=== PATIENT | male | born 1955 | race Caucasian/White ===

== ENCOUNTER → 2019-08-22 08:43 | Outpatient (BNVA) | payer MEDICARE, SELFPAY | PROVIDERS: Family Provider Nurse Practitioner Family; PCP Nurse Practitioner Family; Visit Provider Anesthesiology | DX: G89.29 Other chronic pain (principal); M54.5 Low back pain; M79.651 Pain in right thigh; M79.652 Pain in left thigh; L03.90 Cellulitis, unspecified; Z79.891 Long term (current) use of opiate analgesic | CPT/HCPCS: 99214 ==

== ENCOUNTER 2019-08-28 13:30 | Outpatient (RCR) | payer MEDICARE, SELFPAY | END 2019-09-01 23:59 | disposition home or self-care (01) | LOC: RAD 13:30 | PROVIDERS: Family Provider Nurse Practitioner Family; PCP Nurse Practitioner Family; Visit Provider Surgery | DX: I87.2 Venous insufficiency (chronic) (peripheral) (principal); L97.823 Non-pressure chronic ulcer of other part of left lower leg with necrosis of muscle; M79.604 Pain in right leg; M79.605 Pain in left leg | CPT/HCPCS: 11042; 11045; 99203; 99212; G0463 ==

== ENCOUNTER 2019-08-28 14:11 | Emergency (ER) | payer MEDICARE, SELFPAY ==
[2019-08-28 14:56] LABS: Basophils # 0.2 10^3/uL (0.0-0.1); Basophils % 1.3 %; Eosinophils # 0.4 10^3/uL (0.0-0.8); Eosinophils % 3.7 %; Hematocrit 31.9 % (42.0-52.0); Hemoglobin 9.1 g/dL (11.7-16.6); Lymphocytes # 0.9 10^3/uL (0.8-4.8); Lymphocytes % 8.4 %; Mean Corpuscular HGB Conc 28.5 g/dL (30.0-36.0); Mean Corpuscular Volume 84.2 fL (80-94); Monocytes # 0.9 10^3/uL (0.2-0.9); Neutrophils # 8.7 10^3/uL (1.8-7.7); Neutrophils % 77.8 %; Nucleated Red Blood Cells % 0 %; Platelet Count 302 10^3/cmm (130-400); Red Blood Count 3.79 10^6/uL (4.1-5.3); Red Cell Distribution Width 17.7 % (12.1-15.1); White Blood Count 11.1 10^3/uL (4.0-10.0)
[2019-08-28 15:03] VITALS: BP 170/89; PULSE 63; RESP 16; TEMP 36.4; O2SAT 100; BMI 57.2
[2019-08-28 15:15] LABS: Alanine Aminotransferase 11 U/L (0-41); Albumin Level 3.6 g/dL (3.5-5.2); Alkaline Phosphatase 125 IU/L (40-130); Anion Gap 17.9 (5-19); Aspartate Amino Transferase 14 U/L (0-40); Blood Urea Nitrogen 29 mg/dL (8-23); Calcium 9.3 mg/dL (8.5-10.5); Carbon Dioxide 24 mmol/L (22-29); Chloride 100 mmol/L (98-107); Globulin 3.8 g/dL (1.3-4.6); Glomerular Filtration Rate 61.1 mL/min (90-130); Glucose 256 mg/dL (74-106); Potassium 4.9 mmol/L (3.5-5.1); Sodium 137 mmol/L (136-145); Total Bilirubin 0.3 mg/dL (0.15-1.2); Total Protein 7.4 g/dL (6.6-8.7)
== END 2019-08-28 15:39 | disposition left against medical advice (07) ==
LOC: ER 15:39
PROVIDERS: Emergency Medicine; Emergency Provider Family Medicine; Family Provider Nurse Practitioner Family; PCP Nurse Practitioner Family
DX: Z53.21 Procedure and treatment not carried out due to patient leaving prior to being seen by health care provider (principal)
CPT/HCPCS: 36415; 80053; 85025; 99281

== ENCOUNTER 2019-09-05 13:27 | Emergency (ER) | payer MEDICARE, SELFPAY ==
[2019-09-05 14:52] VITALS: BP 122/74; PULSE 70; RESP 18; TEMP 36.6; O2SAT 94; BMI 61.6
--- NOTE | 2019-09-05 15:00 | XR_ITS ---
WS: [id number] CHEST XRAY TECHNIQUE: Portable chest. CLINICAL INFORMATION: SOB COMPARISON: June 01, 2019 FINDINGS: Heart: Cardiomegaly. Lungs: Mild chronic emphysematous changes. No acute pulmonary infiltrates. Calcified granulomatous di sease. Bones: Normal visualized bony structures. XR/XR chest 1V portable [id number] IMPRESSION: Marked cardiomegaly unchanged. Lungs are well aerated.
[2019-09-05 15:34] LABS: Basophils # 0.2 10^3/uL (0.0-0.1); Basophils % 1.6 %; Eosinophils # 0.6 10^3/uL (0.0-0.8); Eosinophils % 5.6 %; Hematocrit 29.6 % (42.0-52.0); Hemoglobin 8.5 g/dL (11.7-16.6); Lymphocytes # 0.8 10^3/uL (0.8-4.8); Lymphocytes % 8.1 %; Mean Corpuscular HGB Conc 28.7 g/dL (30.0-36.0); Mean Corpuscular Hemoglobin 23.5 pg (28.0-34.0); Mean Platelet Volume 10.2 fL (7.4-10.4); Monocytes # 0.8 10^3/uL (0.2-0.9); Monocytes % 8.1 %; Neutrophils # 7.5 10^3/uL (1.8-7.7); Neutrophils % 75.7 %; Nucleated Red Blood Cells % 0 %; Platelet Count 399 10^3/cmm (130-400); Red Blood Count 3.61 10^6/uL (4.1-5.3); Red Cell Distribution Width 17.6 % (12.1-15.1)
[2019-09-05 15:51] LABS: Alanine Aminotransferase 12 U/L (0-41); Albumin Level 3.6 g/dL (3.5-5.2); Alkaline Phosphatase 133 IU/L (40-130); Anion Gap 14.4 (5-19); Aspartate Amino Transferase 21 U/L (0-40); Blood Urea Nitrogen 29 mg/dL (8-23); Calcium 9.2 mg/dL (8.5-10.5); Carbon Dioxide 25 mmol/L (22-29); Chloride 101 mmol/L (98-107); Globulin 3.9 g/dL (1.3-4.6); Glomerular Filtration Rate 51.2 mL/min (90-130); NT Pro B Type Natriuretic Pept 1048 pg/mL (0-125); Potassium 5.4 mmol/L (3.5-5.1); Sodium 135 mmol/L (136-145); Total Bilirubin 0.2 mg/dL (0.15-1.2); Total Protein 7.5 g/dL (6.6-8.7)
[2019-09-05 16:10] LABS: INR 2.53 (0.8-1.2); Partial Thromboplastin Time 49.1 SECONDS (23.9-36.7)
--- NOTE | 2019-09-05 17:09 | PC.NURSE ---
pt has multiple weeping wounds. Pt has weeping wound to his panis and bilateral lower leg venous staining.
--- NOTE | 2019-09-05 17:42 | ED_ITS ---
Entered by Yamileth Portillo, acting as scribe for Rose Sorenson MD Sep 05, 2019 13:27 HPI - General Adult General: Chief complaint: General Medical Stated complaint: leaking fluid/sent by [facility] Time Seen by Provider: 09/05/19 17:47 Source: patient and family Mode of arrival: wheelchair Limitations: no limitations History of Present Illness: HPI narrative: 64 yo male presents with edema to bilateral legs. pt states this started several days ago but worsened today. pt states he was told he needed to come to the ED by PCP for fluid to be drained off his abdomen. pt has redness to lower extremities and bilateral legs. pt is on lasik. pt denies any pain at this time. complaint: fluid needs drained from abdomen Onset (ago): day(s) (yesterday) Location: abdomen and lower extremity (bilateral leg swelling) Radiation: non-radiation Severity: moderate Pain Consistency: other (no pain,just drainage ) Relieving factors: none Exacerbating factors: movement Associated symptoms: Reports no associated symptoms; Deny chest pain, headache(s) or rash Treatments prior to arrival: other (sent from [facility] for fluid drainage ) Review of Systems Const: Denies: fever, chills, body aches or change in appetite Eyes: Denies: blurry vision or eye discomfort ENMT: Denies: throat pain or dental pain Card: Denies: chest pain : Denies: painful urination Musc: Denies: neck pain or back pain Skin/Breast: Denies: rash Neuro: Denies: headache Psych: Denies: depression Glen/Lymph: Denies: easy bruising All/Imm: Denies: hives PFSH ED PFSH: Statuses (acute, chronic, etc) shown below reflect problem list status as previously entered and may not be historically accurate Social History (System 09/05/19 @ 13:56 by Angelia Pak) Smoking and tobacco status: never smoked Alcohol intake: never Marital status: Physical Exam Const: COMMON NORMALS: no apparent distress, oriented x3 and healthy appearing HENMT: COMMON NORMALS: normocephalic and head/scalp atraumatic HEAD & SCALP: normocephalic and atraumatic Eye: COMMON NORMALS: PERRL and EOMs intact bilaterally PUPIL: Yes PERRL Neck/C-Spine: COMMON NORMALS: full ROM and supple Chest: COMMONS NORMALS: inspection of chest normal and palpation of chest normal Cardio: COMMON NORMALS: regular rate, regular rhythm and no murmurs RATE: regular rate RHYTHM: regular rhythm Extremity: COMMON NORMALS: normal to inspection and full ROM GENERAL: Yes edema (bilateral legs and abdomen) Neuro: COMMON NORMALS: oriented x3 Psych: COMMON NORMALS: mental status grossly normal, thought process normal and cooperative THOUGHT PROCESS: normal thought process Skin: COMMON NORMALS: no rashes or lesions noted and no wounds NARRATIVE SKIN EXAM: 2+ edema to lower extremities GENERAL SKIN EXAM: no rashes or lesions noted Course Vital Signs: Vital signs: Vital Signs Temperature 97.9 F 09/05/19 14:52 Pulse Rate 90 09/05/19 19:29 Respiratory Rate 20 H 09/05/19 19:29 Blood Pressure 128/87 09/05/19 19:29 Pulse Oximetry 93 09/05/19 19:29 MDM - General Adult MDM Narrative: Medical decision making narrative: Patient presents here with edema likely from his CHF along with his obesity. He has no signs of congestive heart failure and his BNP and x-ray here are not worse than previous. 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 Flores and will increase his Lasix from 40 twice a day to 80 twice a day. He is to follow-up with Dr. Flores in 3 to 5 days and return to ER if worsening. Lab Data: Labs: Lab Results 09/05/19 09/05/19 09/05/19 Range/Units 15:12 15:12 15:12 WBC 10.0 (4.0-10.0) 10^3/ uL RBC 3.61 L (4.1-5.3) 10^6/u L Hgb 8.5 L (11.7-16.6) g/dL Hct 29.6 L (42.0-52.0) % MCV 82.0 (80-94) fL MCH 23.5 L (28.0-34.0) pg MCHC 28.7 L (30.0-36.0) g/dL RDW 17.6 H (12.1-15.1) % Plt Count 399 (130-400) 10^3/c mm MPV 10.2 (7.4-10.4) fL Neut % (Auto) 75.7 % Lymph % (Auto) 8.1 % Mellette % (Auto) 8.1 % Eos % (Auto) 5.6 % Baso % (Auto) 1.6 % Neut # (Auto) 7.5 (1.8-7.7) 10^3/u L Lymph # (Auto) 0.8 (0.8-4.8) 10^3/u L Mellette # (Auto) 0.8 (0.2-0.9) 10^3/u L Eos # (Auto) 0.6 (0.0-0.8) 10^3/u L Baso # (Auto) 0.2 H (0.0-0.1) 10^3/u L Nucleated RBC % (a uto) 0 % Nucleated RBCs # 0.0 /100WBC PT 28.20 H (10.5-13.3) SECO NDS INR 2.53 H (0.8-1.2) APTT 49.1 H (23.9-36.7) SECO NDS Sodium 135 L (136-145) mmol/L Potassium 5.4 H (3.5-5.1) mmol/L Chloride 101 (98-107) mmol/L Carbon Dioxide 25 (22-29) mmol/L Anion Gap 14.4 (5-19) BUN 29 H (8-23) mg/dL Creatinine 1.4 H (0.7-1.2) mg/dL GFR Calculation 51.2 L (90-130) mL/min Glucose 151 H (65-115) mg/dL Calcium 9.2 (8.5-10.5) mg/dL Total Bilirubin 0.2 (0.15-1.2) mg/dL AST 21 (0-40) U/L ALT 12 (0-41) U/L Alkaline Phosphata se 133 H (40-130) IU/L NT-Pro-B Natriuret Pep 1048 H (0-125) pg/mL Total Protein 7.5 (6.6-8.7) g/dL Albumin 3.6 (3.5-5.2) g/dL Globulin 3.9 (1.3-4.6) g/dL Imaging Data^: CXR: Attestation: I personally reviewed and interpreted this imaging study as follows: My impression: no acute abnormality Discharge Plan Discharge Patient Disposition: Home, Self-Care Clinical Impression: Leg edema Condition: Stable Prescriptions: New Lasix 80 mg tablet 80 mg PO BID Qty: 60 RF: 0 No Action cephalexin [Keflex] 500 mg capsule 500 mg PO BID 10 Days Qty: 20 RF: 0 buspirone 15 mg tablet 15 mg PO BID 30 Days Qty: 60 RF: 1 duloxetine [Cymbalta] 20 mg capsule,delayed release(DR/EC) 20 mg PO BID 30 Days Qty: 60 RF: 1 tramadol 50 mg tablet 50 mg PO .FIVE TIMES DAILY 30 Days Qty: 150 RF: 1 hydrocodone-acetaminophen 10-325 mg tablet 1 tab PO .FIVE TIMES DAILY PRN (Reason: pain) 30 Days Qty: 150 RF: 0 pregabalin [Lyrica] 150 mg capsule 150 mg PO TID 30 Days Qty: 90 RF: 1 hydrocodone-acetaminophen 10-325 mg tablet 1 tab PO .5 times a day PRN (Reason: pain) 30 Days Qty: 150 RF: 0 furosemide [Lasix] 40 mg tablet 40 mg PO BID RF: 0 Januvia 50 mg tablet 50 mg PO QDAY RF: 0 lisinopril 5 mg tablet 5 mg PO QDAY RF: 0 buspirone 15 mg tablet 15 mg PO BID RF: 0 metoprolol succinate 100 mg tablet extended release 24 hr 100 mg PO BID RF: 0 warfarin 2.5 mg tablet 2.5 mg PO QDAY RF: 0 aspirin [Adult Aspirin Regimen] 81 mg tablet,delayed release (DR/EC) 81 mg PO QDAY RF: 0 atorvastatin 10 mg tablet 10 mg PO QDAY RF: 0 Januvia 50 mg tablet 50 mg PO QDAY Qty: 90 RF: 1 Discharge Orders: Discharge Order (Routine); Ordered 09/05/19 Ordered By: Rose Sorenson Referrals: Davide Castanon, COOKER SYRUP [Primary Care Provider] - 4-7 days Discharge Diet: Advance as tolerated Discharge Activity: Resume usual activity Patient Instructions: Leg Edema (ED) Discharge Date/Time: 09/05/19 19:43 Coding Level of Care Code ED Journalism Professor for g Fwd Exam Problem Focused The documentation recorded by the Bandar pak Bridget Annette, accurately reflects the service I personally performed and the decisions made by me, Rose Sorenson MD Sep 05, 2019 13:27
[2019-09-05] MEDS: FUROsemide 10 mg/mL SDV 10mL 80 MG IVP (18:45)
--- NOTE | 2019-09-05 19:18 | PC.NURSE ---
Introduced self to patient and initiated vital signs. Pt is A&O x 4 and agreeable. Pt was advised by home health nurse and PCP to come to ER due to leakage issue. Pt states that the reason for the ER visit today is due to fluid leakage from base of panus. Area is reddish and warm. Reassured patient of needs and will continue to monitor.
[2019-09-05 19:29] VITALS: BP 128/87; PULSE 90; RESP 20; O2SAT 93
[2019-09-06 08:58] LABS: Glucose 151 mg/dL (65-115)
== END 2019-09-05 19:43 | disposition home or self-care (01) ==
PROVIDERS: Emergency Medicine; Emergency Provider Emergency Medicine; Family Provider Nurse Practitioner Family; PCP Nurse Practitioner Family
DX: R60.0 Localized edema (principal); I50.9 Heart failure, unspecified; E66.9 Obesity, unspecified
CPT/HCPCS: 71045; 80053; 83880; 85025; 85610; 85730; 96374; 96375; 99281; 99283; J1940

== ENCOUNTER → 2019-09-06 08:46 | Outpatient (BNVA) | payer MEDICARE, SELFPAY | PROVIDERS: Family Provider Nurse Practitioner Family; PCP Nurse Practitioner Family; Visit Provider Nurse Practitioner Family | DX: R60.0 Localized edema (principal) | CPT/HCPCS: 83540 ==

== ENCOUNTER → 2019-10-17 08:54 | Outpatient (BNVA) | payer MEDICARE, SELFPAY | PROVIDERS: Family Provider Nurse Practitioner Family; PCP Nurse Practitioner Family; Visit Provider Anesthesiology | DX: G89.29 Other chronic pain (principal); M54.5 Low back pain; Z79.891 Long term (current) use of opiate analgesic | CPT/HCPCS: 99213; 99214 ==

== ENCOUNTER 2020-02-01 19:38 | Inpatient (IN) | payer MEDICARE, SELFPAY ==
[2020-02-01] VITALS (7 sets, daily range): BP systolic 97–114; BP diastolic 57–63; PULSE 73–98; RESP 18–26; TEMP 36.6; O2SAT 93–100
--- NOTE | 2020-02-01 20:01 | W.ED.GENADLT ---
HPI - General Adult General: Chief complaint: General Medical Stated complaint: AMS Time Seen by Provider: 02/01/20 19:52 Source: patient and family Limitations: altered mental status History of Present Illness: HPI narrative: Jacob is a 64-year-old male brought in by his with report of increased confusion, low blood pressure and decreased urinary output for the past 2 days. His states he has not been wanting to eat or drink. She also relates that he has been having hallucinations at times. Patient states that he feels horrible all over but cannot be more specific. Patient admits to actively hallucinating seeing things on the wall that he states do not make sense. is unaware of any fever. He does not complain specifically of chest pain, shortness of breath just that he hurts all over . Review of Systems General: Reports: Other (ROS unobtainable as patient is uncooperative other than as noted from him and in HPI.) PFSH ED PFSH: Medical History Anasarca Anxiety Atrial fibrillation Cardiomyopathy Chronic bilateral low back pain Chronic idiopathic pain syndrome Chronic kidney disease (CKD) Congestive heart failure 20-25% EF pulmonary hypertension Diabetes mellitus Encounter for long-term opiate analgesic use History of cardioversion Failed electrical cardioversion in 2011 for A. fib Morbid obesity Venous stasis Warfarin anticoagulation Surgical History S/P ankle fusion LEFT S/P cholecystectomy Family History Father Diabetes Social History Smoking and tobacco status: never smoked Second hand smoke exposure: No Alcohol intake: never Marital status: History of recent travel: No Physical Exam Const: COMMON NORMALS: healthy appearing GENERAL APPEARANCE: cooperative, disheveled and lethargic NUTRITIONAL APPEARANCE: obese ORIENTATION/CONSCIOUSNESS: Yes awake, Yes oriented to person and Yes lethargic HENMT: COMMON NORMALS: normocephalic, atraumatic, external ears normal, EAC's normal and Normal external nose present HEAD & SCALP: normal to inspection, normocephalic and atraumatic FACE & SINUS: normal facial exam and face symmetric NOSE: Normal external nose present and Normal nares present EXTERNAL EAR: Yes external ears normal EXTERNAL AUDITORY CANAL: EAC's normal MOUTH: Normal oral and palatal mucosa present, lip normal and tongue normal Eye: COMMON NORMALS: Equal, round and reactive pupils present and conjunctivae normal GENERAL EYE: appearance normal, both eyes and all related structures ALIGNMENT: Yes alignment normal PERIORBITAL: periorbital findings normal EYELID: eyelids normal CONJUNCTIVA: Yes conjunctivae normal SCLERA: sclerae normal PUPIL: Yes Equal, round and reactive pupils present Neck/C-Spine: COMMON NORMALS: full ROM, no lymphadenopathy, supple, no meningeal signs and no JVD GENERAL: Yes normal visual inspection and Yes trachea midline Chest: COMMONS NORMALS: normal inspection of the chest and normal palpation of entire chest wall Resp: COMMON NORMALS: normal respiratory effort, No retractions and No use of accessory muscles EFFORT & INSPECTION: Yes able to speak in complete sentences and Yes symmetric chest movement AUSCULTATION: no crackles, no rales, no rhonchi and no wheezes Cardio: COMMON NORMALS: no JVD, regular rate, regular rhythm, S1 normal heart sound present and S2 normal heart sound present RATE: regular rate RHYTHM: regular rhythm HEART SOUNDS: S1 normal heart sound present, S2 normal heart sound present, no click, no gallops, no murmurs, no rubs and abnormal split S2 GI: COMMON NORMALS: Soft to palpation and No hepatosplenomegaly present PALPATION: Yes Soft to palpation, No Tenderness to palpation present (GI), No Guarding due to palpation present (GI), No Rigid due to palpation, Yes No hepatosplenomegaly present, No Hernia present, No Palpable mass present, No Pulsatile mass present and Yes Other GI palpation findings present (Large abdominal pannus with underlying candidal rash) : COMMON NORMALS: Yes no CVA tenderness BLADDER/KIDNEY EXAM: Yes no CVA tenderness Back/Pelvis: COMMON NORMALS: no CVA tenderness, thoracic and lumbar spine normal to inspection, no thoracic nor lumbar tenderness and thoraco-lumbar ROM normal Extremity: COMMON NORMALS: normal to inspection, full ROM, capillary refill normal, no joint enlargement, no clubbing, cyanosis or edema and no calf tenderness Neuro: COMMON NORMALS: CN's II-XII intact bilaterally, moves all extremities, no focal motor deficits and no sensory deficits noted SENSORIUM/ORIENTATION: Yes oriented to person and Yes lethargic MENINGEAL SIGNS: Yes no meningeal signs SPEECH: speech normal Skin: COMMON NORMALS: no rashes or lesions noted, turgor normal, no jaundice, no petechiae and no mottling GENERAL SKIN EXAM: no rashes or lesions noted and turgor normal Course ED course: 2199 -Case reviewed with Dr. Betancourt, on-call for tele-nephrology. He agrees to do a tele-nephrology consult in the ER. He agrees with the hyperkalemic cocktail and a Min catheter along with IV fluids. Vital Signs: Vital signs: Vital Signs Temperature 99.9 F H 02/02/20 12:00 Pulse Rate 98 02/02/20 12:00 Respiratory Rate 20 H 02/02/20 12:00 Blood Pressure 100/43 02/02/20 12:00 Pulse Oximetry 100 02/02/20 12:00 MDM - General Adult MDM Narrative: Medical decision making narrative: Jacob is a 64-year-old male who comes in with confusion, low blood pressure, decreased appetite, confusion and hallucinations. CT head is normal. His EKG does not reveal signs of hyperkalemia. I did review the case with Drs. Millan and Serafin, they will admit and consult respectively. Dr. Wilkinson is aware for possible consult if needed for dialysis. Min catheter is been placed with 350 cc of urine obtained. Patient is getting gentle hydration and Dr. Greene will monitor clinically. Repeat BMP is pending at this time. Patient is still encephalopathic likely due to uremia but his vital signs are stable with a good blood pressure. As the patient's INR is elevated we are reversing this in case he needs a dialysis catheter. Lab Data: Attestation: I reviewed the patient's lab results. Labs: Lab Results 02/01/20 02/01/20 02/01/20 Range/Units 20:34 20:34 20:34 WBC 17.1 H (4.0-10.0) 10^3/ uL RBC 3.96 L (4.1-5.3) 10^6/u L Hgb 8.3 L (11.7-16.6) g/dL Hct 29.8 L (42.0-52.0) % MCV 75.3 L (80-94) fL MCH 21.0 L (28.0-34.0) pg MCHC 27.9 L (30.0-36.0) g/dL RDW 22.0 H (12.1-15.1) % Plt Count 524 H (130-400) 10^3/c mm MPV 9.8 (7.4-10.4) fL Neut % (Auto) 86.5 % Lymph % (Auto) 3.6 % Woodson % (Auto) 7.9 % Eos % (Auto) 0.6 % Baso % (Auto) 0.6 % Neut # (Auto) 14.8 H (1.8-7.7) 10^3/u L Lymph # (Auto) 0.6 L (0.8-4.8) 10^3/u L Woodson # (Auto) 1.4 H (0.2-0.9) 10^3/u L Eos # (Auto) 0.1 (0.0-0.8) 10^3/u L Baso # (Auto) 0.1 (0.0-0.1) 10^3/u L Nucleated RBC % (a uto) 0.2 % Nucleated RBCs # 0.0 /100WBC PT 35.50 H (10.5-13.3) SECO NDS INR 3.39 H (0.8-1.2) Specimen Type Sample Site ABG pH (7.35-7.45) ABG pCO2 (35-45) mmHg ABG pO2 (80.0-100.0) mmH g ABG HCO3 (22-26) mmol/L ABG O2 Saturation ABG Base Excess (-2.0-2.0) mmol/ L Gautam Test A-a O2 Gradient (5-10) mmHg Hematocrit (42-52) % Hgb O2 Saturation (95-100) % Carboxyhemoglobin (0.4-20.1) %THgb Methemoglobin (0.4-1.5) % Total Hemoglobin (14-18) g/dL Ionized Calcium (1.1-1.4) mmol/L O2 Delivery Device FiO2 % Clinical Professor ID Sodium 130 L (136-145) mmol/L Potassium 7.7 H* (3.5-5.1) mmol/L Chloride 102 (98-107) mmol/L Carbon Dioxide 15 L (22-29) mmol/L Anion Gap 20.7 H (5-19) BUN 104 H* D (8-23) mg/dL Creatinine 4.7 H (0.7-1.2) mg/dL GFR Calculation 12.7 L (90-130) mL/min Glucose 87 (65-115) mg/dL Calculated Osmolal ity 271 L (285-295) mOsm/k g Lactic Acid (0.5-2.2) mmol/L Uric Acid (3.4-7.0) mg/dL Calcium 9.4 (8.5-10.5) mg/dL Magnesium 2.4 H (1.7-2.3) mg/dL Total Bilirubin 0.4 (0.15-1.2) mg/dL AST 26 (0-40) U/L ALT 16 (0-41) U/L Alkaline Phosphata se 130 (40-130) IU/L Ammonia (16-60) umol/L Creatine Kinase (39-308) U/L Troponin T Baselin e (0-15) ng/L Troponin T 120 Min tunica-biloxi (0-15) ng/L Delta Troponin T (0-10) ABS# NT-Pro-B Natriuret Pep 2884 H (0-125) pg/mL Total Protein 7.4 (6.6-8.7) g/dL Albumin 3.4 L (3.5-5.2) g/dL Globulin 4.0 (1.3-4.6) g/dL Lipase 92 H (13-60) U/L TSH (0.27-4.20) uIU/ mL Urine Color (Yellow) Urine Appearance (CLEAR) Urine pH (5-7) Ur Specific Gravit y (1.005-1.030) Urine Protein (Negative) Urine Glucose (UA) (Normal) Urine Ketones (Negative) Urine Blood (Negative) Urine Nitrate (Negative) Urine Bilirubin (NEGATIVE) Prot Sulfosalicyli c Acd Urine Urobilinogen (Negative) mg/dL Ur Leukocyte Christa ase (Negative) Ur Microscopic Ind ic Urine RBC (0-2) /hpf Urine WBC (0-5) /hpf Ur Squamous Epith Cells (0-5) Amorphous Sediment Urine Bacteria (NONE) Ur Random Sodium mmol/L Ur Random Urea Nit rogn mg/dL Urine Creatinine (39-259) mg/dL Urine Opiates Scre en (Negative) ng/mL Ur Barbiturates Sc reen (Negative) ng/mL Ur Phencyclidine S crn (Negative) ng/mL Ur Amphetamines Sc reen (Negative) ng/mL U Benzodiazepines Scrn (Negative) ng/mL Urine Cocaine Scre en (Negative) ng/mL U Marijuana (THC) Screen (Negative) ng/mL Ethyl Alcohol < 10 (0-10) mg/dL Serum Ketones (Negative) 02/01/20 02/01/20 02/01/20 Range/Units 20:34 20:34 20:34 WBC (4.0-10.0) 10^3/ uL RBC (4.1-5.3) 10^6/u L Hgb (11.7-16.6) g/dL Hct (42.0-52.0) % MCV (80-94) fL MCH (28.0-34.0) pg MCHC (30.0-36.0) g/dL RDW (12.1-15.1) % Plt Count (130-400) 10^3/c mm MPV (7.4-10.4) fL Neut % (Auto) % Lymph % (Auto) % Woodson % (Auto) % Eos % (Auto) % Baso % (Auto) % Neut # (Auto) (1.8-7.7) 10^3/u L Lymph # (Auto) (0.8-4.8) 10^3/u L Woodson # (Auto) (0.2-0.9) 10^3/u L Eos # (Auto) (0.0-0.8) 10^3/u L Baso # (Auto) (0.0-0.1) 10^3/u L Nucleated RBC % (a uto) % Nucleated RBCs # /100WBC PT (10.5-13.3) SECO NDS INR (0.8-1.2) Specimen Type Sample Site ABG pH (7.35-7.45) ABG pCO2 (35-45) mmHg ABG pO2 (80.0-100.0) mmH g ABG HCO3 (22-26) mmol/L ABG O2 Saturation ABG Base Excess (-2.0-2.0) mmol/ L Gautam Test A-a O2 Gradient (5-10) mmHg Hematocrit (42-52) % Hgb O2 Saturation (95-100) % Carboxyhemoglobin (0.4-20.1) %THgb Methemoglobin (0.4-1.5) % Total Hemoglobin (14-18) g/dL Ionized Calcium (1.1-1.4) mmol/L O2 Delivery Device FiO2 % Clinical Professor ID Sodium (136-145) mmol/L Potassium (3.5-5.1) mmol/L Chloride (98-107) mmol/L Carbon Dioxide (22-29) mmol/L Anion Gap (5-19) BUN (8-23) mg/dL Creatinine (0.7-1.2) mg/dL GFR Calculation (90-130) mL/min Glucose (65-115) mg/dL Calculated Osmolal ity (285-295) mOsm/k g Lactic Acid 1.4 (0.5-2.2) mmol/L Uric Acid (3.4-7.0) mg/dL Calcium (8.5-10.5) mg/dL Magnesium (1.7-2.3) mg/dL Total Bilirubin (0.15-1.2) mg/dL AST (0-40) U/L ALT (0-41) U/L Alkaline Phosphata se (40-130) IU/L Ammonia 26 (16-60) umol/L Creatine Kinase (39-308) U/L Troponin T Baselin e (0-15) ng/L Troponin T 120 Min tunica-biloxi (0-15) ng/L Delta Troponin T (0-10) ABS# NT-Pro-B Natriuret Pep (0-125) pg/mL Total Protein (6.6-8.7) g/dL Albumin (3.5-5.2) g/dL Globulin (1.3-4.6) g/dL Lipase (13-60) U/L TSH (0.27-4.20) uIU/ mL Urine Color (Yellow) Urine Appearance (CLEAR) Urine pH (5-7) Ur Specific Gravit y (1.005-1.030) Urine Protein (Negative) Urine Glucose (UA) (Normal) Urine Ketones (Negative) Urine Blood (Negative) Urine Nitrate (Negative) Urine Bilirubin (NEGATIVE) Prot Sulfosalicyli c Acd Urine Urobilinogen (Negative) mg/dL Ur Leukocyte Christa ase (Negative) Ur Microscopic Ind ic Urine RBC (0-2) /hpf Urine WBC (0-5) /hpf Ur Squamous Epith Cells (0-5) Amorphous Sediment Urine Bacteria (NONE) Ur Random Sodium mmol/L Ur Random Urea Nit rogn mg/dL Urine Creatinine (39-259) mg/dL Urine Opiates Scre en (Negative) ng/mL Ur Barbiturates Sc reen (Negative) ng/mL Ur Phencyclidine S crn (Negative) ng/mL Ur Amphetamines Sc reen (Negative) ng/mL U Benzodiazepines Scrn (Negative) ng/mL Urine Cocaine Scre en (Negative) ng/mL U Marijuana (THC) Screen (Negative) ng/mL Ethyl Alcohol (0-10) mg/dL Serum Ketones Negative (Negative) 02/01/20 02/01/20 02/01/20 Range/Units 20:34 20:35 22:28 WBC (4.0-10.0) 10^3/ uL RBC (4.1-5.3) 10^6/u L Hgb (11.7-16.6) g/dL Hct (42.0-52.0) % MCV (80-94) fL MCH (28.0-34.0) pg MCHC (30.0-36.0) g/dL RDW (12.1-15.1) % Plt Count (130-400) 10^3/c mm MPV (7.4-10.4) fL Neut % (Auto) % Lymph % (Auto) % Woodson % (Auto) % Eos % (Auto) % Baso % (Auto) % Neut # (Auto) (1.8-7.7) 10^3/u L Lymph # (Auto) (0.8-4.8) 10^3/u L Woodson # (Auto) (0.2-0.9) 10^3/u L Eos # (Auto) (0.0-0.8) 10^3/u L Baso # (Auto) (0.0-0.1) 10^3/u L Nucleated RBC % (a uto) % Nucleated RBCs # /100WBC PT (10.5-13.3) SECO NDS INR (0.8-1.2) Specimen Type Arterial Sample Site Brachial, right ABG pH 7.22 L (7.35-7.45) ABG pCO2 32.0 L (35-45) mmHg ABG pO2 86.6 (80.0-100.0) mmH g ABG HCO3 12.9 L (22-26) mmol/L ABG O2 Saturation 94.1 ABG Base Excess -13.7 L (-2.0-2.0) mmol/ L Gautam Test Pos A-a O2 Gradient 21.4 H (5-10) mmHg Hematocrit 26.1 L (42-52) % Hgb O2 Saturation 92.3 L (95-100) % Carboxyhemoglobin 0.6 (0.4-20.1) %THgb Methemoglobin 1.3 (0.4-1.5) % Total Hemoglobin 8.5 L (14-18) g/dL Ionized Calcium 1.3 (1.1-1.4) mmol/L O2 Delivery Device None FiO2 21.0 % Clinical Professor ID [email or web address] Sodium 133.0 (136-145) mmol/L Potassium 7.4 H (3.5-5.1) mmol/L Chloride (98-107) mmol/L Carbon Dioxide (22-29) mmol/L Anion Gap (5-19) BUN (8-23) mg/dL Creatinine (0.7-1.2) mg/dL GFR Calculation (90-130) mL/min Glucose 92.0 (65-115) mg/dL Calculated Osmolal ity (285-295) mOsm/k g Lactic Acid (0.5-2.2) mmol/L Uric Acid (3.4-7.0) mg/dL Calcium (8.5-10.5) mg/dL Magnesium (1.7-2.3) mg/dL Total Bilirubin (0.15-1.2) mg/dL AST (0-40) U/L ALT (0-41) U/L Alkaline Phosphata se (40-130) IU/L Ammonia (16-60) umol/L Creatine Kinase (39-308) U/L Troponin T Baselin e 64 H (0-15) ng/L Troponin T 120 Min tunica-biloxi (0-15) ng/L Delta Troponin T (0-10) ABS# NT-Pro-B Natriuret Pep (0-125) pg/mL Total Protein (6.6-8.7) g/dL Albumin (3.5-5.2) g/dL Globulin (1.3-4.6) g/dL Lipase (13-60) U/L TSH (0.27-4.20) uIU/ mL Urine Color Dark yellow (Yellow) Urine Appearance Cloudy (CLEAR) Urine pH 5 (5-7) Ur Specific Gravit y 1.025 (1.005-1.030) Urine Protein Neg (Negative) Urine Glucose (UA) Norm (Normal) Urine Ketones Negative (Negative) Urine Blood Neg (Negative) Urine Nitrate Negative (Negative) Urine Bilirubin 1+ H (NEGATIVE) Prot Sulfosalicyli c Acd Urine Urobilinogen Norm (Negative) mg/dL Ur Leukocyte Christa ase 2+ H (Negative) Ur Microscopic Ind ic Urine RBC 0-4 H (0-2) /hpf Urine WBC 15-25 H (0-5) /hpf Ur Squamous Epith Cells 0-4 H (0-5) Amorphous Sediment 3+ Urine Bacteria 2+ H (NONE) Ur Random Sodium mmol/L Ur Random Urea Nit rogn mg/dL Urine Creatinine (39-259) mg/dL Urine Opiates Scre en (Negative) ng/mL Ur Barbiturates Sc reen (Negative) ng/mL Ur Phencyclidine S crn (Negative) ng/mL Ur Amphetamines Sc reen (Negative) ng/mL U Benzodiazepines Scrn (Negative) ng/mL Urine Cocaine Scre en (Negative) ng/mL U Marijuana (THC) Screen (Negative) ng/mL Ethyl Alcohol (0-10) mg/dL Serum Ketones (Negative) 02/01/20 02/01/20 02/01/20 Range/Units 22:28 22:28 23:16 WBC (4.0-10.0) 10^3/ uL RBC (4.1-5.3) 10^6/u L Hgb (11.7-16.6) g/dL Hct (42.0-52.0) % MCV (80-94) fL MCH (28.0-34.0) pg MCHC (30.0-36.0) g/dL RDW (12.1-15.1) % Plt Count (130-400) 10^3/c mm MPV (7.4-10.4) fL Neut % (Auto) % Lymph % (Auto) % Woodson % (Auto) % Eos % (Auto) % Baso % (Auto) % Neut # (Auto) (1.8-7.7) 10^3/u L Lymph # (Auto) (0.8-4.8) 10^3/u L Woodson # (Auto) (0.2-0.9) 10^3/u L Eos # (Auto) (0.0-0.8) 10^3/u L Baso # (Auto) (0.0-0.1) 10^3/u L Nucleated RBC % (a uto) % Nucleated RBCs # /100WBC PT (10.5-13.3) SECO NDS INR (0.8-1.2) Specimen Type Sample Site ABG pH (7.35-7.45) ABG pCO2 (35-45) mmHg ABG pO2 (80.0-100.0) mmH g ABG HCO3 (22-26) mmol/L ABG O2 Saturation ABG Base Excess (-2.0-2.0) mmol/ L Gautam Test A-a O2 Gradient (5-10) mmHg Hematocrit (42-52) % Hgb O2 Saturation (95-100) % Carboxyhemoglobin (0.4-20.1) %THgb Methemoglobin (0.4-1.5) % Total Hemoglobin (14-18) g/dL Ionized Calcium (1.1-1.4) mmol/L O2 Delivery Device FiO2 % Clinical Professor ID Sodium (136-145) mmol/L Potassium (3.5-5.1) mmol/L Chloride (98-107) mmol/L Carbon Dioxide (22-29) mmol/L Anion Gap (5-19) BUN (8-23) mg/dL Creatinine (0.7-1.2) mg/dL GFR Calculation (90-130) mL/min Glucose (65-115) mg/dL Calculated Osmolal ity (285-295) mOsm/k g Lactic Acid (0.5-2.2) mmol/L Uric Acid (3.4-7.0) mg/dL Calcium (8.5-10.5) mg/dL Magnesium (1.7-2.3) mg/dL Total Bilirubin (0.15-1.2) mg/dL AST (0-40) U/L ALT (0-41) U/L Alkaline Phosphata se (40-130) IU/L Ammonia (16-60) umol/L Creatine Kinase (39-308) U/L Troponin T Baselin e (0-15) ng/L Troponin T 120 Min tunica-biloxi 56.59 H (0-15) ng/L Delta Troponin T -7.41 L (0-10) ABS# NT-Pro-B Natriuret Pep (0-125) pg/mL Total Protein (6.6-8.7) g/dL Albumin (3.5-5.2) g/dL Globulin (1.3-4.6) g/dL Lipase (13-60) U/L TSH (0.27-4.20) uIU/ mL Urine Color Cancelled (Yellow) Urine Appearance Cancelled (CLEAR) Urine pH Cancelled (5-7) Ur Specific Gravit y Cancelled (1.005-1.030) Urine Protein Cancelled (Negative) Urine Glucose (UA) Cancelled (Normal) Urine Ketones Cancelled (Negative) Urine Blood Cancelled (Negative) Urine Nitrate Cancelled (Negative) Urine Bilirubin Cancelled (NEGATIVE) Prot Sulfosalicyli c Acd Cancelled Urine Urobilinogen Cancelled (Negative) mg/dL Ur Leukocyte Christa ase Cancelled (Negative) Ur Microscopic Ind ic Cancelled Urine RBC (0-2) /hpf Urine WBC (0-5) /hpf Ur Squamous Epith Cells (0-5) Amorphous Sediment Urine Bacteria (NONE) Ur Random Sodium 18 mmol/L Ur Random Urea Nit rogn 503 mg/dL Urine Creatinine 177 (39-259) mg/dL Urine Opiates Scre en Positive H (Negative) ng/mL Ur Barbiturates Sc reen Negative (Negative) ng/mL Ur Phencyclidine S crn Negative (Negative) ng/mL Ur Amphetamines Sc reen Negative (Negative) ng/mL U Benzodiazepines Scrn Negative (Negative) ng/mL Urine Cocaine Scre en Negative (Negative) ng/mL U Marijuana (THC) Screen Negative (Negative) ng/mL Ethyl Alcohol (0-10) mg/dL Serum Ketones (Negative) 02/01/20 Range/Units 23:16 WBC (4.0-10.0) 10^3/ uL RBC (4.1-5.3) 10^6/u L Hgb (11.7-16.6) g/dL Hct (42.0-52.0) % MCV (80-94) fL MCH (28.0-34.0) pg MCHC (30.0-36.0) g/dL RDW (12.1-15.1) % Plt Count (130-400) 10^3/c mm MPV (7.4-10.4) fL Neut % (Auto) % Lymph % (Auto) % Woodson % (Auto) % Eos % (Auto) % Baso % (Auto) % Neut # (Auto) (1.8-7.7) 10^3/u L Lymph # (Auto) (0.8-4.8) 10^3/u L Woodson # (Auto) (0.2-0.9) 10^3/u L Eos # (Auto) (0.0-0.8) 10^3/u L Baso # (Auto) (0.0-0.1) 10^3/u L Nucleated RBC % (a uto) % Nucleated RBCs # /100WBC PT (10.5-13.3) SECO NDS INR (0.8-1.2) Specimen Type Sample Site ABG pH (7.35-7.45) ABG pCO2 (35-45) mmHg ABG pO2 (80.0-100.0) mmH g ABG HCO3 (22-26) mmol/L ABG O2 Saturation ABG Base Excess (-2.0-2.0) mmol/ L Gautam Test A-a O2 Gradient (5-10) mmHg Hematocrit (42-52) % Hgb O2 Saturation (95-100) % Carboxyhemoglobin (0.4-20.1) %THgb Methemoglobin (0.4-1.5) % Total Hemoglobin (14-18) g/dL Ionized Calcium (1.1-1.4) mmol/L O2 Delivery Device FiO2 % Clinical Professor ID Sodium 135 L (136-145) mmol/L Potassium 6.4 H (3.5-5.1) mmol/L Chloride 105 (98-107) mmol/L Carbon Dioxide 14 L (22-29) mmol/L Anion Gap 22.4 H (5-19) BUN 103 H* (8-23) mg/dL Creatinine 4.6 H (0.7-1.2) mg/dL GFR Calculation 13.0 L (90-130) mL/min Glucose 67 (65-115) mg/dL Calculated Osmolal ity 279 L (285-295) mOsm/k g Lactic Acid (0.5-2.2) mmol/L Uric Acid 10.3 H (3.4-7.0) mg/dL Calcium 9.1 (8.5-10.5) mg/dL Magnesium (1.7-2.3) mg/dL Total Bilirubin (0.15-1.2) mg/dL AST (0-40) U/L ALT (0-41) U/L Alkaline Phosphata se (40-130) IU/L Ammonia (16-60) umol/L Creatine Kinase 375 H* (39-308) U/L Troponin T Baselin e (0-15) ng/L Troponin T 120 Min tunica-biloxi (0-15) ng/L Delta Troponin T (0-10) ABS# NT-Pro-B Natriuret Pep (0-125) pg/mL Total Protein (6.6-8.7) g/dL Albumin (3.5-5.2) g/dL Globulin (1.3-4.6) g/dL Lipase (13-60) U/L TSH 1.11 (0.27-4.20) uIU/ mL Urine Color (Yellow) Urine Appearance (CLEAR) Urine pH (5-7) Ur Specific Gravit y (1.005-1.030) Urine Protein (Negative) Urine Glucose (UA) (Normal) Urine Ketones (Negative) Urine Blood (Negative) Urine Nitrate (Negative) Urine Bilirubin (NEGATIVE) Prot Sulfosalicyli c Acd Urine Urobilinogen (Negative) mg/dL Ur Leukocyte Christa ase (Negative) Ur Microscopic Ind ic Urine RBC (0-2) /hpf Urine WBC (0-5) /hpf Ur Squamous Epith Cells (0-5) Amorphous Sediment Urine Bacteria (NONE) Ur Random Sodium mmol/L Ur Random Urea Nit rogn mg/dL Urine Creatinine (39-259) mg/dL Urine Opiates Scre en (Negative) ng/mL Ur Barbiturates Sc reen (Negative) ng/mL Ur Phencyclidine S crn (Negative) ng/mL Ur Amphetamines Sc reen (Negative) ng/mL U Benzodiazepines Scrn (Negative) ng/mL Urine Cocaine Scre en (Negative) ng/mL U Marijuana (THC) Screen (Negative) ng/mL Ethyl Alcohol (0-10) mg/dL Serum Ketones (Negative) EKG Data^: EKG 1: Attestation: I personally reviewed and interpreted this EKG as follows: EKG interpretation date: 02/01/20 EKG interpretation time: 21:27 Interpretation: Atrial fibrillation at 77 beats a minute, interventricular conduction delay, otherwise no acute ST-T wave findings that are new. Computer generated interpretation: Chest X-Ray 02/01/20 20:02 IMPRESSION: No changes since September 05, [address] 02/01/20 20:02 IMPRESSION: No acute intracranial abnormality. Radiation Dose CTDIVOL = (mGy): DLP = 1304.14 (mGy-cm) Renal Ultrasound 02/02/20 04:52 IMPRESSION: Technically difficult examination. Kidneys appear normal. Critical Care Time Critical Care Time: Critical Care Time: Yes Total Critical Care Time: 30 Attestation: Critical care time consisted of reviewing of labs, treating hyperkalemia, consultation with other services/physicians as well as working with family, reviewing charts, documenting and arranging for admission. Discharge Plan Discharge Patient Disposition: Admitted As Inpatient Admit Provider: Wes Millan Clinical Impression: Acute renal failure, Congestive heart failure, Warfarin anticoagulation Condition: Stable Discharge Date/Time: 02/02/20 01:16 Coding Level of Care Code ED Haz Tech for Teeg Lionel
--- NOTE | 2020-02-01 20:02 | ECG_ITS ---
[facility] Test Date: 2020-02-01 Pat Name: Jacob Ibarra Department: Room: Gender: Male V [employer] C[employer]: : 1955 Requested By: Teri Deras Order Number: [id number] Fuentes MD: Celina Bates M.D. Measurements Intervals Drifting Rate: 77 P: UT: -1 QRS: -61 QRSD: 118 T: 108 QT: 354 QTc: 401 Interpretive Statements ATRIAL FIBRILLATION LOW QRS VOLTAGE IN PRECORDIAL LEADS INFERIOR MYOCARDIAL INFARCTION , PROBABLY OLD ANTEROSEPTAL MYOCARDIAL INFARCTION , OF INDETERMINATE AGE Compared to ECG 06/01/2019 18:42:59 Ventricular premature complex(es) no longer present Aberrant conduction of supraventricular beat(s) no longer present Left-axis deviation no longer present T-wave abnormality no longer present Possible ischemia no longer present Myocardial infarct finding still present Electronically Signed On 02-01-2020 21:22:38 CDT by Celina Bates M.D. [id number]
--- NOTE | 2020-02-01 20:02 | CTR_ITS ---
PROCEDURE INFORMATION: Exam: CT Head Without Contrast Exam date and time: 02/01/2020 8:10 PM Age: 64 years old Clinical indication: Altered mental status/memory loss; Confusion or disorientation; Additional info: AMS TECHNIQUE: Imaging protocol: Computed tomography of the head without contrast. Radiation optimization: All CT scans at this facility use at least one of these dose optimization techniques: automated exposure control; mA and/or kV adjustment per patient size (includes targeted exams where dose is matched to clinical indication); or iterative reconstruction. COMPARISON: No relevant prior studies available. RADIATION DOSE METRICS: Total DLP (mGy-cm): 1304.14 FINDINGS: Brain: Normal. No hemorrhage. Unremarkable white matter. No mass effect. Ventricles: Normal. No ventriculomegaly. Bones/joints: Unremarkable. No acute fracture. Sinuses: Visualized sinuses are unremarkable. No fluid levels. Mastoid air cells: Visualized mastoid air cells are well aerated. Soft tissues: Unremarkable. CT/CT head wo con* [id number] IMPRESSION: No acute intracranial abnormality. Radiation Dose CTDIVOL = (mGy): DLP = 1304.14 (mGy-cm)
--- NOTE | 2020-02-01 20:02 | XR_ITS ---
WS: [id number] CHEST XRAY TECHNIQUE: Portable chest. CLINICAL INFORMATION: AMS COMPARISON: September 05, 2019 FINDINGS: Heart: Cardiomegaly. Lungs: Mild pulmonary vascular congestion. No acute pulmonary infiltrates. No changes since September 05, 2019 Bones: Normal visualized bony structures. XR/XR chest 1V portable [id number] IMPRESSION: No changes since September 05, 2019
[2020-02-01 20:41] LABS: ABG PH Result 7.22 (7.35-7.45); Alveolar-Arterial Oxygen Gradi 21.4 mmHg (5-10); Arterial Blood Gas Hematocrit 26.1 % (42-52); Base Excess ABG -13.7 mmol/L (-2.0-2.0); Blood Gas Allen Test Pos; Blood Gas Sample Site Brachial, right; Blood Gas Sample Type Arterial; Carboxyhemoglobin 0.6 %THgb (0.4-20.1); HCO3 ABG 12.9 mmol/L (22-26); HGB O2 Sat 92.3 % (95-100); Ionized Calcium Level - ABG 1.3 mmol/L (1.1-1.4); Methemoglobin 1.3 % (0.4-1.5); Oxygen Saturation ABG 94.1; PO2 ABG 86.6 mmHg (80.0-100.0); Potassium Level - ABG 7.4 mmol/L (3.5-5.0); Total Hemoglobin 8.5 g/dL (14-18)
[2020-02-01 20:48] LABS: Basophils # 0.1 10^3/uL (0.0-0.1); Basophils % 0.6 %; Eosinophils # 0.1 10^3/uL (0.0-0.8); Eosinophils % 0.6 %; Hematocrit 29.8 % (42.0-52.0); Hemoglobin 8.3 g/dL (11.7-16.6); Lymphocytes # 0.6 10^3/uL (0.8-4.8); Lymphocytes % 3.6 %; Mean Corpuscular HGB Conc 27.9 g/dL (30.0-36.0); Mean Corpuscular Volume 75.3 fL (80-94); Mean Platelet Volume 9.8 fL (7.4-10.4); Monocytes # 1.4 10^3/uL (0.2-0.9); Monocytes % 7.9 %; Neutrophils # 14.8 10^3/uL (1.8-7.7); Neutrophils % 86.5 %; Nucleated Red Blood Cells % 0.2 %; Platelet Count 524 10^3/cmm (130-400); Red Blood Count 3.96 10^6/uL (4.1-5.3); White Blood Count 17.1 10^3/uL (4.0-10.0)
[2020-02-01 21:00] LABS: INR 3.39 (0.8-1.2)
[2020-02-01 21:04] LABS: Lactic Sepsis W/Reflex 1.4 mmol/L (0.5-2.2)
[2020-02-01 21:05] LABS: Ammonia 26 umol/L (16-60)
[2020-02-01 21:12] LABS: Troponin(5th) Baseline 64 ng/L (0-15)
[2020-02-01 21:20] LABS: Alanine Aminotransferase 16 U/L (0-41); Albumin Level 3.4 g/dL (3.5-5.2); Alkaline Phosphatase 130 IU/L (40-130); Anion Gap 20.7 (5-19); Aspartate Amino Transferase 26 U/L (0-40); Calcium 9.4 mg/dL (8.5-10.5); Carbon Dioxide 15 mmol/L (22-29); Chloride 102 mmol/L (98-107); Glomerular Filtration Rate 12.7 mL/min (90-130); Glucose 87 mg/dL (65-115); Lipase 92 U/L (13-60); Magnesium 2.4 mg/dL (1.7-2.3); NT Pro B Type Natriuretic Pept 2884 pg/mL (0-125); Osmolality Calculated 271 mOsm/kg (285-295); Sodium 130 mmol/L (136-145); Total Bilirubin 0.4 mg/dL (0.15-1.2); Total Protein 7.4 g/dL (6.6-8.7)
[2020-02-01 21:22] LABS: Ketone (Acetest) Serum Negative (Negative)
[2020-02-01 21:41] LABS: Alcohol Level < 10 mg/dL (0-10); Blood Urea Nitrogen 104 mg/dL (8-23); Potassium 7.7 mmol/L (3.5-5.1)
[2020-02-01] MEDS: calcium gluconate 0.1 gm/mL 10% SDV 10mL 1 GM IVP (21:55)
[2020-02-01] MEDS: sodium chloride 0.9% 1,000 ML 999 ML IV (22:00)
[2020-02-01] MEDS: dextrose 50% syringe 50 mL IVP (22:00)
[2020-02-01] MEDS: insulin regular-human 100 units/1 mL 10 UNIT IVP (22:01)
[2020-02-01] MEDS: sodium bicarbonate 8.4% 1 mEq/mL 50mL Syr 100 MEQ IVP (22:02)
--- NOTE | 2020-02-01 22:02 | ECG_ITS ---
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 Measurements Intervals [place] Rate: 90 P: [place]: -1 QRS: -53 QRSD: 100 T: 98 QT: 337 QTc: 413 Interpretive Statements ATRIAL FIBRILLATION LOW QRS VOLTAGE IN PRECORDIAL LEADS [QRS DEFLECTION < 1.0 mV IN CHEST LEADS] INFERIOR MYOCARDIAL INFARCTION [40+ ms Q WAVE AND/OR ST/T ABNORMALITY IN II/aVF], PROBABLY OLD ANTEROSEPTAL MYOCARDIAL INFARCTION [40+ ms Q WAVE IN V1-V4], PROBABLY OLD Compared to ECG 02/01/2020 21:27:20 No significant changes Electronically Signed On 02-02-2020 7:27:10 CDT by Zacarias Flores M.D. [id number]
--- NOTE | 2020-02-01 22:39 | P.CONIM_ITS ---
Providers/Reason For Consult Consulting Physican/Specialty*: Santo Betancourt Reason for Consult*: ALEYDA Primary Care Provider: LISHA Torres History of Present Illness History of Present Illness Thanks for consult. Mr Jacob Ibarra presents with weakness. not eating or drinking for the past few days, not eating or drinking and increasing confusion with hallucination. He has not passed urine for the last few days per his also. He is dry on examination. Min placed with dark appearance ~ 325mL so far. Back in August his creatinine was 1.4, it is now 4.7mg/dL, with high BUN of 104. Additionally his potassium is 7.7. He has a AGMA and leukocytosis. No history of prostate disease no urological operations. No prior exposure to nephrology, 50% function seen 6 years ago, but not seen since, ALEYDA, dialysis etc. On 01/22 during a prior evaluation he is found to be on lisinopril, ketorolac, Bactrim, lasix remains on these meds. Known medical history of CHF, Atrial fibrillation, chronic edema, CKD, DM, high BMI Her has been taking high doses of hydrocodone. Bp 114/63 now and it was significantly lower earlier this evening, with a low read of 78/18? Allergies PCN No smoking or alcohol use. No fevers but does have chills. Meds/Allergies Home Medications and Allergies Home Medications Medication Instructions Recorded Confirmed Last Taken Type aspirin 81 mg tablet,delayed 81 mg PO QDAY 08/19/19 01/23/20 Unknown History release atorvastatin 10 mg tablet 10 mg PO QDAY 08/19/19 01/23/20 Unknown History lisinopril 5 mg tablet 5 mg PO QDAY 08/19/19 01/23/20 Unknown History sitagliptin 50 mg tablet 50 mg PO QDAY #90 tab 08/23/19 01/23/20 Unknown Rx duloxetine 20 mg capsule,delayed 20 mg PO BID 30 Days #60 cap 10/17/19 01/23/20 Unknown Rx release warfarin 2.5 mg tablet 2.5 mg PO QDAY 90 Days #90 tab 10/30/19 01/23/20 Unknown Rx nystatin 100,000 unit/gram topical 1 applic TOPICAL BID 30 Days #60 gm 11/17/19 12/05/19 Unknown Rx ointment walker #1 each 11/17/19 12/05/19 Unknown Rx sulfamethoxazole 800 1 tab PO BID 10 Days #20 tab 11/21/19 12/05/19 Unknown Rx mg-trimethoprim 160 mg tablet buspirone 15 mg tablet 15 mg PO BID PRN 30 Days #60 tab 12/05/19 01/23/20 Unknown Rx hydrocodone 10 mg-acetaminophen 1 tab PO .FIVE TIMES DAILY PRN 30 12/05/19 12/05/19 Unknown Rx 325 mg tablet Days #150 tab tramadol 50 mg tablet 50 mg PO .FIVE TIMES DAILY 30 Days 12/05/19 01/23/20 Unknown Rx #150 tab ketorolac 10 mg tablet 20 mg PO Q6H PRN 5 Days #8 tab 01/09/20 01/23/20 Unknown Rx metoprolol tartrate 100 mg tablet 150 mg PO BID 90 Days #270 tab 01/09/20 01/23/20 Unknown Rx glyburide 2.5 mg tablet 2.5 mg PO DAILY #30 tab 01/16/20 01/23/20 Unknown Rx hydrocodone 10 mg-acetaminophen 1 tab PO .5 times a day PRN 30 01/23/20 01/23/20 Unknown Rx 325 mg tablet Days #150 tab pregabalin 150 mg capsule 150 mg PO TID 30 Days #90 cap 01/30/20 Unknown Rx Allergies Allergy/AdvReac Type Severity Reaction Status Date / Time Penicillins Allergy Unknown Unknown Verified 01/23/20 12:52 PFSH Acute PFSH: Medical History Anasarca Anxiety Atrial fibrillation Cardiomyopathy Chronic bilateral low back pain Chronic idiopathic pain syndrome Chronic kidney disease (CKD) Congestive heart failure Diabetes mellitus Encounter for long-term opiate analgesic use Morbid obesity Venous stasis Warfarin anticoagulation Surgical History S/P ankle fusion LEFT Family History Father Diabetes Social History Smoking and tobacco status: never smoked Second hand smoke exposure: No Alcohol intake: never Marital status: History of recent travel: No Vitals/I&O/Wt Last Vital Signs Temp 97.9 F 02/01/20 19:39 Pulse 90 02/01/20 22:06 Resp 26 H 02/01/20 22:06 BP 114/63 02/01/20 22:06 Pulse Ox 99 02/01/20 22:06 Physical Exam Const: COMMON NORMALS: no acute distress GENERAL APPEARANCE: comfortable NUTRITIONAL APPEARANCE: obese Chest: COMMONS NORMALS: normal inspection of the chest and normal palpation of entire chest wall Resp: COMMON NORMALS: normal respiratory effort, No retractions, No use of accessory muscles and clear to auscultation bilaterally AUSCULTATION: clear to auscultation bilaterally Cardio: COMMON NORMALS: S1 normal heart sound present and S2 normal heart sound present RHYTHM: abnormal rhythm HEART SOUNDS: S1 normal heart sound present and S2 normal heart sound present Extremity: GENERAL: Yes normal exam except as noted (chronic global anasarca ) Data Micro: Micro: Microbiology 02/01/20 20:38 Blood Culture - Pr eliminary Blood SPECIMEN COLLE KATHY 02/01/20 20:34 Blood Culture - Pr eliminary Blood SPECIMEN [facility] KATHY A&P Additional A&P Information 1. ALEYDA - likely to be multifactorial, from a combination of hypotension, ACEi/NSAID interference with glmoerular hemodynamics, possible Bactrim effect - Min placed with 325mL, ie this is not obstruction - Receiving liberal ivf - Repeat BMP in 1 hr; d/w RNs to notify me of result - Renal sono, CPK, TSH, urine studies inc FE Na - May need dialysis this evening if K fails to improve - Avoid the usuals - dose meds for eGFR < 15 2. Lytes - HyperK cocktail given - Repeat levels in 30 mins - HyperK due to ACEe/NSAIDs in the setting of renal failure - AGMA likely to be due uremia, LA ok - other lytes non critical 3. Leukocytosis - sepsis vs reactive - sepsis screen sent; Abx per primary team 4. 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
--- NOTE | 2020-02-01 23:02 | PM.HP ---
Providers/Chief Complaint Primary Care Provider: LISHA Torres Chief Complaint: AMS History of Present Illness Jacob Ibarra is a 64 year old male who has history of anasarca, severely reduced ejection fraction 20-25%, denies previous history of cardiac catheterization, chronic atrial fibrillation, chronic anticoagulation with Coumadin because of his BMI, chronic kidney disease brought in by his for worsening confusion. is stating that he spends all his time in his couch, he is leading sedentary lifestyle, he eats regular diet, his sugar has been ranging between 100-1 30mg, he has not been complaining of any chest pain shortness of breath nausea or vomiting but lately for last 2 to 3 days his p.o. intake has been decreased, she has not used any adequate urine output, he seems more confused, she has also noticed twitching of his extremities as well. He has stopped taking Bactrim. He has been taking lisinopril, ketorolac, hydrocodone. His last A1c was 6.9 in 2018. Diagnosis in the ER revealed severe hyperkalemia, bizarre EKG, patient was awake alert positive asterixis, nephrology was consulted on stat basis, INR supratherapeutic, He has received hyperkalemic cocktail Systolic blood pressure ranging between 88-90mmhg after [address] Wilkinson has been notified as well We are repeating CMP to see improvement in potassium in 30-minute He will receive 2 units FFP and vitamin K He was given imipenem in the ER as well for his worsening abdominal pannus and nonpurulent cellulitis of lower extremity We only got 350 cc of urine via straight cath Review of Systems Const: Reports: chills, body aches and fatigue; Denies: fever(s) Eyes: Denies: change in vision ENMT: Denies: throat pain Card: Reports: irregular heart rhythm, edema, swelling of feet/ankles, lightheadedness, dyspnea on exertion, orthopnea and leg pain with exertion; Denies: chest pain or palpitations Resp: Reports: dyspnea GI: Denies: abdominal pain, nausea or vomiting : Denies: flank pain Musc: Reports: extremity pain and limited range of motion; Denies: neck pain Skin/Breast: Reports: skin tenderness, skin swelling, changing lesions and changes in skin color Neuro: Denies: headache(s) Psych: Denies: anxiety or depression Endo: Denies: polyuria Glen/Lymph: Denies: easy bruising All/Imm: Denies: urticaria Medications/Allergies Home Medications Medication Instructions Recorded Confirmed Last Taken Type aspirin 81 mg tablet,delayed 81 mg PO QDAY 08/19/19 01/23/20 Unknown History release atorvastatin 10 mg tablet 10 mg PO QDAY 08/19/19 01/23/20 Unknown History lisinopril 5 mg tablet 5 mg PO QDAY 08/19/19 01/23/20 Unknown History sitagliptin 50 mg tablet 50 mg PO QDAY #90 tab 08/23/19 01/23/20 Unknown Rx duloxetine 20 mg capsule,delayed 20 mg PO BID 30 Days #60 cap 10/17/19 01/23/20 Unknown Rx release warfarin 2.5 mg tablet 2.5 mg PO QDAY 90 Days #90 tab 10/30/19 01/23/20 Unknown Rx nystatin 100,000 unit/gram topical 1 applic TOPICAL BID 30 Days #60 gm 11/17/19 12/05/19 Unknown Rx ointment walker #1 each 11/17/19 12/05/19 Unknown Rx sulfamethoxazole 800 1 tab PO BID 10 Days #20 tab 11/21/19 12/05/19 Unknown Rx mg-trimethoprim 160 mg tablet buspirone 15 mg tablet 15 mg PO BID PRN 30 Days #60 tab 12/05/19 01/23/20 Unknown Rx hydrocodone 10 mg-acetaminophen 1 tab PO .FIVE TIMES DAILY PRN 30 12/05/19 12/05/19 Unknown Rx 325 mg tablet Days #150 tab tramadol 50 mg tablet 50 mg PO .FIVE TIMES DAILY 30 Days 12/05/19 01/23/20 Unknown Rx #150 tab ketorolac 10 mg tablet 20 mg PO Q6H PRN 5 Days #8 tab 01/09/20 01/23/20 Unknown Rx metoprolol tartrate 100 mg tablet 150 mg PO BID 90 Days #270 tab 01/09/20 01/23/20 Unknown Rx glyburide 2.5 mg tablet 2.5 mg PO DAILY #30 tab 01/16/20 01/23/20 Unknown Rx hydrocodone 10 mg-acetaminophen 1 tab PO .5 times a day PRN 30 01/23/20 01/23/20 Unknown Rx 325 mg tablet Days #150 tab pregabalin 150 mg capsule 150 mg PO TID 30 Days #90 cap 01/30/20 Unknown Rx Allergies Allergy/AdvReac Type Severity Reaction Status Date / Time Penicillins Allergy Unknown Unknown Verified 01/23/20 12:52 PFSH Acute PFSH: Medical History Anasarca Anxiety Atrial fibrillation Cardiomyopathy Chronic bilateral low back pain Chronic idiopathic pain syndrome Chronic kidney disease (CKD) Congestive heart failure 20-25% EF pulmonary hypertension Diabetes mellitus Encounter for long-term opiate analgesic use History of cardioversion Failed electrical cardioversion in 2011 for A. fib Morbid obesity Venous stasis Warfarin anticoagulation Surgical History S/P ankle fusion LEFT S/P cholecystectomy Family History Father Diabetes Social History Smoking and tobacco status: never smoked Second hand smoke exposure: No Alcohol intake: never Marital status: History of recent travel: No Vitals/I&O/Wt Last Vital Signs Temp 97.9 F 02/01/20 19:39 Pulse 86 02/01/20 22:51 Resp 21 H 02/01/20 22:51 BP 97/57 02/01/20 22:51 Pulse Ox 97 02/01/20 22:51 Physical Exam Narrative: EXAM NARRATIVE: Morbid obese male lying comfortably in his bed He is awake alert oriented x3 GCS 15 Positive asterixis Generalized anasarca Nonpurulent cellulitis of abdominal pannus and lower extremities Drain 350 cc of urine on Min catheterization Variable S1-S2 Abdominal pannus, nontender, nonpurulent cellulitis of abdominal pannus No active restaurant distress, decreased breath sounds bilaterally Awake alert oriented times3 Skin shows venous stasis dermatitis Chronic skin lesion EOMI, PERRLA Urinary Catheter Management^: Min: Cath Placed During This Visit: yes Urinary Catheter Date of Insertion: 02/01/20 Urinary Catheter Time of Insertion: 22:20 Data : 02/01/20 20:34 02/01/20 20:34 Micro: Microbiology 02/01/20 20:38 Blood Culture - Preliminary Blood SPECIMEN COLLECTED 02/01/20 20:34 Blood Culture - Preliminary Blood SPECIMEN COLLECTED A&P Assessment and plan (1) Acute hyperkalemia: Status: Acute (2) Acute kidney injury: Status: Acute (3) Warfarin anticoagulation: Status: Acute (4) Congestive heart failure: Status: Acute (5) Anasarca: Status: Acute (6) Venous stasis: Status: Acute (7) Diabetes mellitus: Status: Chronic (8) Morbid obesity: Status: Chronic Additional A&P Information Acute hyperkalemia with bizarre EKG changes Patient has received hyperkalemic cocktail in the ER We are waiting on repeat bmp after the treatment Systolic blood pressure ranging between 88-90mmhg Considering EF 20% and acute kidney injury with hyperkalemia, he will go to ICU Telemetry yard truck driver consulted on stat Decision has been made to reverse the INR with FFP and vitamin K Acute on chronic kidney injury This seems secondary to hypotension, chronic opioid use use of lisinopril and diabetes Urine output 350 cc via straight cath done in the ER High anion gap metabolic acidosis due to uremia If potassium does not respond to the treatment will ask Dr. Wilkinson for placement of dialysis catheter Telemetry yard truck driver will be notified with second BMP I would hold on antibiotics Bactrim was discontinued recently Monitor for signs of uremic encephalopathy, patient has positive asterixis but right now he is awake alert oriented x3, GCS Generalized anasarca secondary to severely reduced action fraction Patient is not able to recall whether he had any discussion regarding cardiac catheterization however Dr. Flores note in 2012 recommended angiogram Not a candidate for diuresis because of hypotension Nonpurulent cellulitis of lower extremities and abdominal pannus Would avoid antibiotics at this point no active sepsis He recently stopped Bactrim Full code N.p.o. DVT prophylaxis: Avoid anticoagulation because of supratherapeutic INR, likely will need dialysis catheter Goals of care discussed with the family, patient and his both have good insight to his comorbid conditions, he carries guarded prognosis because of multiple comorbid conditions and acute kidney injury with hyperkalemia Attestations Medical Necessity Statement*: Anticipating stay in the hospital cross more than 2 midnights currently has hypokalemia, ALEYDA and hypotension Time Spent in Patient Care: (>than 50% of time spent in counselling and/or direct pt care on unit). 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
[2020-02-01 23:39] LABS: Troponin 5 2HR 56.59 ng/L (0-15)
[2020-02-01 23:40] LABS: Amphetamines Screen Urine Negative (Negative); Barbiturates Screen Urine Negative (Negative); Benzodiazepines Screen Urine Negative (Negative); Cocaine Screen Urine Negative (Negative); Opiate Screen Urine Positive (Negative); PCP Screen Urine Negative (Negative); THC Screen Urine Negative (Negative)
[2020-02-01 23:47] LABS: Anion Gap 22.4 (5-19); Calcium 9.1 mg/dL (8.5-10.5); Carbon Dioxide 14 mmol/L (22-29); Chloride 105 mmol/L (98-107); Glucose 67 mg/dL (65-115); Osmolality Calculated 279 mOsm/kg (285-295); Potassium 6.4 mmol/L (3.5-5.1); Sodium 135 mmol/L (136-145); Thyroid Stimulating Hormone 1.11 uIU/mL (0.27-4.20); Uric Acid 10.3 mg/dL (3.4-7.0)
[2020-02-01] MEDS: phytonadione (ADULT) 10 mg/mL Ampule 1 mL IV (23:47)
[2020-02-01 23:56] LABS: Blood Urea Nitrogen 103 mg/dL (8-23); Creatine Phosphokinase 375 U/L (39-308)
[2020-02-02] VITALS (32 sets, daily range): BP systolic 82–125; BP diastolic 40–80; PULSE 78–119; RESP 16–27; TEMP 36.7–37.7; O2SAT 80–100
[2020-02-02 00:03] LABS: Bilirubin Urine 1+ (NEGATIVE); Blood Urine Neg (Negative); Glucose Urine UA Norm (Normal); Ketones Urine Negative (Negative); Leukocyte Esterase Urine 2+ (Negative); Nitrate Urine Negative (Negative); Protein Urine Neg (Negative); Specific Gravity, Urine 1.025 (1.005-1.030); Urine Appearance Cloudy (CLEAR); Urine Color Dark Yellow (Yellow); Urobilinogen Urine Norm (Negative); pH Urine 5 (5-7)
[2020-02-02 00:05] LABS: Add Urine Culture? Yes; Amorphous Sediment Urine 3+; Bacteria Urine 2+; RBC Urine 0-4 /hpf (0-2); Squamous Epithelial Cell Urine 0-4 (0-5); WBC Urine 15-25 /hpf (0-5)
[2020-02-02] MEDS: dextrose 50% syringe 50 mL 25 ML IVP (00:11)
[2020-02-02] MEDS: sodium chloride 0.9% 1,000 ML 100 ML IV ×3 (00:15→18:58)
[2020-02-02] MEDS: sodium polystyrene sulfonate 15 gm/60 mL Btl PO (01:39)
--- NOTE | 2020-02-02 02:02 | ECG_ITS ---
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 Measurements Intervals [place] Rate: 88 P: [place]: -1 QRS: -49 QRSD: 96 T: 73 QT: 340 QTc: 413 Interpretive Statements ATRIAL FIBRILLATION LOW QRS VOLTAGE IN PRECORDIAL LEADS [QRS DEFLECTION < 1.0 mV IN CHEST LEADS] POSSIBLE ANTERIOR MYOCARDIAL INFARCTION [30 ms Q WAVE IN V3/V4, OR R < 0.2 mV IN V4], PROBABLY OLD INFERIOR MYOCARDIAL INFARCTION [40+ ms Q WAVE AND/OR ST/T ABNORMALITY IN II/aVF], PROBABLY OLD WARNING: DATA QUALITY MAY AFFECT INTERPRETATION INTERPRETATION BASED ON A DEFAULT AGE OF 40 YEARS Compared to ECG 02/01/2020 22:43:01 No significant changes Electronically Signed On 02-02-2020 7:27:31 CDT by Zacarias Flores M.D. [id number] lindquist
[2020-02-02 02:32] LABS: Troponin 5 6HR 60.67 ng/L (0-15)
[2020-02-02 02:37] LABS: Troponin 5 6HR Delta -3.33 ng/L (0-12)
[2020-02-02] MEDS: sodium bicarbonate 150 MEQ in dextrose 5% 1,000 ML IV (02:46)
--- NOTE | 2020-02-02 02:58 | PC.NURSE ---
Admit Note Arrived to unit at 0115 and is alert and pleasantly confused. Some moments of clarity knows month and birthday. Pt having tremors of arms and legs . Pt is restless and hallucinating, reports seeing chickens in his room. Order for 2 units FFP from ER is delayed due to No type and cross ordered. Type and screen has now been drawn. Pt has multiple skin issues. Pannus is large, firm edematous skin with erythema. Area is moist with copious serous drainage and foul odor. Pannus folds are moist, excoriated, with yeast smell and yellow drainage. Area was cleansed, dried. Nystatin applied. Patient has dark purple discoloration to buttocks which blanches and a 6cm L X 3 cm width stage 2 open area to medial sacrum close to anus. BLE have tight non-pitting edema with erythema. Skin is thick,rough, and cracking. Pt has history of venous stasis ulcers. Pt poorly tolerates cleansing and skin inspection, crying out and asking for pain medications. Admission assessment completed with Jaki sanabria over the phone, unable to obtain med list from and will obtain from [facility] in [facility].
[2020-02-02 03:15] LABS: Urine Creatinine 177 mg/dL (39-259)
--- NOTE | 2020-02-02 03:15 | PC.NURSE ---
Physician notified Unable to preform CT abd/pelvis due to patient weight of 425.
[2020-02-02 03:22] LABS: Urine Random Sodium 18 mmol/L
[2020-02-02 04:08] LABS: Urea Nitrogen,Urine Random 503 mg/dL
[2020-02-02 04:29] LABS: Basophils # 0.1 10^3/uL (0.0-0.1); Basophils % 0.5 %; Eosinophils # 0.1 10^3/uL (0.0-0.8); Eosinophils % 0.7 %; Hematocrit 27.3 % (42.0-52.0); Hemoglobin 7.5 g/dL (11.7-16.6); Lymphocytes # 0.6 10^3/uL (0.8-4.8); Lymphocytes % 4.6 %; Mean Corpuscular HGB Conc 27.5 g/dL (30.0-36.0); Mean Corpuscular Hemoglobin 20.8 pg (28.0-34.0); Mean Corpuscular Volume 75.8 fL (80-94); Mean Platelet Volume 10.7 fL (7.4-10.4); Monocytes # 1.2 10^3/uL (0.2-0.9); Monocytes % 9.1 %; Neutrophils # 10.9 10^3/uL (1.8-7.7); Neutrophils % 84.6 %; Nucleated Red Blood Cells % 0 %; Platelet Count 432 10^3/cmm (130-400); Red Cell Distribution Width 21.6 % (12.1-15.1); White Blood Count 12.9 10^3/uL (4.0-10.0)
--- NOTE | 2020-02-02 04:52 | US_ITS ---
WS: [id number] ULTRASOUND RENAL TECHNIQUE: Ultrasound examination of both kidneys. CLINICAL INFORMATION: melina COMPARISON: None. FINDINGS: Technically difficult examination. RIGHT: Right kidney is normal in size and appearance. Echogenicity: Normal. Cortical thickness: 1.9 cm; Normal. Hydronephrosis: None. Perinephric fluid: None. Right kidney measures: 12.1 cm x 7.4 cm x 7.5 cm. LEFT: Left kidney is normal in size and appearance. Echogenicity: Normal. Cortical thickness: 1.8 cm; Normal. Hydronephrosis: None. Perinephric fluid: None. Left kidney measures: 14.6 cm x 6.2 cm x 8.4 cm. Normal visualized aorta. US/US renal BI* [id number] IMPRESSION: Technically difficult examination. Kidneys appear normal.
[2020-02-02 04:55] LABS: INR 2.23 (0.8-1.2)
[2020-02-02 05:02] LABS: Anion Gap 22.2 (5-19); Carbon Dioxide 15 mmol/L (22-29); Chloride 106 mmol/L (98-107); Glomerular Filtration Rate 13.7 mL/min (90-130); Glucose 74 mg/dL (65-115); Osmolality Calculated 283 mOsm/kg (285-295); Potassium 6.2 mmol/L (3.5-5.1); Sodium 137 mmol/L (136-145)
--- NOTE | 2020-02-02 05:05 | PC.NURSE ---
mental status pt increasingly confused and restless, hallucinations and tremors have increased as well. Dr. Millan notified via phone and received no new orders.
[2020-02-02 05:37] LABS: Blood Urea Nitrogen 93 mg/dL (8-23)
[2020-02-02 07:04] LABS: INR 1.85 (0.8-1.2)
[2020-02-02 07:38] LABS: Glucose Point of Care 80 mg/dL (70-110)
[2020-02-02] MEDS: sodium chloride 0.9% 500 ML 999 ML IV (09:30)
--- NOTE | 2020-02-02 10:00 | PC.NURSE ---
1000-- STARLING CHEETAH PERFORMED ON PT D/T HYPOTENSION. FLUID CHALLENAGE DONE SVI DELTA 25% DR NEVAREZ NOTIFIED & X2 500ML BOLUS GIVEN. LEVOPHED EVENTUALLY STARTED D/T CONTINUED LOW BP
--- NOTE | 2020-02-02 10:04 | P.PN_ITS ---
Subjective Subjective: Interval history: Confused this morning, intermittently answering questions. No pain. Passing urine 350ml overnight and ~100ml so far today. On aggressive ivf therapy. Global anasarca looks unchanged from yesterday and he is maintaining his airway and he is without respiratory distress. Hemodynamics remain very labile this morning Vitals/I&O/Wt Last Vital Signs Temp 99.4 F 02/02/20 08:00 Pulse 98 02/02/20 08:00 Resp 18 02/02/20 08:00 BP 82/40 02/02/20 08:00 Pulse Ox 91 02/02/20 08:00 02/01/20 02/02/20 02/02/20 22:59 06:59 14:59 Intake Total 1623 / 1623 800 / 800 Output Total 250 / 250 Balance 1373 / 1373 800 / 800 Weight last 48 hrs Weight 192.867 kg Physical Exam Const: GENERAL APPEARANCE: comfortable NUTRITIONAL APPEARANCE: obese Chest: COMMONS NORMALS: normal inspection of the chest and normal palpation of entire chest wall Resp: COMMON NORMALS: normal respiratory effort, No retractions, No use of accessory muscles and clear to auscultation bilaterally AUSCULTATION: clear to auscultation bilaterally Cardio: COMMON NORMALS: S1 normal heart sound present and S2 normal heart sound present RHYTHM: abnormal rhythm HEART SOUNDS: S1 normal heart sound present and S2 normal heart sound present Extremity: GENERAL: Yes normal exam except as noted (chronic global anasarca ) Urinary Catheter Management^: Min: Cath Placed During This Visit: yes Reason for Continuing Indwelling Catheter: Assist healing open wound Urinary Catheter Date of Insertion: 02/01/20 Urinary Catheter Time of Insertion: 22:20 Data : 02/02/20 03:26 02/02/20 03:26 Micro: Microbiology 02/01/20 20:38 Blood Culture - Preliminary Blood SPECIMEN COLLECTED 02/01/20 20:34 Blood Culture - Preliminary Blood SPECIMEN COLLECTED A&P Additional A&P Information 1. ALEYDA - likely to be multifactorial, from a combination of hypotension, ACEi/NSAID interference with glmoerular hemodynamics, possible Bactrim effect (? stopped); FE Na 0.3% i.e predominantly pre-renal low flow state - Min placed with 325mL, ie this is not obstruction - Receiving liberal ivf - Renal sono looks good - Very high risk of needing dialysis but no critical indication at this time - Avoid the usuals - dose meds for eGFR < 15 2. Lytes - HyperK cocktail given last night; on bicarb GTT, this will help to bring down his K also - Repeat levels in 30 mins - HyperK due to ACEe/NSAIDs in the setting of renal failure - AGMA likely to be due uremia, LA ok - other lytes non critical - Repeat BMP this aftenoon 3. Leukocytosis - sepsis vs reactive - sepsis screen sent; Abx per primary team 4. AMS/delerium likely uremia; will improve with improvement in the renal func tion vs dialysis 5. 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
--- NOTE | 2020-02-02 10:05 | USCV_ITS ---
Jacob Ibarra Age: 64 Gender: M : 1955 Exam Date: 02/02/2020 12:35 Ordering Phys: James Lopes MD Technologist: Acosta Peck Exam Location: [facility] [place] Indication: BP: 100 / 43 HR: 89 Rhythm: Sinus Technical Quality: Technically difficult study MEASUREMENTS (Male / Female) Normal Values 2D ECHO LV Diastolic Diameter PLAX 5.9 cm 4.2 - 5.9 / 3.9 - 5.3 cm LV Systolic Diameter PLAX 3.6 cm IVS Diastolic Thickness 0.8 cm 0.6 - 1.0 / 0.6 - 0.9 cm IVS Systolic Thickness 1.7 cm LVPW Diastolic Thickness 1.4 cm 0.6 - 1.0 / 0.6 - 0.9 cm LVPW Systolic Thickness 1.5 cm LVOT Diameter 2.1 cm LV Ejection Fraction 2D Teich 68.0 % LV Ejection Fraction MOD 2C 67.3 % LV Ejection Fraction 2C AL 67.5 % LA Diameter 5.5 cm LA Width 3.7 cm LA Height 6.8 cm RA Width 3.7 cm RA Height 5.8 cm Aorta at Sinotubular Diameter 2.8 cm M-MODE LV Diastolic Diameter MM 8.3 cm 4.2 - 5.9 / 3.9 - 5.3 cm LV Systolic Diameter MM 6.5 cm LV Ejection Fraction MM Teich 44.0 % IVS Diastolic Thickness MM 1.2 cm 0.6 - 1.0 / 0.6 - 0.9 cm IVS Systolic Thickness MM 1.6 cm LVPW Diastolic Thickness MM 1.6 cm 0.6 - 1.0 / 0.6 - 0.9 cm LVPW Systolic Thickness MM 2.2 cm RV Diastolic Diameter MM 2.0 cm Aortic Annulus Diameter 4.9 cm LA Ao Ratio MM 1.1 MV E Point Septal Separation 2.0 cm DOPPLER AV Peak Velocity 172.0 cm/s LVOT Peak Velocity 100.0 cm/s AV Area Cont Eq vti 2.5 cm squared AV Area Cont Eq pk 2.0 cm squared MV Area PHT 5.0 cm squared Mitral E to A Ratio 1.4 MV E' Velocity 16.0 cm/s Mitral E to MV E' Ratio 8.4 Mitral E to LV E' Lateral Ratio 6.7 Mitral E to LV E' Septal Ratio 11.2 TR Peak Velocity 309.0 cm/s TR Peak Gradient 38.1 mmHg TV Peak E Velocity 174.0 cm/s Right Atrial Pressure 3.0 mmHg Pulmonary Artery Systolic Pressu 41.2 mmHg PV Peak Velocity 177.0 cm/s FINDINGS Left Ventricle Possibly normal LV size ejection fraction-55%. Segmental wall motion analysis is difficult. Right Ventricle Appears to be normal size and ejection fraction Right Atrium Not visualized well Left Atrium The left atrium is normal in size. Mitral Valve Thickened mitral valve. Mild mitral annular calcification. Trace mitral valve regurgitation. Aortic Valve No gross abnormalities noted Tricuspid Valve Trace to mild tricuspid valve regurgitation. Pulmonic Valve Mild pulmonary valve regurgitation. Pericardium Normal pericardium without effusion. Aorta Normal ascending aorta dimension. CONCLUSIONS Possibly normal LV size ejection fraction-55%. Segmental wall motion analysis is difficult because of the poor ultrasonic window. Mild pulmonary valve regurgitation. Trace to mild tricuspid valve regurgitation. Trace mitral valve regurgitation. There is no pericardial effusion. Technically difficult study . Dr Doug Dacosta MD FACC (Electronically Signed) Final Date: 02 February 2020 16:59 S
--- NOTE | 2020-02-02 10:40 | P.PN_ITS ---
Subjective Subjective: Interval history: Somewhat confused. Reported hallucinating earlier. Loud stream of consciousness conversation. Knows he is in [place]. Thinks the year is 2001. Vitals/I&O/Wt Last Vital Signs Temp 99.4 F 02/02/20 08:00 Pulse 98 02/02/20 08:00 Resp 18 02/02/20 08:00 BP 82/40 02/02/20 08:00 Pulse Ox 91 02/02/20 08:00 02/01/20 02/02/20 02/02/20 22:59 06:59 14:59 Intake Total 1623 / 1623 800 / 800 Output Total 250 / 250 Balance 1373 / 1373 800 / 800 Weight last 48 hrs Weight 192.867 kg Physical Exam Const: COMMON NORMALS: no acute distress; negative for patient oriented x3 NUTRITIONAL APPEARANCE: obese morbidly obese ORIENTATION/CONSCIOUSNESS: Yes confused HENMT: COMMON NORMALS: oropharynx normal Resp: COMMON NORMALS: normal respiratory effort and clear to auscultation bilaterally AUSCULTATION: clear to auscultation bilaterally Cardio: COMMON NORMALS: regular rhythm, S1 normal heart sound present, S2 normal heart sound present and No murmurs present (Cardio) RHYTHM: regular rhythm HEART SOUNDS: S1 normal heart sound present and S2 normal heart sound present OTHER: Difficult to assess JVD due to body habitus GI: COMMON NORMALS: Normal to inspection, nondistended, normoactive bowel sounds present, Soft to palpation and non-tender PALPATION: Yes Soft to palpation OTHER: Extremely large pannus, with stasis, with also erythema, spots of shallow ulceration, with weeping Extremity: COMMON NORMALS: no joint enlargement GENERAL: Yes edema (Bilateral edema of lower extremities, but also severe edema of very large pannus) Neuro: COMMON NORMALS: moves all extremities; negative for patient oriented x3 Psych: APPEARANCE: Yes unkempt THOUGHT PROCESS: confused INSIGHT: questionable JUDGEMENT: questionable Skin: RASHES: rashes noted (Erythema of very large pannus and in skin folds underneath, with shallow ulcerations which are draining clear fluid. Chronic stasis dermatitis of bilateral lower extremities. Erythema, shallow ulceration of bilateral upper thighs. Possible stage I pressure ulcer on sacrum.) Urinary Catheter Management^: Min: Cath Placed During This Visit: yes Reason for Continuing Indwelling Catheter: Assist healing open wound Urinary Catheter Date of Insertion: 02/01/20 Urinary Catheter Time of Insertion: 22:20 Data : 02/02/20 03:26 02/02/20 03:26 Micro: Microbiology 02/01/20 20:38 Blood Culture - Preliminary Blood SPECIMEN COLLECTED 02/01/20 20:34 Blood Culture - Preliminary Blood SPECIMEN COLLECTED A&P Assessment and plan (1) Hypotension: With acute kidney injury, with antihypertensive medication intake at home. His reports also very high intake of opioids, including hydrocodone 10 mg tablets at least 5 times a day, as well as tramadol 5 times a day. Cannot also exclude that this is not septic shock given possible superimposed cellulitis on top of stasis dermatitis, with leukocytosis, tachycardia. Also history of severe cardiomyopathy, EF 20-25%, although this was back in 2011. Will reassess with echocardiogram if possible, although due to body habitus this may be severely limited. Would be interested to know ejection fraction, any valvular issues. This may be contributing to hypotension. In addition with hypotension, acute kidney injury, encephalopathy, low output heart failure may need to be considered as well. At this time blood cultures have been collected, lactic acid has been normal. Will start on antibiotic for possible sepsis due to cellulitis, for now with vancomycin as well as cefepime due to possible UTI. Allergy to penicillins listed, however, I see that he has had Keflex as an outpatient. Received fluid boluses, however, concern is for underlying CHF, and will initiate norepinephrine at this time. Status: Acute (2) Acute hyperkalemia: Mild improvement. No hemodialysis for now. Appreciate nephrology recommendations. Hold lisinopril. For now is n.p.o. Status: Acute (3) Acute kidney injury: Likely multifactorial, prerenal, with also possible cardiorenal, and fracture from Bactrim and lisinopril. Received fluid challenge. Monitor CROW, renal function. INR down to 1.85. Hold off on further reversal for now, recheck later tonight. Status: Acute (4) Warfarin anticoagulation: Hold Status: Acute (5) Congestive heart failure: TTE. Discussed with his make up operator. Unfortunately he has not been adherent with repeat recommendations for weight loss, lifestyle changes and diet. He is chronically fluid overloaded, and overall would benefit from diuresis once this can be safely accomplished. Blood pressure support if needed recommended with norepinephrine or Eldon-Synephrine. Dobutamine may be considered preferably only at lower infusion rates. For now no signs of acute ischemia. Discussed extensively with his spouse with regards to his condition, as well as overall high risk of mortality given very severe underlying comorbidities. She understands this, and would like to be notified in case things change for much worse and condition becomes terminal so she and family can come and visit him in the hospital. She states the had told her that he had anticipated thing s were really bad when he was being taken to the hospital, considering that he probably may not return home. Status: Acute (6) Anasarca: Once blood pressure, renal function stabilized would benefit from diuresis. At this time monitor renal function, I&O. For now holding off on hemodialysis. Appreciate nephrology recommendations. Status: Acute (7) Venous stasis: Chronic venous stasis dermatitis in both lower extremities, but also in the pannus which is extremely large. Concern for superimposed cellulitis of the pannus with multiple areas of ulceration, with drainage, erythema and swelling. Compression therapy of lower extremities can be continued on chronic basis. Elevate pannus. Treatment of cellulitis as above. Unfortunately has not been adherent with weight loss and lifestyle recommendations. Status: Acute (8) Diabetes mellitus: Monitor BG. NPO for now. Add SSI. So far BGs not elevated. No ketones in urine. Status: Chronic (9) Morbid obesity: Status: Chronic Additional A&P Information Acute encephalopathy: Combination secondary treatment of abnormalities, possible infection, and low output failure may need to be considered. Supportive care at this time. Treatment of underlying etiologies. Attestations Medical Necessity Statement*: Continue admission for assessment of management of shock, suspected septic shock, with underlying suspected severe cardiomyopathy, although difficult to assess due to extreme obesity, acute kidney injury, electrolyte abnormalities, metabolic acidosis, Critical Care Time: 70 minutes critical care time spent on assessment of management of immediately life-threatening issues with hypotension, shock, suspected septic shock, possibly cardiogenic, with acute kidney injury, severe electrolyte normality, coagulopathy, with underlying extreme obesity, chronic congestive heart failure, and other medical issues. Condition and plan discussed with his , as well as his make up operator. Coding Level of Care Code Acute Refrigerator Glazier for Elvira Flowers Diagnoses Hypotension I95.9 Acute hyperkalemia E87.5 Acute kidney injury N17.9 Warfarin anticoagulation Z79.01 Congestive heart failure I50.9 Anasarca R60.1 Venous stasis I87.8 Diabetes mellitus E11.9 Morbid obesity E66.01
--- NOTE | 2020-02-02 12:37 | PC.NURSE ---
AO to name and being in [place], o2 dropped to 88 on RA placed on 2L NC sating 100% at this time, follows commands to raise and lower extremities, pulls at cardiac leads and fidigits occasionally , supine 45 degrees, call light within reach
[2020-02-02 12:54] LABS: Glucose Point of Care 77 mg/dL (70-110)
[2020-02-02 12:54] LABS: Glucose Point of Care 82 mg/dL (70-110)
[2020-02-02 12:54] LABS: Glucose Point of Care 83 mg/dL (70-110)
[2020-02-02 13:58] LABS: Anion Gap 19.9 (5-19); Calcium 8.4 mg/dL (8.5-10.5); Carbon Dioxide 16 mmol/L (22-29); Chloride 107 mmol/L (98-107); Glomerular Filtration Rate 16.7 mL/min (90-130); Glucose 94 mg/dL (65-115); Osmolality Calculated 284 mOsm/kg (285-295); Potassium 5.9 mmol/L (3.5-5.1); Sodium 137 mmol/L (136-145)
[2020-02-02 14:18] LABS: Blood Urea Nitrogen 94 mg/dL (8-23)
--- NOTE | 2020-02-02 15:00 | PC.NURSE ---
BEHAVIOR PT YELLING LOUDLY, DEMANDING TO LEAVE, SWATTING AT STAFF & THREATENING TO POP YOU IN THE LIP. PULLED OFF TELE PATCHES & ATTEMPTS TO HIT STAFF. UNABLE TO REPOSITION EFFECTIVELY D/T BODY HABITUS. BLE WEEPING, ALOE VESTA APPLIED & ABSORBENT PADS PLACED UNDER ABDOMINAL APRON. DR NEVAREZ ON UNIT & GAVE ORDERS ORDERED. SITTER AT BEDSIDE.
--- NOTE | 2020-02-02 15:34 | PC.NURSE ---
pt frequently pulls of VS leads, fidigiting, reported seeing snake in room, talking to self, swatting at staff and argumentive, constanlty moans and groans
[2020-02-02] MEDS: haloperidol inj 5 mg/mL INJ 1 mL 1 MG IM (17:06)
[2020-02-02 17:18] LABS: INR 1.89 (0.8-1.2)
[2020-02-02] MEDS: morphine 4 mg/mL SDV 1 mL IVP ×2 (17:35→22:01)
[2020-02-02] MEDS: LORazepam 2 mg/mL INJ 1 mL IVP (17:37)
[2020-02-02] MEDS: nystatin powder 15 gm Btl 1 APPLIC TOPICAL (18:10)
[2020-02-02 18:22] LABS: Glucose Point of Care 94 mg/dL (70-110)
[2020-02-02] MEDS: OLANZapine 10 mg VIAL IM (19:33)
--- NOTE | 2020-02-02 19:44 | PC.NURSE ---
1899 Received report from DELMY Spring. Patient is currently very anxious and pulling at lines. Sitter at bedside. Bed in lowest position, call light in place. Will continue to monitor. 1914 Patient pulled out IV. Catheter intact. Bandage applied. Patient is increasingly anxious. Dr. Millan notified. Ordered 10 mg Zyprexa IM x 1. Will continue to monitor.
[2020-02-02] MEDS: haloperidol inj 5 mg/mL INJ 1 mL 2 MG IM (21:36)
--- NOTE | 2020-02-02 22:11 | PC.NURSE ---
2114 Patient increasingly more agitated. Reaching for things that aren't there. Pulling at lines. Swatting at the air. Mumbling words that are incomprehensible. Dr. Millan notified and he ordered a one time dose of Haldol 2 mg IM to be given now.
--- NOTE | 2020-02-02 22:42 | ECG_ITS ---
[facility] Test Date: 2020-02-02 Pat Name: Jacob Ibarra Department: Room: ICU07 Gender: Male Laboratory Specialist: : [id number] Requested By: Wes Millan Order Number: [id number] Alfredo MD: Doug Dacosta M.D. Measurements Intervals [place] Rate: 101 P: WI: -1 QRS: -40 QRSD: 92 T: 118 QT: 336 QTc: 435 Interpretive Statements ATRIAL FIBRILLATION WITH RAPID VENTRICULAR RESPONSE WITH ABERRANT CONDUCTION OR VENTRICULAR PREMATURE COMPLEXES LOW QRS VOLTAGE IN PRECORDIAL LEADS [QRS DEFLECTION < 1.0 mV IN CHEST LEADS] INFERIOR MYOCARDIAL INFARCTION [40+ ms Q WAVE AND/OR ST/T ABNORMALITY IN II/aVF], PROBABLY OLD ANTEROSEPTAL MYOCARDIAL INFARCTION [40+ ms Q WAVE IN V1-V4], PROBABLY OLD Compared to ECG 02/02/2020 02:30:11 Aberrant conduction of supraventricular beat(s) now present Ventricular premature complex(es) now present Myocardial infarct finding still present Electronically Signed On 02-03-2020 14:02:15 CDT by Doug Dacosta M.D. [id number]
--- NOTE | 2020-02-02 22:42 | PC.NURSE ---
Patient is having some tachycardia. Heart rate is getting up to 130-140 for a short time and then going back to 80-100. Dr. Millan notified. Ordered EKG and repeat vital signs.
[2020-02-02 23:09] LABS: Glucose Point of Care 99 mg/dL (70-110)
[2020-02-03] VITALS (42 sets, daily range): BP systolic 71–148; BP diastolic 44–123; PULSE 80–147; RESP 14–29; TEMP 36.8–37.7; O2SAT 71–100
[2020-02-03] MEDS: morphine 4 mg/mL SDV 1 mL IVP ×2 (01:41→05:57)
--- NOTE | 2020-02-03 02:14 | PC.NURSE ---
0210 Patient is increasingly agitated. Continuing to have tachycardia. HR sustaining 110-140. Dr. Millan notified. Ordered 1 mg of Ativan times one. Will continue to monitor.
[2020-02-03] MEDS: LORazepam 2 mg/mL INJ 1 mL 1 MG IVP ×2 (02:25→18:11)
[2020-02-03 04:09] LABS: Basophils # 0.1 10^3/uL (0.0-0.1); Basophils % 0.8 %; Eosinophils # 0.5 10^3/uL (0.0-0.8); Hematocrit 23.5 % (42.0-52.0); Hemoglobin 6.7 g/dL (11.7-16.6); Lymphocytes # 0.6 10^3/uL (0.8-4.8); Lymphocytes % 5.2 %; Mean Corpuscular HGB Conc 28.5 g/dL (30.0-36.0); Mean Corpuscular Hemoglobin 21.6 pg (28.0-34.0); Mean Corpuscular Volume 75.8 fL (80-94); Mean Platelet Volume 10.4 fL (7.4-10.4); Monocytes # 1.5 10^3/uL (0.2-0.9); Monocytes % 12.4 %; Neutrophils # 9.4 10^3/uL (1.8-7.7); Nucleated Red Blood Cells % 0 %; Platelet Count 396 10^3/cmm (130-400); Red Cell Distribution Width 22.1 % (12.1-15.1); White Blood Count 12.2 10^3/uL (4.0-10.0)
[2020-02-03 04:19] LABS: Alanine Aminotransferase 14 U/L (0-41); Albumin Level 2.7 g/dL (3.5-5.2); Alkaline Phosphatase 110 IU/L (40-130); Anion Gap 18.3 (5-19); Aspartate Amino Transferase 30 U/L (0-40); Blood Urea Nitrogen 79 mg/dL (8-23); Calcium 8.7 mg/dL (8.5-10.5); Carbon Dioxide 17 mmol/L (22-29); Chloride 111 mmol/L (98-107); Globulin 3.6 g/dL (1.3-4.6); Glucose 78 mg/dL (65-115); Osmolality Calculated 291 mOsm/kg (285-295); Potassium 5.3 mmol/L (3.5-5.1); Sodium 141 mmol/L (136-145); Total Bilirubin 0.6 mg/dL (0.15-1.2); Total Protein 6.3 g/dL (6.6-8.7)
[2020-02-03] MEDS: haloperidol inj 5 mg/mL INJ 1 mL 2 MG IM ×2 (04:56→22:55)
--- NOTE | 2020-02-03 05:05 | PC.NURSE ---
Patient is getting increasingly. Reaching for things that aren't there. Swinging fists at nursing staff. Attempted to bite DELMY Dolan. Patient is not able to orient to person, place, or time. Dr. Millan notified. Ordered 5 mg Zyprexa IM to be given once now and repeat Hemoglobin and hematocrit.
--- NOTE | 2020-02-03 05:10 | PC.NURSE ---
Patient's hemoglobin is 6.7. Dr. Millan notified and ordered repeat of hemoglobin and hematocrit lab draw.
[2020-02-03] MEDS: OLANZapine 10 mg VIAL 5 MG IM (05:23)
[2020-02-03 05:52] LABS: Glucose Point of Care 80 mg/dL (70-110)
[2020-02-03 06:01] LABS: Hematocrit 23.8 % (42.0-52.0); Hemoglobin 6.8 g/dL (11.7-16.6)
--- NOTE | 2020-02-03 06:43 | PC.NURSE ---
Repeat H/H was 6.[address] Millan notified and he ordered 1 unit of RBC to be transfused now.
[2020-02-03] MEDS: sodium chloride 0.9% 1,000 ML 100 ML IV ×2 (07:32→16:47)
--- NOTE | 2020-02-03 08:00 | PC.NURSE ---
PT HALLUCINATING, ARGUMENTATIVE, THREATENS TO BITE/HIT STAFF. HR AFIB W/ RVR 130'S, NEW ORDERS RECEIVED, DR NEVAREZ NOTIFIED PT UPDATED, SITTER AT BEDSIDE
--- NOTE | 2020-02-03 08:43 | PC.NURSE ---
dr. benson in will increase m.s. for withdrawal
[2020-02-03] MEDS: heparin 5,000 unit/mL INJ 1 mL 5000 UNIT SUBCUT ×2 (08:51→15:40)
--- NOTE | 2020-02-03 08:54 | PM.PN ---
Subjective Subjective: Interval history: He had a restless night. Confused currently, but communicates pain in his legs. Wants to keep them covered. His states he has been progressively confused over 2 weeks, sometimes talking in his sleep, sometimes with some tremor or jerky movement. Vitals/I&O/Wt Last Vital Signs Temp 99.5 F 02/03/20 05:00 Pulse 135 H 02/03/20 06:00 Resp 19 H 02/03/20 06:00 BP 136/61 02/03/20 06:00 Pulse Ox 96 02/03/20 05:57 02/02/20 02/03/20 02/03/20 22:59 06:59 14:59 Intake Total 1103.317 / 3553.317 1052.133 / 4605.450 Output Total 2200 / 2200 1400 / 3600 Balance -1096.683 / 1353.317 -347.867 / 1005.450 Weight last 48 hrs Weight 192.867 kg Physical Exam Const: COMMON NORMALS: no acute distress; negative for patient oriented x3 NUTRITIONAL APPEARANCE: obese morbidly obese ORIENTATION/CONSCIOUSNESS: Yes confused HENMT: COMMON NORMALS: oropharynx normal Resp: COMMON NORMALS: normal respiratory effort and clear to auscultation bilaterally AUSCULTATION: clear to auscultation bilaterally Cardio: COMMON NORMALS: regular rhythm, S1 normal heart sound present, S2 normal heart sound present and No murmurs present (Cardio) RHYTHM: regular rhythm HEART SOUNDS: S1 normal heart sound present and S2 normal heart sound present OTHER: Difficult to assess JVD due to body habitus GI: COMMON NORMALS: Normal to inspection, nondistended, normoactive bowel sounds present, Soft to palpation and non-tender PALPATION: Yes Soft to palpation OTHER: Extremely large pannus, with stasis, with also erythema, spots of shallow ulceration, with less weeping today Extremity: COMMON NORMALS: no joint enlargement GENERAL: Yes edema (Bilateral edema of lower extremities, but also severe edema of very large pannus) Neuro: COMMON NORMALS: moves all extremities; negative for patient oriented x3 Psych: APPEARANCE: Yes unkempt THOUGHT PROCESS: confused INSIGHT: questionable JUDGEMENT: questionable Skin: RASHES: rashes noted (Erythema of very large pannus and in skin folds underneath, with shallow ulcerations which are draining clear fluid. Chronic stasis dermatitis of bilateral lower extremities. Erythema, shallow ulceration of bilateral upper thighs. Possible stage I pressure ulcer on sacrum.) Urinary Catheter Management^: Min: Cath Placed During This Visit: yes Reason for Continuing Indwelling Catheter: Accurate Measurement of Urinary Output in Critically Ill Patients Urinary Catheter Date of Insertion: 02/01/20 Urinary Catheter Time of Insertion: 22:20 Data : 02/03/20 05:45 02/03/20 03:16 Micro: Microbiology 02/01/20 20:38 Blood Culture - Preliminary Blood NEGATIVE TO DATE 02/01/20 20:34 Blood Culture - Preliminary Blood NEGATIVE TO DATE A&P Assessment and plan (1) Hypotension: Was imoroving yesterday and was weaned down from 8mcg levophed. This morning tachycardia - AFib w RVR in 130s-140s. BP soft. Started on Amio and BP decreased w bolus. Give 500mL bolus as his urine output has picked up. Restart levophed if needed. Cannot also exclude that this is not septic shock, alhtough currently this is less likely. Technically limited TTE, but EF appears better at perhaps 55%. History of severe cardiomyopathy, EF 20-25%, although this was back in 2011. Status: Acute (2) UTI (urinary tract infection): GNR. Possible sepsis w leukocytosis, tachycardia. Cont cefepime. Status: Acute (3) Encephalopathy acute: Combination secondary treatment of abnormalities, possible infection, and low output failure may need to be considered. Supportive care at this time. Treatment of underlying etiologies. Withdrawal from opioids - per discussion sometimes takes even more than 50mg of hydrocodone in a day. Increase morphine to 6mg Q3h. 1:1. Antipsychotic for hallucinations, agitation. Ativan as needed for anxiety. Unfortunately we've been unable to restart his psychiatric medications. NPO for now. Status: Acute (4) Cellulitis: Pannus. Cont Vancomycn. Chronic chepe stasis dermatitis legs. Status: Acute (5) Acute hyperkalemia: Improving. No hemodialysis. Appreciate nephrology recommendations. Hold lisinopril. For now is n.p.o. Status: Acute (6) Acute kidney injury: Improving. Likely multifactorial, prerenal, with also possible cardiorenal, and fracture from Bactrim and lisinopril. Received fluid challenge. Monitor CROW, renal function. INR down to 1.5. Hold off on further reversal. Status: Acute (7) Warfarin anticoagulation: Hold Status: Acute (8) Congestive heart failure: TTE of poor quality, but appears EF is better than previously, currently close to normal. Discussed with his . No signs of acute ischemia so far. With significant fluid overall, once blood pressure and renal function allow would benefit from diuresis. Status: Acute Qualifiers: Heart failure chronicity: acute on chronic Heart failure type: unspecified Qualified Code(s): I50.9 - Heart failure, unspecified (9) Anasarca: Once blood pressure, renal function stabilized would benefit from diuresis. At this time monitor renal function, I&O. For now holding off on hemodialysis. Appreciate nephrology recommendations. Status: Acute (10) Venous stasis: Chronic venous stasis dermatitis in both lower extremities, but also in the pannus which is extremely large. Concern for superimposed cellulitis of the pannus with multiple areas of ulceration, with drainage, erythema and swelling. Compression therapy of lower extremities can be continued on chronic basis. Elevate pannus. Treatment of cellulitis as above. Unfortunately has not been adherent with weight loss and lifestyle recommendations. Status: Acute (11) Diabetes mellitus: Monitor BG. NPO for now. Add SSI. So far BGs not elevated. No ketones in urine. Status: Chronic (12) Morbid obesity: Status: Chronic Additional A&P Information Microcytic anemia: 1 unit of PBC transfusion is ordered, although had to be held before starting as his temperature is borderline at 99.5. Will observe for now, transfuse if he is not spiking a fever. Per discussion with his she states that he has history of iron deficiency anemia which was suspected secondary to slow GI bleed, and Hemoccult was previously ordered on outpatient basis but he had declined to perform it. Never had a colonoscopy. Attestations Medical Necessity Statement*: Continue admission versus management of hypotension, A. fib with RVR, UTI, cellulitis, possible sepsis, septic shock, acute kidney injury, hyperkalemia, acute encephalopathy with suspected opiate withdrawal, with underlying morbid obesity. Critical Care Time: 45 minutes critical care time spent on immediately life-threatening issues with assessment and management of hypotension, tachyarrhythmia, antibiotics for suspected sepsis, acute encephalopathy and suspected drug withdrawal. Discussed his condition, plan of treatment and prognosis with his . Coding Level of Care Code Acute Buffer Operator for Teeg Fwd Exam Comprehensive Diagnoses Hypotension I95.9 UTI (urinary tract infection) N39.0 Encephalopathy acute G93.40 Cellulitis L03.90 Acute hyperkalemia E87.5 Acute kidney injury N17.9 Warfarin anticoagulation Z79.01 Congestive heart failure I50.9 Heart failure chronicity: acute on chronic Heart failure type: unspecified Anasarca R60.1 Venous stasis I87.8 Diabetes mellitus E11.9 Morbid obesity E66.01
[2020-02-03] MEDS: pantoprazole 40 mg SDV IVP (09:02)
[2020-02-03] MEDS: sodium chloride 0.9% (100 ml) 100 ML 50 ML (09:42)
--- NOTE | 2020-02-03 10:52 | P.PN_ITS ---
Subjective Subjective: Interval history: Restless, confused, delirious. No overt edema and no SOB, no other Sx of hyperVol. Good urine output. Hemodynamic soft and intermittently on pressors Vitals/I&O/Wt Last Vital Signs Temp 99.3 F 02/03/20 10:39 Pulse 100 02/03/20 10:39 Resp 20 H 02/03/20 10:39 BP 71/50 02/03/20 09:00 Pulse Ox 100 02/03/20 10:39 02/02/20 02/03/20 02/03/20 22:59 06:59 14:59 Intake Total 1103.317 / 3553.317 1052.133 / 4605.450 Output Total 2200 / 2200 1400 / 3600 600 / 600 Balance -1096.683 / 1353.317 -347.867 / 1005.450 -600 / -600 Weight last 48 hrs Weight 192.867 kg Physical Exam Const: COMMON NORMALS: no acute distress GENERAL APPEARANCE: comfortable NUTRITIONAL APPEARANCE: obese Chest: COMMONS NORMALS: normal inspection of the chest and normal palpation of entire chest wall Resp: COMMON NORMALS: normal respiratory effort, No retractions, No use of accessory muscles and clear to auscultation bilaterally AUSCULTATION: clear to auscultation bilaterally Cardio: COMMON NORMALS: S1 normal heart sound present and S2 normal heart sound present RHYTHM: abnormal rhythm HEART SOUNDS: S1 normal heart sound present and S2 normal heart sound present Extremity: GENERAL: Yes normal exam except as noted (chronic global anasarca ) Urinary Catheter Management^: Min: Cath Placed During This Visit: yes Reason for Continuing Indwelling Catheter: Accurate Measurement of Urinary Output in Critically Ill Patients Urinary Catheter Date of Insertion: 02/01/20 Urinary Catheter Time of Insertion: 22:20 Data : 02/03/20 05:45 02/03/20 03:16 Micro: Microbiology 02/01/20 22:28 Urine Culture - Preliminary Urine,Clean Catch Gram Negative Rods 02/01/20 20:38 Blood Culture - Preliminary Blood NEGATIVE TO DATE 02/01/20 20:34 Blood Culture - Preliminary Blood NEGATIVE TO DATE A&P Additional A&P Information 1. ALEYDA - Creatinine coming down nicely now and excellent urine output - likely to be multifactorial, from a combination of hypotension, ACEi/NSAID interference with glmoerular hemodynamics, possible Bactrim effect (? stopped); FE Na 0.3% i.e predominantly pre-renal low flow state - Min placed with 325mL, ie this is not obstruction - Receiving liberal ivf - Renal sono looks good - Very high risk of needing dialysis but no critical indication at this time - Avoid the usuals - dose meds for eGFR < 15 2. Lytes - HyperK improving to non critical levels with conservative therapy - AGMA likely to be due uremia, LA ok - other lytes non critical - Repeat BMP this aftenoon 3. Leukocytosis - sepsis vs reactive - sepsis screen sent; Abx per primary team 4. AMS/delerium likely uremia and possible narcotic withdrawal 5. Hypotension - Septic, hypovolemic and possible cardiogenic contribution - on ivf at 100ml/hr and prn pressors - echo noted with EF 55% 6. 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
[2020-02-03] MEDS: morphine 4 mg/mL SDV 1 mL 6 MG IVP ×4 (11:10→21:51)
[2020-02-03 11:51] LABS: Glucose Point of Care 105 mg/dL (70-110)
--- NOTE | 2020-02-03 12:06 | PC.NURSE ---
RESTING QUIETER AT TIMES, AFTER THE MORPHINE
[2020-02-03] MEDS: nystatin powder 15 gm Btl 1 APPLIC TOPICAL ×2 (12:08→16:48)
--- NOTE | 2020-02-03 14:55 | PC.NURSE ---
skin care to upper thigs wher there were open areas. optifoan applied
[2020-02-03 16:52] LABS: Hematocrit 26.4 % (42.0-52.0); Hemoglobin 7.3 g/dL (11.7-16.6)
[2020-02-03 16:56] LABS: Glucose Point of Care 127 mg/dL (70-110)
--- NOTE | 2020-02-03 18:39 | PC.NURSE ---
WOKE UP IN VIOLENT STATE, SWINGING AT SITTER. TEARING LINES OUT. ATIVAN GIVEN AFTER ATTEMPTS TO CALM PT.
--- NOTE | 2020-02-03 19:35 | PC.NURSE ---
1899 Received report from DELMY Godoy. Patient is currently very restless and pulling at telemetry wires and IV lines. Attempt to redirect and reorient. Per report patient has been restless off and on during the day. Hemoglobin was redrawn this afternoon and was 7.3. Dr. Brennan notified and ordered 1 unit of RBC to be transfused now. Sitter at bedside. Bed in lowest position. Call light in reach. Will continue to monitor.
[2020-02-03 19:50] LABS: Glucose Point of Care 88 mg/dL (70-110)
[2020-02-03] MEDS: sodium chloride 0.9% (100 ml) 100 ML 25 ML (20:56)
--- NOTE | 2020-02-03 21:03 | PC.NURSE ---
Adjusted amiodarone infusion on SEP to represent titration to 0.5mg/min at 1440 on 02/03/20 per report given by DELMY Godoy. Patient will complete 18 hour infusion of Amiodarone at 0840 on 02/04/20.
[2020-02-03 23:27] LABS: Glucose Point of Care 111 mg/dL (70-110)
[2020-02-04] VITALS (23 sets, daily range): BP systolic 90–141; BP diastolic 52–93; PULSE 83–144; RESP 16–36; TEMP 37.6; O2SAT 81–100
[2020-02-04] MEDS: heparin 5,000 unit/mL INJ 1 mL 5000 UNIT SUBCUT ×3 (00:05→15:44)
[2020-02-04] MEDS: LORazepam 2 mg/mL INJ 1 mL 1 MG IVP ×3 (00:05→20:11)
[2020-02-04] MEDS: morphine 4 mg/mL SDV 1 mL 6 MG IVP ×3 (01:04→07:56)
--- NOTE | 2020-02-04 01:43 | PC.NURSE ---
0000 Patient had midnight Hemoglobin and hematocrit ordered to be collected after blood transfusion. Patient's blood did not finish until 2330. Dr. Millan ordered lab to be drawn with morning labs.
[2020-02-04] MEDS: metoprolol tartrate 1 mg/1 mL SDV 5 mL 5 MG IV ×2 (01:59→08:12)
--- NOTE | 2020-02-04 02:08 | PC.NURSE ---
0130 Patient is very agitated and having sustained tachycardia. Attempted to redirect. Called Dr. Millan and he ordered 5 mg IVP Metoprolol.
[2020-02-04 03:57] LABS: Basophils # 0.2 10^3/uL (0.0-0.1); Eosinophils # 0.8 10^3/uL (0.0-0.8); Eosinophils % 5.4 %; Hematocrit 29.1 % (42.0-52.0); Hemoglobin 8.3 g/dL (11.7-16.6); Lymphocytes # 0.7 10^3/uL (0.8-4.8); Lymphocytes % 4.8 %; Mean Corpuscular HGB Conc 28.5 g/dL (30.0-36.0); Mean Corpuscular Hemoglobin 22.1 pg (28.0-34.0); Mean Corpuscular Volume 77.6 fL (80-94); Mean Platelet Volume 10.5 fL (7.4-10.4); Monocytes # 1.9 10^3/uL (0.2-0.9); Monocytes % 12.5 %; Neutrophils # 11.4 10^3/uL (1.8-7.7); Neutrophils % 75.5 %; Nucleated Red Blood Cells % 0 %; Platelet Count 421 10^3/cmm (130-400); Red Blood Count 3.75 10^6/uL (4.1-5.3); Red Cell Distribution Width 22.5 % (12.1-15.1); White Blood Count 15.1 10^3/uL (4.0-10.0)
[2020-02-04 04:07] LABS: INR 1.38 (0.8-1.2)
[2020-02-04 04:22] LABS: Alanine Aminotransferase 14 U/L (0-41); Albumin Level 2.9 g/dL (3.5-5.2); Alkaline Phosphatase 118 IU/L (40-130); Anion Gap 22.7 (5-19); Aspartate Amino Transferase 26 U/L (0-40); Blood Urea Nitrogen 55 mg/dL (8-23); Carbon Dioxide 15 mmol/L (22-29); Chloride 113 mmol/L (98-107); Glomerular Filtration Rate 40.9 mL/min (90-130); Glucose 136 mg/dL (65-115); Osmolality Calculated 301 mOsm/kg (285-295); Potassium 5.7 mmol/L (3.5-5.1); Sodium 145 mmol/L (136-145); Total Bilirubin 0.8 mg/dL (0.15-1.2); Total Protein 6.9 g/dL (6.6-8.7)
[2020-02-04 06:40] LABS: Glucose Point of Care 155 mg/dL (70-110)
--- NOTE | 2020-02-04 07:32 | XRR_ITS ---
PROCEDURE INFORMATION: Exam: XR Chest, 1 View Exam date and time: 02/04/2020 7:33 AM Age: 64 years old Clinical indication: Other: Hypoxia TECHNIQUE: Imaging protocol: XR of the chest Views: Frontal portable upright view of the chest. COMPARISON: CR XR chest 1V portable [id number] 02/01/2020 8:23 PM FINDINGS: Tubes, catheters and devices: EKG leads are present overlying the chest. Lungs: Stable left basilar pulmonary subsegmental atelectasis. The lungs are otherwise peripherally clear bilaterally. The pulmonary vasculature is normal. Pleural space: No definite pleural effusion. No pneumothorax. Heart/Mediastinum: Stable mild cardiomegaly. Mediastinum: Stable. Vasculature: Mild aortic arch atherosclerotic calcification without ectasia. Bones/joints: Stable. XR/XR chest 1V portable [id number] IMPRESSION: Stable left basilar pulmonary subsegmental atelectasis.
[2020-02-04 08:04] LABS: Glucose Point of Care 154 mg/dL (70-110)
[2020-02-04] MEDS: pantoprazole 40 mg SDV IVP (08:12)
--- NOTE | 2020-02-04 08:47 | P.PN_ITS ---
Vitals/I&O/Wt Last Vital Signs Temp 99.9 F H 02/03/20 23:38 Pulse 130 H 02/04/20 06:00 Resp 24 H 02/04/20 07:56 BP 121/64 02/04/20 06:00 Pulse Ox 100 02/04/20 07:56 02/03/20 02/04/20 02/04/20 22:59 06:59 14:59 Intake Total 1475 / 1932 350 / 2282 Output Total 500 / 2500 2500 / 5000 Balance 975 / -568 -2150 / -2718 Physical Exam Const: COMMON NORMALS: no acute distress and alert (Today is much more appropriate. With better insight into his condition. Answering questions. Is able to relate answers to prior discussions.) GENERAL APPEARANCE: cooperative and comfortable NUTRITIONAL APPEARANCE: obese morbidly obese ORIENTATION/CONSCIOUSNESS: not confused HENMT: COMMON NORMALS: oropharynx normal Resp: COMMON NORMALS: normal respiratory effort and clear to auscultation bilaterally AUSCULTATION: clear to auscultation bilaterally Cardio: COMMON NORMALS: regular rhythm, S1 normal heart sound present, S2 normal heart sound present and No murmurs present (Cardio) RHYTHM: regular rhythm HEART SOUNDS: S1 normal heart sound present and S2 normal heart sound present OTHER: Difficult to assess JVD due to body habitus GI: COMMON NORMALS: Normal to inspection, nondistended, normoactive bowel sounds present, Soft to palpation and non-tender PALPATION: Yes Soft to palpation OTHER: Extremely large pannus. Extremity: COMMON NORMALS: no joint enlargement GENERAL: Yes edema (Bilateral edema of lower extremities, but also severe edema of very large pannus) Neuro: COMMON NORMALS: moves all extremities SENSORIUM/ORIENTATION: Yes alert (Today is much more appropriate. With better insight into his condition. Answering questions. Is able to relate answers to prior discussions.) Psych: APPEARANCE: Yes unkempt THOUGHT PROCESS: confused INSIGHT: questionable JUDGEMENT: questionable Skin: RASHES: rashes noted With urine output there is significant improvement in weeping of the skin of the pannus, with drying of the anterior distal surface of the pannus. Erythema is improving significantly. Shallow ulcerations at the distal end and underside. Urinary Catheter Management^: Min: Cath Placed During This Visit: yes Reason for Continuing Indwelling Catheter: Accurate Measurement of Urinary Output in Critically Ill Patients Urinary Catheter Date of Insertion: 02/01/20 Urinary Catheter Time of Insertion: 22:20 Data : 02/04/20 03:25 02/04/20 03:25 Micro: Microbiology 02/01/20 22:28 Urine Culture - Final Urine,Clean Catch Pseudomonas aeruginosa 02/04/20 03:45 Occult Blood (FIT) - Final Stool - Stool Aspirate A&P Assessment and plan (1) UTI (urinary tract infection): GNR. Possible sepsis w leukocytosis, tachycardia. Cont cefepime. Status: Acute (2) Cellulitis: Pannus. Cont Vancomycn. Chronic chepe stasis dermatitis legs. Will request arterial dopplers. If perfusion is adequate, consider compression dressings. Follow up with PCP regarding weight loss options. Status: Acute (3) Acute hyperkalemia: Stabilized. Low potassium diet. No hemodialysis so far. Appreciate nephrology recommendations. Hold lisinopril. For now is n.p.o. Status: Acute (4) Acute kidney injury: Improving. Likely multifactorial, prerenal, with also possible cardiorenal, and from Bactrim and lisinopril. Received fluid challenge. Monitor CROW, renal function. INR decreasing. If potassium improves, and no further plans for any procedures, consider restarting warfarin. Status: Acute (5) Encephalopathy acute: This is resolving well currently. He is much more appropriate, lucid and cooperative today. Resume oral diet. Clear liquids to start, if does well will advance. Resume home pain meds. Psych meds and other home meds need to be reconciled and resumed. Continue treatment of infection. 1:1. If continues to improve may DC. Antipsychotic for hallucinations, agitation. Ativan as needed for anxiety. Status: Acute (6) Hypotension: Resolved. Weaned down from levophed. This morning tachycardia - AFib w RVR in 120s-130s. Restart levophed if needed. Treat sepsis. Technically limited TTE, but EF appears better at perhaps 55%. History of severe cardiomyopathy, EF 20-25%, although this was back in 2011. Status: Acute (7) Warfarin anticoagulation: Hold. May be able to resume soon. Status: Acute (8) Congestive heart failure: TTE of poor quality, but appears EF is better than previously, currently close to normal. Discussed with his . No signs of acute ischemia so far. With significant fluid overall, once blood pressure and renal function allow would benefit from diuresis. Status: Acute Qualifiers: Heart failure chronicity: acute on chronic Heart failure type: unspecified Qualified Code(s): I50.9 - Heart failure, unspecified (9) Anasarca: Once blood pressure, renal function stabilized would benefit from diuresis. At this time monitor renal function, I&O. For now holding off on hemodialysis. Appreciate nephrology recommendations. Status: Acute (10) Venous stasis: Chronic venous stasis dermatitis in both lower extremities, but also in the pannus which is extremely large. Concern for superimposed cellulitis of the pannus with multiple areas of ulceration, with drainage, erythema and swelling. Compression therapy of lower extremities can be continued on chronic basis. Elevate pannus. Treatment of cellulitis as above. Unfortunately has not been adherent with weight loss and lifestyle recommendations. Status: Acute (11) Diabetes mellitus: Monitor BG. NPO for now. Add SSI. So far BGs not elevated. No ketones in urine. Status: Chronic (12) Morbid obesity: Status: Chronic (13) Atrial fibrillation: A. fib with RVR. Heart rates still in the 120s-130s. Continues on amiodarone drip. Initially started on IV metoprolol, but resuming diet currently, so we will resume oral metoprolol, for now 75 mg twice daily. Adjust as necessary. At home appears to be taking 100. Continue treatment of underlying conditions. Status: Acute Additional A&P Information Microcytic anemia: Additional 1 unit PBC transfusion on 02/02 due to hemoglobin 7.3. Responded well. Per discussion with his she states that he has history of iron deficiency anemia which was suspected secondary to slow GI bleed, and Hemoccult was previously ordered on outpatient basis but he had declined to perform it. Never had a colonoscopy. Low-grade fever: Continues running low-grade temp 99.5. Perhaps related to urinary tract infection or cellulitis. No sign of obstruction on renal ultrasound. Denies any shortness of breath, has had no cough. No headache. Will assess chest x-ray. Attestations Medical Necessity Statement*: Continue admission for assessment of management of sepsis, UTI, cellulitis, improving kidney injury, with hyperkalemia, metabolic and withdrawal encephalopathy, A. fib with RVR, anasarca in the setting of morbid obesity. Critical Care Time: 40 minutes critical care time spent on assessment management of immediately life-threatening conditions including severe sepsis, antibiotic management, persistent atrial fibrillation with RVR, acute encephalopathy with drug withdrawal, together with acute kidney injury, hyperkalemia, in the setting of morbid obesity. Discussed his condition and treatment plan with his . Coding Level of Care Code Acute Library Serials Assistant for [facility] Fwd Exam Comprehensive Diagnoses UTI (urinary tract infection) N39.0 Cellulitis L03.90 Acute hyperkalemia E87.5 Acute kidney injury N17.9 Encephalopathy acute G93.40 Hypotension I95.9 Warfarin anticoagulation Z79.01 Congestive heart failure I50.9 Heart failure chronicity: acute on chronic Heart failure type: unspecified Anasarca R60.1 Venous stasis I87.8 Diabetes mellitus E11.9 Morbid obesity E66.01 Atrial fibrillation I48.91
[2020-02-04] MEDS: metoprolol tartrate 50 mg Tablet 75 MG PO ×2 (10:01→17:17)
--- NOTE | 2020-02-04 10:43 | PM.PN ---
Subjective Subjective: Interval history: Much more awake, jovial, joking, comfortable. No overt edema and no SOB, no other Sx of hyperVol. Good urine output. Hemodynamic soft and intermittently on pressors Vitals/I&O/Wt Last Vital Signs Temp 99.9 F H 02/03/20 23:38 Pulse 115 H 02/04/20 09:00 Resp 23 H 02/04/20 09:00 BP 100/78 02/04/20 09:00 Pulse Ox 96 02/04/20 09:00 02/03/20 02/04/20 02/04/20 22:59 06:59 14:59 Intake Total 1475 / 1932 350 / 2282 300 / 300 Output Total 500 / 2500 2500 / 5000 Balance 975 / -568 -2150 / -2718 300 / 300 Physical Exam Const: COMMON NORMALS: no acute distress GENERAL APPEARANCE: comfortable NUTRITIONAL APPEARANCE: obese Chest: COMMONS NORMALS: normal inspection of the chest and normal palpation of entire chest wall Resp: COMMON NORMALS: normal respiratory effort, No retractions, No use of accessory muscles and clear to auscultation bilaterally AUSCULTATION: clear to auscultation bilaterally Cardio: COMMON NORMALS: S1 normal heart sound present and S2 normal heart sound present RHYTHM: abnormal rhythm HEART SOUNDS: S1 normal heart sound present and S2 normal heart sound present Extremity: GENERAL: Yes normal exam except as noted (chronic global anasarca ) Urinary Catheter Management^: Min: Cath Placed During This Visit: yes Reason for Continuing Indwelling Catheter: Accurate Measurement of Urinary Output in Critically Ill Patients Urinary Catheter Date of Insertion: 02/01/20 Urinary Catheter Time of Insertion: 22:20 Data : 02/04/20 03:25 02/04/20 03:25 Micro: Microbiology 02/01/20 22:28 Urine Culture - Final Urine,Clean Catch Pseudomonas aeruginosa 02/04/20 03:45 Occult Blood (FIT) - Final Stool - Stool Aspirate A&P Additional A&P Information 1. ALEYDA - Creatinine coming down nicely now and excellent urine output - likely to be multifactorial, from a combination of hypotension, ACEi/NSAID interference with glmoerular hemodynamics, possible Bactrim effect (? stopped); FE Na 0.3% i.e predominantly pre-renal low flow state - Min placed with 325mL, ie this is not obstruction; leave Min for now - ivf stopped - Renal sono looks good - Avoid the usuals - dose meds for eGFR < 15 2. Lytes - HyperK; K drifting up a little; will give oral bicarb and await renal recovery; defer Kayexalate; given body habitus I'd like to avoid diarrhea as much as possible - AGMA getting worse. Will resend LA, ketones - other lytes non critical - Repeat BMP this aftenoon 3. Leukocytosis - sepsis vs reactive - sepsis screen sent; Abx per primary team; on Cefepime and Vanco - Pseudomonas in urine, ? colonization 4. AMS/delerium likely uremia and possible narcotic withdrawal 5. Hypotension - Septic, hypovolemic - Recovering, off pressrs - echo noted with EF 55% 6. Anemia s/p PRBCs 7. Delirium recovered; likely opiate withdrawal - Case dw/ Bedside RNs in ER and ICU - Interview and Exam performed via telemed Jacob Betancourt MD [facility] [phone] Attestations Medical Necessity Statement*: eval for ALEYDA Coding Level of Care Code Acute Bottom Presser for Teeg Lionel
--- NOTE | 2020-02-04 10:45 | PC.SOCIAL ---
IMM Page 2 of [facility] explained to patient's spouse Jaki over the phone as patient is confused and requiring 1:1 sitter. Initialed, dated, and timed and placed in chart. Copy provided to patient's room.
[2020-02-04 11:28] LABS: Glucose Point of Care 252 mg/dL (70-110)
[2020-02-04 11:33] LABS: Vancomycin Trough 16.2 ug/mL (10-15)
[2020-02-04 11:49] LABS: Ketone (Acetest) Serum Positive (Negative)
[2020-02-04] MEDS: HYDROcodone-acetaminophen 10-325 mg Tablet 1 TAB PO ×2 (12:18→20:09)
[2020-02-04] MEDS: nystatin cream 30 gm 1 APPLIC TOPICAL (12:21)
[2020-02-04 12:26] LABS: Lactate (Lactic Acid level) 1.8 mmol/L (0.5-2.2)
--- NOTE | 2020-02-04 13:52 | PC.NURSE ---
pulled iv out by accident resited into right arm at this time......
[2020-02-04] MEDS: morphine 4 mg/mL SDV 1 mL IVP ×2 (14:28→22:00)
[2020-02-04] MEDS: sodium bicarbonate 650 mg Tablet PO ×2 (14:28→22:00)
--- NOTE | 2020-02-04 16:30 | PC.PT ---
PT note; attempted PT evaluation this afternoon, patient lethargic, and unable to stay on task for physical therapy evaluation, frequently falling asleep; will reattempt tomorrow
[2020-02-04 17:15] LABS: Glucose Point of Care 182 mg/dL (70-110)
[2020-02-04] MEDS: nystatin powder 15 gm Btl 1 APPLIC TOPICAL (17:17)
[2020-02-04] MEDS: TRAMadol 50 mg Tablet PO (21:09)
[2020-02-04] MEDS: haloperidol inj 5 mg/mL INJ 1 mL 2 MG IM (22:19)
[2020-02-04] MEDS: OLANZapine 10 mg VIAL IM (22:48)
[2020-02-04] MEDS: HYDROmorphone 1 mg/mL INJ 1 mL 2 MG IVP (22:57)
[2020-02-05] VITALS (31 sets, daily range): BP systolic 80–156; BP diastolic 42–95; PULSE 39–144; RESP 16–31; TEMP 36.5–37.2; O2SAT 85–100
[2020-02-05] MEDS: heparin 5,000 unit/mL INJ 1 mL 5000 UNIT SUBCUT ×3 (00:01→17:11)
[2020-02-05 00:07] LABS: Glucose Point of Care 152 mg/dL (70-110)
[2020-02-05] MEDS: haloperidol inj 5 mg/mL INJ 1 mL IVP (00:36)
[2020-02-05] MEDS: LORazepam 2 mg/mL INJ 1 mL IVP (00:44)
[2020-02-05] MEDS: morphine 4 mg/mL SDV 1 mL 2 MG IVP (01:11)
[2020-02-05] MEDS: ziprasidone 20 mg/mL SDV IM (01:24)
[2020-02-05] MEDS: dexmedetomidine 400 MCG in sodium chloride 0.9% (100 ml) 100 ML IV (01:47)
[2020-02-05] MEDS: fentaNYL 50 mcg/mL INJ 2mL 25 MCG IVP (01:58)
--- NOTE | 2020-02-05 02:18 | PC.NURSE ---
Pt has become increasingly agitated as the shift continues. Dr. Millan contacted multiple times. Dr. Millan came and visualized pt and his agitation. Pt was pulling off cardiac leads, pulse ox, and O2. Pt was yelling, cussing, and hitting at/grabbing/biting at staff. Pt was given multiple sedatives per Dr. Millan. Precidex drip was started and pt seems to have calmed down a bit now. Pt HR has decreased from 130's to 84 bpm. Will continue to monitor vitals and keep Dr. Millan updated.
[2020-02-05] MEDS: dexmedetomidine 400 MCG in sodium chloride 0.9% (100 ml) 100 ML 50.1 MCG IV (03:02)
[2020-02-05 04:07] LABS: Basophils # 0.1 10^3/uL (0.0-0.1); Basophils % 1.3 %; Eosinophils # 1.2 10^3/uL (0.0-0.8); Eosinophils % 10.8 %; Hematocrit 26.5 % (42.0-52.0); Hemoglobin 7.5 g/dL (11.7-16.6); Lymphocytes # 0.6 10^3/uL (0.8-4.8); Lymphocytes % 5.8 %; Mean Corpuscular HGB Conc 28.3 g/dL (30.0-36.0); Mean Corpuscular Hemoglobin 22.3 pg (28.0-34.0); Mean Corpuscular Volume 78.6 fL (80-94); Mean Platelet Volume 10.1 fL (7.4-10.4); Monocytes # 1.4 10^3/uL (0.2-0.9); Monocytes % 13.3 %; Neutrophils # 7.3 10^3/uL (1.8-7.7); Nucleated Red Blood Cells % 0 %; Platelet Count 334 10^3/cmm (130-400); Red Blood Count 3.37 10^6/uL (4.1-5.3); White Blood Count 10.7 10^3/uL (4.0-10.0)
[2020-02-05 04:13] LABS: INR 1.43 (0.8-1.2)
[2020-02-05 04:20] LABS: Alanine Aminotransferase 12 U/L (0-41); Albumin Level 2.8 g/dL (3.5-5.2); Alkaline Phosphatase 97 IU/L (40-130); Anion Gap 15.3 (5-19); Aspartate Amino Transferase 20 U/L (0-40); Blood Urea Nitrogen 36 mg/dL (8-23); Calcium 8.7 mg/dL (8.5-10.5); Carbon Dioxide 20 mmol/L (22-29); Chloride 112 mmol/L (98-107); Globulin 3.5 g/dL (1.3-4.6); Glomerular Filtration Rate 55.8 mL/min (90-130); Glucose 167 mg/dL (65-115); Osmolality Calculated 295 mOsm/kg (285-295); Potassium 5.3 mmol/L (3.5-5.1); Sodium 142 mmol/L (136-145); Total Bilirubin 0.5 mg/dL (0.15-1.2); Total Protein 6.3 g/dL (6.6-8.7)
[2020-02-05] MEDS: dexmedetomidine 400 MCG in sodium chloride 0.9% (100 ml) 100 ML 30.1 MCG IV (05:24)
[2020-02-05 06:02] LABS: Glucose Point of Care 222 mg/dL (70-110)
--- NOTE | 2020-02-05 06:45 | PM.PN ---
Subjective Subjective: Interval history: sedated from meds. minimally responsive top pain. Medications: Reviewed: Yes Medication Review Details: Current Medications Hydrocodone Bitart/Acetaminophen (Manti 10-325 Mg) 1 tab PO 5XD PRN PRN Reason: pain Last Admin: 02/04/20 20:09 Dose: 1 tab Documented by: Dextrose (D50w) 25 ml IVP ONCE PRN; Protocol PRN Reason: hypoglycemia protocol Dextrose (D50w) 50 ml IVP PRN PRN; Protocol PRN Reason: hypoglycemia protocol Glucagon (Glucagen) 1 mg IM ONCE PRN; Protocol PRN Reason: Adult Acute Hypoglycemia Prot. Haloperidol Lactate (Haldol Inj) 2 mg IM Q6H PRN PRN Reason: AGITATION Last Admin: 02/04/20 22:19 Dose: 2 mg Documented by: Heparin Sodium (Beef Lung) (Heparin) 5,000 unit SUBCUT Q8H MASOUD Last Admin: 02/05/20 00:01 Dose: 5,000 unit Documented by: Norepinephrine Bitartrate 4 mg (/ Dextrose) 254 mls @ 0 mls/hr IV .Q0M MASOUD; Protocol Last Titration: 02/03/20 02:45 Dose: 0 mcg/min, 0 mls/hr Documented by: Dextrose (D5w) 500 mls @ 100 mls/hr IV ONCE PRN; Protocol PRN Reason: Adult Acute Hypoglycemia Prot Amiodarone HCl 900 mg/Dextrose/ IV Miscellaneous Supplies 518 mls @ 0 mls/hr IV .Q0M MASOUD; Protocol Last Titration: 02/03/20 14:40 Dose: 0.5 mg/min, 17.3 mls/hr Documented by: Vancomycin HCl 2,000 mg/ (Sodium Chloride) 500 mls @ 250 mls/hr IV Q24H MASOUD Last Infusion: 02/05/20 00:33 Dose: Infused Documented by: Cefepime HCl 1,000 mg/ Sodium (Chloride) 50 mls @ 100 mls/hr IV Q12H MASOUD; Protocol Last Infusion: 02/05/20 05:54 Dose: Infused Documented by: Dexmedetomidine HCl 400 mcg/ (Sodium Chloride) 104 mls @ 0 mls/hr IV .Q0M MASOUD; Protocol Last Titration: 02/05/20 06:25 Dose: 0.1 mcg/kg/hr, 5 mls/hr Documented by: Insulin Aspart (Novolog) 0 unit SUBCUT TIDWM [facility]; Protocol Last Admin: 02/04/20 17:17 Dose: 2 unit Documented by: Lorazepam (Ativan) 1 mg IVP Q6H PRN PRN Reason: ANXIETY Last Admin: 02/04/20 20:11 Dose: 1 mg Documented by: Metoprolol Tartrate (Lopressor) 75 mg PO BID [facility] Last Admin: 02/04/20 17:17 Dose: 75 mg Documented by: Morphine Sulfate (Morphine) 4 mg IVP Q8H PRN PRN Reason: SEVERE PAIN Last Admin: 02/04/20 22:00 Dose: 4 mg Documented by: Nystatin (Nystatin Powder) 1 applic TOPICAL BID [facility] Last Admin: 02/04/20 17:17 Dose: 1 applic Documented by: Nystatin (Nystatin Cream) 1 applic TOPICAL BID [facility] Last Admin: 02/04/20 12:21 Dose: 1 appful Documented by: Pantoprazole Sodium (Protonix) 40 mg IVP DAILY [facility] Last Admin: 02/04/20 08:12 Dose: 40 mg Documented by: Sodium Bicarbonate (Sodium Bicarbonate) 650 mg PO TID [facility] Last Admin: 02/04/20 22:00 Dose: 650 mg Documented by: Tramadol HCl (Ultram) 50 mg PO QID PRN PRN Reason: PAIN Last Admin: 02/04/20 21:09 Dose: 50 mg Documented by: Vitals/I&O/Wt Last Vital Signs Temp 99.7 F H 02/04/20 20:37 Pulse 53 L 02/05/20 06:00 Resp 23 H 02/05/20 06:00 BP 106/65 02/05/20 06:00 Pulse Ox 99 02/05/20 06:00 02/04/20 02/04/20 02/05/20 14:59 22:59 06:59 Intake Total 850 / 850 50 / 900 1683.302 / 2583.302 Output Total 550 / 550 800 / 1350 Balance 850 / 850 -500 / 350 883.302 / 1233.302 Physical Exam Narrative: EXAM NARRATIVE: morbidly obese, sedated, comfortable in bed, NARD VS noted. good uop heent- nc/at, eomi, anicteric neck obese, suppl lungs cta b/l heart reg no rub abd soft, nt, ND, +BS, pannus w/ ce;;u;itis +mcgowan ext w/ edema and skin lesions neuro- sedated Urinary Catheter Management^: Mcgowan: Cath Placed During This Visit: yes Reason for Continuing Indwelling Catheter: Accurate Measurement of Urinary Output in Critically Ill Patients Urinary Catheter Date of Insertion: 02/01/20 Urinary Catheter Time of Insertion: 22:20 Data : 02/05/20 03:22 02/05/20 03:22 Micro: Microbiology 02/01/20 22:28 Urine Culture - Final Urine,Clean Catch Pseudomonas aeruginosa 02/04/20 03:45 Occult Blood (FIT) - Final Stool - Stool Aspirate A&P Additional A&P Information 1. ALEYDA - Creatinine is improving and excellent urine output - likely to be multifactorial, from a combination of hypotension, ACEi/NSAID interference with glmoerular hemodynamics, possible Bactrim effect (? stopped); FE Na 0.3% i.e predominantly pre-renal low flow state - remove Mcgowan when he is more awake- or consider changing to a condom catheter - ivf stopped - Renal sono w/o hydronephrosis - Avoid nephrotoxic agents 2. Lytes - HyperKalemia- improving - AGMA improving- dec na bicarb po and wean off -monitor glucose as per medicine - Repeat BMP this aftenoon 3.Q UTI- pseudomaonas in urine- abx per hospitalist 4. cellulitis- monitor vanco level- aim for trough of 15-19 5. Anemia s/p PRBCs - w/u per hospitalist 6. as kidney fxn improving, will see PRN. please call w/ questions - Case discussed w/ Bedside RN in ICU - Interview and Exam performed via telemed Attestations Medical Necessity Statement*: AMS, sepsis, cellulitis, improving ALEYDA Time Spent in Patient Care: 16 - 35 minutes Coding Level of Care Code Acute Rehabilitation Therapy Aide for Elvira Flowers
--- NOTE | 2020-02-05 07:50 | PC.NURSE ---
Dr Yeh on floor, let him know the heart rate of 30-40
--- NOTE | 2020-02-05 08:13 | USCV_ITS ---
Jacob Ibarra Age: 64 Gender: M : 1955 Exam Date: 02/05/2020 08:06 Ordering Phys: Abdelrahman Yhe MD Technologist: Exam Location: [facility] [place]_ Indication: POOR PULSES RIGHT LEFT Brachial 106.00 mmHg Brachial 106.00 mmHg Pressure (mmHg) Waveform Pressure (mmHg) Waveform 171.00 TECHNICAL SPECIALIST 178.00 170.00 DPA 168.00 1.50 Ankle/Brachial Index 1.50 58.00 Pre-Exercise Toe Pressure 101.00 0.55 Post-Exercise Toe Pressure 0.95 FINDINGS Supernormal resting ABIs bilaterally Diminished resting TBI on the right side Normal resting TBI on the left side CONCLUSIONS 1. Features of mild peripheral artery disease involving the distal vessels on the right side. 2. No significant arterial obstruction on the left side Dr Doug Dacosta MD FACC (Electronically Signed) Final Date: 05 February 2020 20:34 S
--- NOTE | 2020-02-05 08:21 | XR_ITS ---
WS: [id number] Bilateral hips. HISTORY: Fall and hip pain. Quality of examination is limited by body habitus. No fractures are identified. Mild bilateral degene rative changes at the hip joints. XR/XR hip BI 2V wo/w pel [id number] IMPRESSION: No fracture identified. Quality of examination is limited by body habitus.
[2020-02-05] MEDS: pantoprazole 40 mg SDV IVP (09:45)
[2020-02-05] MEDS: sodium bicarbonate 650 mg Tablet PO ×2 (09:46→17:11)
--- NOTE | 2020-02-05 09:51 | PC.OT ---
OT Note: OT evaluation attempted, RN requested hold at this date.
[2020-02-05] MEDS: HYDROcodone-acetaminophen 10-325 mg Tablet 1 TAB PO ×2 (12:05→21:55)
[2020-02-05] MEDS: nystatin powder 15 gm Btl 1 APPLIC TOPICAL (12:06)
[2020-02-05] MEDS: nystatin cream 30 gm 1 APPLIC TOPICAL (12:06)
[2020-02-05 12:17] LABS: Glucose Point of Care 182 mg/dL (70-110)
--- NOTE | 2020-02-05 12:39 | PC.NURSE ---
CT cancelled because of pt wgt. Dr. Yeh notified. Also refusing to eat. Wakes up and answering questions appropriatly at this time.
--- NOTE | 2020-02-05 13:15 | PC.NURSE ---
Spoke with Dr. Yeh regarding pt heart rate dropping down into the 30's. States to continue to monitor. When he is awake his HR remains in the 70-80's
--- NOTE | 2020-02-05 13:35 | PC.NURSE ---
Pt having some pauses on monitor. Dr. Yeh on floor and made aware.
[2020-02-05 16:47] LABS: Glucose Point of Care 145 mg/dL (70-110)
[2020-02-05] MEDS: metoprolol tartrate 50 mg Tablet 75 MG PO (17:11)
--- NOTE | 2020-02-05 17:25 | P.PN_ITS ---
Subjective Subjective: Interval history: This morning patient becomes quite agitated during manipulation, looking at his pannus or looking at his back, asking why he is here, what we are doing to him, he is able to answer some questions here and there, but overall is still confused, had episodes of agitation overnight requiring Precedex, Haldol, afebrile, Vitals/I&O/Wt Last Vital Signs Temp 98.9 F 02/05/20 14:00 Pulse 90 02/05/20 17:00 Resp 20 H 02/05/20 17:00 BP 115/55 02/05/20 17:00 Pulse Ox 98 02/05/20 17:00 02/05/20 02/05/20 02/05/20 06:59 14:59 22:59 Intake Total 1683.302 / 2583.302 120 / 120 320 / 440 Output Total 800 / 1350 800 / 800 Balance 883.302 / 1233.302 120 / 120 -480 / -360 Weight last 48 hrs Weight 198.844 kg Physical Exam Const: COMMON NORMALS: no acute distress EXAM LIMITATIONS: altered mental status NUTRITIONAL APPEARANCE: obese HENMT: COMMON NORMALS: normocephalic HEAD & SCALP: normocephalic Neck/C-Spine: COMMON NORMALS: no JVD Resp: COMMON NORMALS: normal respiratory effort, No retractions, No use of accessory muscles and clear to auscultation bilaterally AUSCULTATION: clear to auscultation bilaterally Cardio: COMMON NORMALS: no JVD, regular rhythm, S1 normal heart sound present and S2 normal heart sound present RATE: bradycardic RHYTHM: regular rhythm HEART SOUNDS: S1 normal heart sound present and S2 normal heart sound present GI: COMMON NORMALS: Normal to inspection, nondistended, normoactive bowel sounds present, Soft to palpation, non-tender, No hepatosplenomegaly present, no masses and no bruits PALPATION: Yes Soft to palpation and Yes No hepatosplenomegaly present Back/Pelvis: OTHER: Grade 1 decubitus ulcer Extremity: COMMON NORMALS: no calf tenderness and no pedal edema OTHER: Bilateral venous stasis ulcers Psych: ATTITUDE: Yes agitated Skin: OTHER: Stage I decubitus ulcer on the back, chronic venous stasis ulcers bilateral extremities Pannus, area of cellulitis has improved, cobblestoning of the skin Urinary Catheter Management^: Min: Cath Placed During This Visit: yes Reason for Continuing Indwelling Catheter: Accurate Measurement of Urinary Output in Critically Ill Patients Urinary Catheter Date of Insertion: 02/01/20 Urinary Catheter Time of Insertion: 22:20 Data : 02/05/20 03:22 02/05/20 03:22 A&P Assessment and plan (1) UTI (urinary tract infection): Pseudomonas. Possible sepsis w leukocytosis, tachycardia. Cont cefepime for now, likely de-escalate in the next 24 hours Status: Acute (2) Cellulitis: Panniculitis Cont Vancomycn. Chronic chepe stasis dermatitis legs. Will request arterial dopplers. If perfusion is adequate, consider compression dressings. Status: Acute (3) Acute hyperkalemia: Potassium 5.3 today, stabilized. Low potassium diet. No hemodialysis so far. Appreciate nephrology recommendations. Hold lisinopril. Currently on a clear liquid diet Status: Acute (4) Acute kidney injury: Improving. Likely multifactorial, prerenal, with also possible cardiorenal, and from Bactrim and lisinopril. Received fluid challenge. Monitor CROW, renal function. INR decreasing. Status: Acute (5) Encephalopathy acute: Hyperactive delirium, likely secondary to cellulitis, UTI, sepsis, dementia, ICU related delirium, opiate withdrawal Requires Precedex and Haldol often during the night Continue clear liquid diet Slowly de-escalate pain medications, de-escalate [place] 05/04/2025 every 6 hours as needed 1:1. If continues to improve may DC. Antipsychotic for hallucinations, agitation. Ativan as needed for anxiety. Status: Acute (6) Hypotension: Resolved. Weaned down from levophed. This morning bradycardia Hold Levophed Treat sepsis. Technically limited TTE, but EF appears better at perhaps 55%. History of severe cardiomyopathy, EF 20-25%, although this was back in 2011. Status: Acute (7) Warfarin anticoagulation: Hold. Hemoglobin down to 7.5 may be able to resume soon. Status: Acute (8) Congestive heart failure: TTE of poor quality, but appears EF is better than previously, currently close to normal. Discussed with his . No signs of acute ischemia so far. With significant fluid overall, once blood pressure and renal function allow would benefit from diuresis. Status: Acute Qualifiers: Heart failure chronicity: acute on chronic Heart failure type: unspecified Qualified Code(s): I50.9 - Heart failure, unspecified (9) Anasarca: Once blood pressure, renal function stabilized would benefit from diuresis. At this time monitor renal function, I&O. For now holding off on hemodialysis. Appreciate nephrology recommendations. Status: Acute (10) Venous stasis: Chronic venous stasis dermatitis in both lower extremities, but also in the pannus which is extremely large. Concern for superimposed cellulitis of the pannus with multiple areas of ulceration, with drainage, erythema and swelling. Compression therapy of lower extremities can be continued on chronic basis. Elevate pannus. Treatment of cellulitis as above. Unfortunately has not been adherent with weight loss and lifestyle tutu mmendations. Status: Acute (11) Diabetes mellitus: Monitor BG. NPO for now. Add SSI. So far BGs not elevated. No ketones in urine. Status: Chronic (12) Morbid obesity: Status: Chronic (13) Atrial fibrillation: A. fib with RVR. Currently resolved, bradycardic, heart rate 40s when falling asleep, but when awakened, comes up to the 90s Continue to monitor heart rate Status: Acute (14) Bradycardia: -Today patient shows bradycardia, heart rates in the low 40s when falling asleep, when he is aroused heart rate comes up to the high 90s -Some component related to Precedex and opiate medications -We will continue to monitor Status: Acute (15) Anemia: -Status post 1 unit PRBC during this admission -Coumadin held -Hemoglobin down to 7.5, likely slow GI bleed -Monitor hemoglobin, transfuse as needed -Continue Protonix 40 daily -Stop heparin for DVT prophylaxis SCDs Status: Acute Additional A&P Information Microcytic anemia: Additional 1 unit PBC transfusion on 02/02 due to hemoglobin 7.3. Responded well. Per discussion with his she states that he has history of iron deficiency anemia which was suspected secondary to slow GI bleed, and Hemoccult was previously ordered on outpatient basis but he had declined to perform it. Never had a colonoscopy. Low-grade fever: Continues running low-grade temp 99.5. Perhaps related to urinary tract infection or cellulitis. No sign of obstruction on renal ultrasound. Denies any shortness of breath, has had no cough. No headache. 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
--- NOTE | 2020-02-05 18:17 | PC.PT ---
PT note; nursing recommends hold PT today due to patient has received medicines for agitation and they feel he needs to rest; will reattempt tomorrow
[2020-02-05 20:18] LABS: Glucose Point of Care 155 mg/dL (70-110)
[2020-02-05] MEDS: dexmedetomidine 400 MCG in sodium chloride 0.9% (100 ml) 100 ML 15 MCG IV (21:36)
[2020-02-06] VITALS (31 sets, daily range): BP systolic 81–148; BP diastolic 46–104; PULSE 50–92; RESP 13–28; TEMP 36.3–37.1; O2SAT 92–100
[2020-02-06 00:12] LABS: Glucose Point of Care 176 mg/dL (70-110)
[2020-02-06 01:42] LABS: Ferritin 114 ng/mL (30-400); Iron 14 ug/dL (59-158); Percent Saturation 8.6 % (20-50); Total Iron Binding Capacity 161 mcg/dl; Unsaturated Iron Binding 147 ug/dL (112-347)
[2020-02-06] MEDS: LORazepam 2 mg/mL INJ 1 mL 1 MG IVP (01:57)
--- NOTE | 2020-02-06 02:00 | PC.NURSE ---
Patient restless, precedex titrated per protocol, prn ativan given.
[2020-02-06] MEDS: dexmedetomidine 400 MCG in sodium chloride 0.9% (100 ml) 100 ML 25.1 MCG IV (02:42)
[2020-02-06] MEDS: haloperidol inj 5 mg/mL INJ 1 mL 2 MG IM (04:25)
[2020-02-06] MEDS: dexmedetomidine 400 MCG in sodium chloride 0.9% (100 ml) 100 ML 35.1 MCG IV (05:45)
[2020-02-06 05:53] LABS: Basophils # 0.1 10^3/uL (0.0-0.1); Basophils % 1.3 %; Eosinophils # 1.5 10^3/uL (0.0-0.8); Eosinophils % 14.8 %; Hemoglobin 8.2 g/dL (11.7-16.6); Lymphocytes # 0.5 10^3/uL (0.8-4.8); Lymphocytes % 5.4 %; Mean Corpuscular HGB Conc 28.3 g/dL (30.0-36.0); Mean Corpuscular Hemoglobin 22.8 pg (28.0-34.0); Mean Corpuscular Volume 80.6 fL (80-94); Mean Platelet Volume 10.4 fL (7.4-10.4); Monocytes # 1.1 10^3/uL (0.2-0.9); Neutrophils # 6.7 10^3/uL (1.8-7.7); Neutrophils % 66.6 %; Nucleated Red Blood Cells % 0 %; Platelet Count 319 10^3/cmm (130-400); Red Cell Distribution Width 23.8 % (12.1-15.1); White Blood Count 10.1 10^3/uL (4.0-10.0)
[2020-02-06 05:54] LABS: Glucose Point of Care 191 mg/dL (70-110)
[2020-02-06 06:44] LABS: C Reactive Protein 66.1 mg/L (0.0-4.9)
[2020-02-06 06:55] LABS: Procalcitonin 0.11 ng/mL (0-0.5)
[2020-02-06 07:06] LABS: Alanine Aminotransferase 12 U/L (0-41); Albumin Level 2.5 g/dL (3.5-5.2); Alkaline Phosphatase 96 IU/L (40-130); Anion Gap 13.5 (5-19); Aspartate Amino Transferase 15 U/L (0-40); Blood Urea Nitrogen 33 mg/dL (8-23); Calcium 8.6 mg/dL (8.5-10.5); Carbon Dioxide 19 mmol/L (22-29); Chloride 113 mmol/L (98-107); Globulin 3.7 g/dL (1.3-4.6); Glomerular Filtration Rate 67.6 mL/min (90-130); Glucose 199 mg/dL (65-115); Magnesium 1.7 mg/dL (1.7-2.3); Osmolality Calculated 293 mOsm/kg (285-295); Phosphorus 2.2 mg/dL (2.5-4.5); Potassium 5.5 mmol/L (3.5-5.1); Sodium 140 mmol/L (136-145); Total Bilirubin 0.3 mg/dL (0.15-1.2); Total Protein 6.2 g/dL (6.6-8.7)
[2020-02-06 07:42] LABS: Glucose Point of Care 214 mg/dL (70-110)
[2020-02-06] MEDS: sodium bicarbonate 650 mg Tablet PO ×2 (08:19→17:12)
[2020-02-06] MEDS: nystatin powder 15 gm Btl 1 APPLIC TOPICAL ×2 (08:20→17:16)
[2020-02-06] MEDS: pantoprazole 40 mg SDV IVP (08:20)
[2020-02-06] MEDS: nystatin cream 30 gm 1 APPLIC TOPICAL ×2 (08:21→17:49)
--- NOTE | 2020-02-06 08:38 | PC.NURSE ---
PRECEDEX GTT Patient HR was bradycardic in the 30's. Precedex drip turned off and will continue to monitor patient closely.
[2020-02-06 09:02] LABS: INR 1.17 (0.8-1.2)
--- NOTE | 2020-02-06 09:48 | P.CONIM_ITS ---
Providers/Reason For Consult Consulting Physican/Specialty*: Cardiology Reason for Consult*: Bradycardia with intermittent pauses and slow ventricular response Attending Physician: Abdelrahman Yeh MD Primary Care Provider: LISHA Torres History of Present Illness History of Present Illness Jacob Ibarra is a 64 year old male past medical history significant for morbid obesity, severe cardiomyopathy with left ventricular ejection fraction of 20% refused angiogram in the past so it remains unspecified, acute on chronic CKD, hypertension, diabetes mellitus, systolic heart failure, chronic atrial fibrillation was admitted with sepsis, cellulitis, hyperkalemia and acute on chronic renal failure. Patient was hydrated started on antibiotics and improved steadily however for the last couple of days he has been having off-and-on delirium for which he was sedated at some point he was also noted to have frequent less than 3-second pauses however with controlled rate of A. fib. It is the reason we have been asked to see the patient. When I saw the patient he was alert awake and oriented for that time. His sedation has been stopped. He denies any prior history of heart blocks, his noé gurpreet has been withheld. Review of Systems General: Reports: Other (ROS unobtainable as patient is uncooperative other than as noted from him and in HPI.) Const: Reports: chills, body aches and fatigue; Denies: fever(s) Eyes: Denies: change in vision ENMT: Denies: throat pain Card: Reports: irregular heart rhythm, edema, swelling of feet/ankles, lightheadedness, dyspnea on exertion, orthopnea and leg pain with exertion; Denies: chest pain or palpitations Resp: Reports: dyspnea GI: Denies: abdominal pain, nausea or vomiting : Denies: flank pain Musc: Reports: extremity pain and limited range of motion; Denies: neck pain Skin/Breast: Reports: skin tenderness, skin swelling, changing lesions and changes in skin color Neuro: Denies: headache(s) Psych: Denies: anxiety or depression Endo: Denies: polyuria [place]/Lymph: Denies: easy bruising All/Imm: Denies: urticaria Meds/Allergies Home Medications and Allergies Home Medications Medication Instructions Recorded Confirmed Last Taken Type nystatin 100,000 unit/gram topical 1 applic TOPICAL BID 30 Days #60 gm 11/17/19 12/05/19 Unknown Rx ointment walker #1 each 11/17/19 12/05/19 Unknown Rx hydrocodone 10 mg-acetaminophen 1 tab PO .FIVE TIMES DAILY PRN 30 12/05/1902/01 Unknown Rx 325 mg tablet Days #150 tab buspirone 1 PO BID PRN 02/03/20 Unknown History duloxetine PO BID 02/03/20 Unknown History furosemide 80 mg PO DAILY 02/03/20 02/03/20 Unknown History glyburide 2.5 mg PO DAILY 02/03/20 02/03/20 Unknown History metoprolol tartrate 100 mg PO BID 02/03/20 02/03/20 Unknown History pregabalin 1 PO DIRECTED 02/03/20 Unknown History sulfamethoxazole-trimethoprim 1 PO DAILY 02/03/20 Unknown History tramadol 50 mg PO PER PKG DIR 02/03/20 02/03/20 Unknown History warfarin 1 PO DAILY 02/03/20 Unknown History Allergies Allergy/AdvReac Type Severity Reaction Status Date / Time Penicillins Allergy Unknown Unknown Verified 01/23/20 12:52 Current Medications Current Medications Generic Name Dose Route Start Last Admin Trade Name Freq PRN Reason Stop Dose Admin Hydrocodone Bitart/Acetaminophen 1 tab 02/05/20 08:12 02/05/20 21:55 [place] 10-325 Mg PO 1 tab Q6H PRN Administration pain Haloperidol Lactate 2 mg 02/02/20 17:20 02/06/20 04:25 Haldol Inj IM 2 mg Q6H PRN Administration AGITATION Heparin Sodium (Beef Lung) 5,000 unit 02/03/20 08:00 02/05/20 17:11 Heparin SUBCUT 5,000 unit Q8H MASOUD Administration Amiodarone HCl 900 mg/ 518 mls @ 0 mls/hr 02/03/20 08:15 02/03/20 14:40 Dextrose/ IV Miscellaneous IV 0.5 mg/min Supplies .Q0M MASOUD 17.3 mls/hr Titration Protocol Per Protocol Vancomycin HCl 2,000 mg/ 500 mls @ 250 mls/hr 02/03/20 12:00 02/05/20 12:19 Sodium Chloride IV 250 mls/hr Q24H MASOUD Administration Cefepime HCl 1,000 mg/ Sodium 50 mls @ 100 mls/hr 02/04/20 15:00 02/06/20 04:15 Chloride IV 100 mls/hr Q12H MASOUD Administration Protocol Dexmedetomidine HCl 400 mcg/ 104 mls @ 0 mls/hr 02/05/20 01:45 02/06/20 08:38 Sodium Chloride IV 0 mcg/kg/hr .Q0M MASOUD 0 mls/hr Titration Protocol Per Protocol Insulin Aspart 0 unit 02/02/20 12:00 02/06/20 08:19 Novolog SUBCUT 4 unit TIDWM MASOUD Administration Protocol Lorazepam 1 mg 02/03/20 08:02 02/06/20 01:57 Ativan IVP 1 mg Q6H PRN Administration ANXIETY Metoprolol Tartrate 75 mg 02/04/20 09:00 02/06/20 08:33 Lopressor PO Not Given BID MASOUD Nystatin 1 applic 02/02/20 09:00 02/06/20 08:20 Nystatin Powder TOPICAL 1 applic BID MASOUD Administration Nystatin 1 applic 02/04/20 18:00 02/06/20 08:21 Nystatin Cream TOPICAL 1 appful BID MASOUD Administration Pantoprazole Sodium 40 mg 02/03/20 09:00 02/06/20 08:20 Protonix IVP 40 mg DAILY MASOUD Administration Sodium Bicarbonate 650 mg 02/05/20 09:00 02/06/20 08:19 Sodium Bicarbonate PO 650 mg BID MASOUD Administration Additional Medication Information Current Medications Hydrocodone Bitart/Acetaminophen ([place] 10-325 Mg) 1 tab PO 5XD PRN PRN Reason: pain Last Admin: 02/04/20 20:09 Dose: 1 tab Documented by: Dextrose (D50w) 25 ml IVP ONCE PRN; Protocol PRN Reason: hypoglycemia protocol Dextrose (D50w) 50 ml IVP PRN PRN; Protocol PRN Reason: hypoglycemia protocol Glucagon (Glucagen) 1 mg IM ONCE PRN; Protocol PRN Reason: Adult Acute Hypoglycemia Prot. Haloperidol Lactate (Haldol Inj) 2 mg IM Q6H PRN PRN Reason: AGITATION Last Admin: 02/04/20 22:19 Dose: 2 mg Documented by: Heparin Sodium (Beef Lung) (Heparin) 5,000 unit SUBCUT Q8H MASOUD Last Admin: 02/05/20 00:01 Dose: 5,000 unit Documented by: Norepinephrine Bitartrate 4 mg (/ Dextrose) 254 mls @ 0 mls/hr IV .Q0M MASOUD; Protocol Last Titration: 02/03/20 02:45 Dose: 0 mcg/min, 0 mls/hr Documented by: Dextrose (D5w) 500 mls @ 100 mls/hr IV ONCE PRN; Protocol PRN Reason: Adult Acute Hypoglycemia Prot Amiodarone HCl 900 mg/Dextrose/ IV Miscellaneous Supplies 518 mls @ 0 mls/hr IV .Q0M [facility]; Protocol Last Titration: 02/03/20 14:40 Dose: 0.5 mg/min, 17.3 mls/hr Documented by: Vancomycin HCl 2,000 mg/ (Sodium Chloride) 500 mls @ 250 mls/hr IV Q24H [facility] Last Infusion: 02/05/20 00:33 Dose: Infused Documented by: Cefepime HCl 1,000 mg/ Sodium (Chloride) 50 mls @ 100 mls/hr IV Q12H [facility]; Protocol Last Infusion: 02/05/20 05:54 Dose: Infused Documented by: Dexmedetomidine HCl 400 mcg/ (Sodium Chloride) 104 mls @ 0 mls/hr IV .Q0M [facility]; Protocol Last Titration: 02/05/20 06:25 Dose: 0.1 mcg/kg/hr, 5 mls/hr Documented by: Insulin Aspart (Novolog) 0 unit SUBCUT TIDWM [facility]; Protocol Last Admin: 02/04/20 17:17 Dose: 2 unit Documented by: Lorazepam (Ativan) 1 mg IVP Q6H PRN PRN Reason: ANXIETY Last Admin: 02/04/20 20:11 Dose: 1 mg Documented by: Metoprolol Tartrate (Lopressor) 75 mg PO BID [facility] Last Admin: 02/04/20 17:17 Dose: 75 mg Documented by: Morphine Sulfate (Morphine) 4 mg IVP Q8H PRN PRN Reason: SEVERE PAIN Last Admin: 02/04/20 22:00 Dose: 4 mg Documented by: Nystatin (Nystatin Powder) 1 applic TOPICAL BID [facility] Last Admin: 02/04/20 17:17 Dose: 1 applic Documented by: Nystatin (Nystatin Cream) 1 applic TOPICAL BID [facility] Last Admin: 02/04/20 12:21 Dose: 1 appful Documented by: Pantoprazole Sodium (Protonix) 40 mg IVP DAILY [facility] Last Admin: 02/04/20 08:12 Dose: 40 mg Documented by: Sodium Bicarbonate (Sodium Bicarbonate) 650 mg PO TID MASOUD Last Admin: 02/04/20 22:00 Dose: 650 mg Documented by: Tramadol HCl (Ultram) 50 mg PO QID PRN PRN Reason: PAIN Last Admin: 02/04/20 21:09 Dose: 50 mg Documented by: PFSH Acute PFSH: Medical History Anasarca Anxiety Atrial fibrillation Cardiomyopathy Chronic bilateral low back pain Chronic idiopathic pain syndrome Chronic kidney disease (CKD) Congestive heart failure 20-25% EF pulmonary hypertension Diabetes mellitus Encounter for long-term opiate analgesic use History of cardioversion Failed electrical cardioversion in 2011 for A. fib Morbid obesity Venous stasis Warfarin anticoagulation Surgical History S/P ankle fusion LEFT S/P cholecystectomy Family History Father Diabetes Social History Smoking and tobacco status: never smoked Second hand smoke exposure: No Alcohol intake: never Marital status: History of recent travel: No Dietary Habits: Current diet type/program: regular and low salt Caffeine: Yes Caffeine intake frequency: coffee Home Safety: Firearms in home: Yes Firearms unloaded and locked?: Yes Vitals/I&O/Wt Last Vital Signs Temp 97.7 F 02/06/20 04:00 Pulse 66 02/06/20 06:00 Resp 24 H 02/06/20 06:00 BP 138/66 02/06/20 06:00 Pulse Ox 93 02/06/20 06:00 02/05/20 02/06/20 02/06/20 22:59 06:59 14:59 Intake Total 450.948 / 570.948 159.957 / 730.905 100.205 / 100.205 Output Total 800 / 800 800 / 1600 Balance -349.052 / -229.052 -640.043 / -869.095 100.205 / 100.205 Weight last 48 hrs Weight 438 lb 6 oz Physical Exam Narrative: EXAM NARRATIVE: GENERAL: Patient is awake and oriented x2. NECK: No jugular vein distension. HEENT: No cyanosis. No icterus. No pallor. HEART: Regularly irregular S1 and S2. No murmur, rub or gallop. LUNGS: Clear to auscultate bilaterally. ABDOMEN: Soft, nontender and nondistended. Positive bowel sounds. No guarding, rebound or tenderness. CENTRAL NERVOUS SYSTEM: Grossly nonfocal. EXTREMITIES: Lower extremities without edema bilaterally. Urinary Catheter Management^: Min: Cath Placed During This Visit: yes Reason for Continuing Indwelling Catheter: Accurate Measurement of Urinary Output in Critically Ill Patients Urinary Catheter Date of Insertion: 02/01/20 Urinary Catheter Time of Insertion: 22:20 A&P Assessment and plan (1) Anemia: Stable continue to monitor Status: Acute (2) Bradycardia: Most likely due to hypoventilation/sleep apnea. Advise reducing sedation and holding noé gurpreet which has already been held. Check TSH. Status: Acute (3) Cellulitis: Continue antibiotics as per medicine Status: Acute (4) Encephalopathy acute: Could be secondary electrolyte imbalance sedation and hospital induced psychosis. Medicine has already been working on it Status: Acute (5) Acute renal failure: Improved and resolved.Nephrology is on board Status: Acute Qualifiers: Acute renal failure type: unspecified Qualified Code(s): N17.9 - Acute kidney failure, unspecified (6) Congestive heart failure: Overcompensated on all the graphite pan drier tender side. Continue holding diuretics Status: Acute Qualifiers: Heart failure chronicity: acute on chronic Heart failure type: unspecif ied Qualified Code(s): I50.9 - Heart failure, unspecified (7) Atrial fibrillation: Rate controlled continue to monitor. 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
[2020-02-06 12:20] LABS: Glucose Point of Care 162 mg/dL (70-110)
--- NOTE | 2020-02-06 13:08 | PC.SOCIAL ---
IM follow up explained, dates, timed and initialed. did verbalizes some questions on process but verbalized understanding. DC plan changed a little and has been updated. Zacarias will send referral to [facility].
--- NOTE | 2020-02-06 13:22 | PM.PN ---
Subjective Subjective: Interval history: Overnight patient has been afebrile, normotensive, having episodes of radycardia with pauses, saturating high 90s on room air, again had episodes of hyperactive delirium overnight, requiring Haldol. This morning, was quite somnolent, after he has received Haldol, does awaken to ask what is happening to him, where he is, but beyond that does not really follow commands. His panniculitis looks improved, kidney function is improved,. His telemetry monitoring does show bradycardia when he sleeping, but when aroused, his heart rates do go in the high 90s, this morning according to nursing staff he refused his pain medications Vitals/I&O/Wt Last Vital Signs Temp 97.9 F 02/06/20 13:11 Pulse 63 02/06/20 12:00 Resp 20 H 02/06/20 12:00 BP 111/63 02/06/20 12:00 Pulse Ox 93 02/06/20 06:00 02/05/20 02/06/20 02/06/20 22:59 06:59 14:59 Intake Total 450.948 / 1070.948 159.957 / 1230.905 340.205 / 340.205 Output Total 800 / 800 800 / 1600 Balance -349.052 / 270.948 -640.043 / -369.095 340.205 / 340.205 Weight last 48 hrs Weight 198.844 kg Physical Exam Const: COMMON NORMALS: no acute distress EXAM LIMITATIONS: altered mental status NUTRITIONAL APPEARANCE: obese HENMT: COMMON NORMALS: normocephalic HEAD & SCALP: normocephalic Neck/C-Spine: COMMON NORMALS: no JVD Resp: COMMON NORMALS: normal respiratory effort, No retractions, No use of accessory muscles and clear to auscultation bilaterally AUSCULTATION: clear to auscultation bilaterally Cardio: COMMON NORMALS: no JVD, S1 normal heart sound present and S2 normal heart sound present RATE: bradycardic HEART SOUNDS: S1 normal heart sound present and S2 normal heart sound present OTHER: Sinus pauses GI: COMMON NORMALS: Normal to inspection, nondistended, normoactive bowel sounds present, Soft to palpation, non-tender, No hepatosplenomegaly present, no masses and no bruits PALPATION: Yes Soft to palpation and Yes No hepatosplenomegaly present Back/Pelvis: OTHER: Grade 1 decubitus ulcer over sacrum Extremity: COMMON NORMALS: no calf tenderness and no pedal edema OTHER: Bilateral venous stasis ulcers Psych: ATTITUDE: Yes agitated Skin: OTHER: Stage I decubitus ulcer on the back, chronic venous stasis ulcers bilateral extremities Pannus, area of cellulitis has improved, cobblestoning of the skin Urinary Catheter Management^: Min: Cath Placed During This Visit: yes Reason for Continuing Indwelling Catheter: Accurate Measurement of Urinary Output in Critically Ill Patients Urinary Catheter Date of Insertion: 02/01/20 Urinary Catheter Time of Insertion: 22:20 Data : 02/06/20 05:00 02/06/20 05:00 A&P Assessment and plan (1) UTI (urinary tract infection): Pseudomonas. Possible sepsis w leukocytosis, tachycardia. Given his continued hyperactive delirium, continue broad-spectrum antibiotic therapy Cont cefepime for now, likely de-escalate in the next 24 hours Status: Acute (2) Cellulitis: Panniculitis Cont Vancomycn. Chronic chepe stasis dermatitis legs. TRINITY shows features of mild peripheral arterial disease involving the distal vessels on the right side, no significant arterial obstruction on the left Status: Acute (3) Acute hyperkalemia: Potassium 5.5 today, stabilized. Low potassium diet. Start Kayexalate No hemodialysis so far. Appreciate nephrology recommendations. Hold lisinopril. Currently on a clear liquid diet Status: Acute (4) Acute kidney injury: Improving. 1.1. Likely multifactorial, prerenal, with also possible cardiorenal, and from Bactrim and lisinopril. Monitor CROW, renal function. INR decreasing. Status: Acute (5) Encephalopathy acute: Hyperactive delirium, likely secondary to cellulitis, UTI, sepsis, dementia, ICU related delirium, opiate withdrawal Requires Precedex and Haldol often during the night Stop Haldol and Precedex, switch to Zyprexa Slowly de-escalate pain medications, de-escalate [place] 05/04/2025 every 6 hours as needed 1:1. If continues to improve may DC. Status: Acute (6) Hypotension: Resolved. Weaned down from levophed. Treat sepsis. Technically limited TTE, but EF appears better at perhaps 55%. History of severe cardiomyopathy, EF 20-25%, although this was back in 2011. Status: Acute (7) Warfarin anticoagulation: Hold. Hemoglobin down to 8.2 may be able to resume soon. Status: Acute (8) Congestive heart failure: TTE of poor quality, but appears EF is better than previously, currently close to normal. Discussed with his . No signs of acute ischemia so far. With significant fluid overall, once blood pressure and renal function allow would benefit from diuresis. Status: Acute Qualifiers: Heart failure chronicity: acute on chronic Heart failure type: unspecified Qualified Code(s): I50.9 - Heart failure, unspecified (9) Anasarca: Once blood pressure, renal function stabilized would benefit from diuresis. At this time monitor renal function, I&O. For now holding off on hemodialysis. Appreciate nephrology recommendations. Status: Acute (10) Venous stasis: Chronic venous stasis dermatitis in both lower extremities, but also in the pannus which is extremely large. Concern for superimposed cellulitis of the pannus with multiple areas of ulceration, with drainage, erythema and swelling. Compression therapy of lower extremities can be continued on chronic basis. Elevate pannus. Treatment of cellulitis as above. Unfortunately has not been adherent with weight loss and lifestyle recommendations. Status: Acute (11) Diabetes mellitus: Monitor BG. Dysphasia diet. Add SSI. So far BGs not elevated. No ketones in urine. Status: Chronic (12) Morbid obesity: Status: Chronic (13) Atrial fibrillation: A. fib with RVR. Currently resolved, bradycardic with sinus pauses, heart rate 40s when falling asleep, but when awakened, comes up to the 90s Continue to monitor heart rate Status: Acute (14) Bradycardia: -Continues to have bradycardia with sinus pauses -I have consulted cardiology due to sinus pauses -Some component related to Precedex and opiate medications -We will continue to monitor Status: Acute (15) Anemia: -Status post 1 unit PRBC during this admission -Coumadin held -Hemoglobin down to 8.2, likely slow GI bleed and related acute renal failure -Monitor hemoglobin, transfuse as needed -Continue Protonix 40 daily -Stop heparin for DVT prophylaxis SCDs Status: Acute Additional A&P Information Microcytic anemia: Additional 1 unit PBC transfusion on 02/02 due to hemoglobin 7.3. Responded well. Per discussion with his she states that he has history of iron deficiency anemia which was suspected secondary to slow GI bleed, and Hemoccult was previously ordered on outpatient basis but he had declined to perform it. Never had a colonoscopy. Low-grade fever: Continues running low-grade temp 99.5. Afebrile since 02/04/2020, perhaps related to urinary tract infection or cellulitis. No sign of obstruction on renal ultrasound. Plan is to move patient to [facility] due to atrial fibrillation, bradycardia, sinus pauses, continue broad-spectrum antibiotics with de-escalation the next 24 hours, awaiting retirement placement Attestations Medical Necessity Statement*: Requires hospitalization for panniculitis, UTI, hyperactive delirium, sinus pauses Coding Level of Care Code Acute Chief Solution Architect for [facility] Fwd Diagnoses UTI (urinary tract infection) N39.0 Cellulitis L03.90 Acute hyperkalemia E87.5 Acute kidney injury N17.9 Encephalopathy acute G93.40 Hypotension I95.9 Warfarin anticoagulation Z79.01 Congestive heart failure I50.9 Heart failure chronicity: acute on chronic Heart failure type: unspecified Anasarca R60.1 Venous stasis I87.8 Diabetes mellitus E11.9 Morbid obesity E66.01 Atrial fibrillation I48.91 Bradycardia R00.1 Anemia D64.9
[2020-02-06] MEDS: sodium polystyrene sulfonate 15 gm/60 mL Btl PO (14:40)
--- NOTE | 2020-02-06 15:18 | PC.NURSE ---
TRANSFER TO FLOOR Report called to Zita Bailey RN. Patient transferred to 104. , Jaki, notified of transfer. All belongings sent with patient. Patient oriented to room and call light within reach.
[2020-02-06 16:39] LABS: Glucose Point of Care 160 mg/dL (70-110)
--- NOTE | 2020-02-06 16:52 | PC.NURSE ---
medication rounding late due to patient cares
[2020-02-06] MEDS: metoprolol tartrate 50 mg Tablet 75 MG PO (17:12)
[2020-02-06] MEDS: OLANZapine 5 mg TABLET 2.5 MG PO (17:12)
[2020-02-06] MEDS: HYDROcodone-acetaminophen 10-325 mg Tablet 1 TAB PO (20:14)
[2020-02-06 20:29] LABS: Glucose Point of Care 140 mg/dL (70-110)
--- NOTE | 2020-02-06 20:53 | PC.NURSE ---
Received report from Zita Read RN at 1904. Patient resting in bariatric bed. Air transfer mat in place under patient. Patient appears appropriate this evening and is able to follow commands. one on one sitter at bedside for reported AMS. Patient c/o generalized pain refusing pain medication at that time. Patient continues to c/o generalized pain 8/10 and patient was agreeable to have hyrdrocodone 10/ and was given as ordered at 2018. Instructed patient on use of hydrocodone. He verbalized understanding. Reinforcement will be provided as needed.
[2020-02-06] MEDS: TRAMadol 50 mg Tablet PO (23:08)
--- NOTE | 2020-02-06 23:15 | PC.NURSE ---
Patient appears appropriate this evening. Patient reports talking to his boys this evening. C/O generalized body pain. Repositioned for comfort. Medication given as ordered. No distress observed.
[2020-02-07] MEDS: sodium polystyrene sulfonate 15 gm/60 mL Btl PO (01:03)
--- NOTE | 2020-02-07 01:10 | PC.NURSE ---
Patient cooperative and is able to follow commands at this time. Pleasant, visiting with 1:1 sitter. C/o pain to generalized body. Patient states, I just can't get comfortable. Repositioned for comfort with pillows placed.
[2020-02-07] MEDS: HYDROcodone-acetaminophen 10-325 mg Tablet 1 TAB PO (02:04)
--- NOTE | 2020-02-07 02:30 | PC.NURSE ---
Patient continues to c/o not being comfortable. Stated, I can't sleep unless I am in a recliner. Positioned bariatric bed to a sitting/reclined position. Patient expressed thanks and increased comfort for now. No other distresses observed. Patient has not slept this night.
[2020-02-07 03:37] VITALS: BP 111/73; PULSE 94; RESP 25; TEMP 37.1; O2SAT 94
[2020-02-07 04:40] LABS: Basophils # 0.2 10^3/uL (0.0-0.1); Basophils % 1.5 %; Eosinophils # 1.3 10^3/uL (0.0-0.8); Eosinophils % 12.9 %; Hematocrit 28.8 % (42.0-52.0); Hemoglobin 8.2 g/dL (11.7-16.6); Lymphocytes # 0.8 10^3/uL (0.8-4.8); Lymphocytes % 8.3 %; Mean Corpuscular HGB Conc 28.5 g/dL (30.0-36.0); Mean Corpuscular Hemoglobin 22.3 pg (28.0-34.0); Mean Corpuscular Volume 78.5 fL (80-94); Mean Platelet Volume 10.2 fL (7.4-10.4); Monocytes # 1.1 10^3/uL (0.2-0.9); Monocytes % 11.2 %; Neutrophils # 6.6 10^3/uL (1.8-7.7); Neutrophils % 65.4 %; Nucleated Red Blood Cells % 0 %; Platelet Count 345 10^3/cmm (130-400); Red Blood Count 3.67 10^6/uL (4.1-5.3); Red Cell Distribution Width 23.8 % (12.1-15.1)
[2020-02-07] MEDS: acetaminophen 325 mg Tablet 650 MG PO (05:06)
[2020-02-07 05:07] LABS: C Reactive Protein 38.9 mg/L (0.0-4.9)
[2020-02-07 05:13] LABS: Procalcitonin 0.09 ng/mL (0-0.5)
[2020-02-07 05:27] LABS: Alanine Aminotransferase 13 U/L (0-41); Albumin Level 2.8 g/dL (3.5-5.2); Alkaline Phosphatase 105 IU/L (40-130); Anion Gap 16.8 (5-19); Aspartate Amino Transferase 20 U/L (0-40); Blood Urea Nitrogen 26 mg/dL (8-23); Carbon Dioxide 19 mmol/L (22-29); Chloride 108 mmol/L (98-107); Globulin 3.8 g/dL (1.3-4.6); Glomerular Filtration Rate 67.6 mL/min (90-130); Glucose 113 mg/dL (65-115); Magnesium 1.5 mg/dL (1.7-2.3); Osmolality Calculated 286 mOsm/kg (285-295); Phosphorus 1.9 mg/dL (2.5-4.5); Potassium 4.8 mmol/L (3.5-5.1); Sodium 139 mmol/L (136-145); Total Bilirubin 0.4 mg/dL (0.15-1.2); Total Protein 6.6 g/dL (6.6-8.7)
[2020-02-07 05:55] LABS: INR 1.25 (0.8-1.2)
[2020-02-07 06:26] LABS: Glucose Point of Care 117 mg/dL (70-110)
[2020-02-07 07:26] VITALS: BP 137/90; PULSE 102; RESP 22; TEMP 37.1; O2SAT 94
[2020-02-07] MEDS: magnesium sulfate premix 2 GM/50 ML PIGGYBACK IV (08:00)
--- NOTE | 2020-02-07 08:06 | PC.NURSE ---
Dr blunt at bedside for assessment and discussion of POC and possible jail placement. patient is agreeable however he would like to go home. verbal orders for lyrica 75mg TID. spoke with patient about pain management.
[2020-02-07] MEDS: metoprolol tartrate 50 mg Tablet 75 MG PO (09:22)
[2020-02-07] MEDS: phosphorus 250 mg Tablet 500 MG PO (09:23)
[2020-02-07] MEDS: pregabalin 75 mg Capsule PO (09:23)
[2020-02-07] MEDS: OLANZapine 5 mg TABLET 2.5 MG PO (09:23)
[2020-02-07] MEDS: sodium bicarbonate 650 mg Tablet PO (09:23)
[2020-02-07] MEDS: pantoprazole DR 40 mg Tablet PO (09:23)
[2020-02-07] MEDS: nystatin cream 30 gm 1 APPLIC TOPICAL (09:24)
[2020-02-07] MEDS: nystatin powder 15 gm Btl 1 APPLIC TOPICAL (09:29)
[2020-02-07 11:37] LABS: Glucose Point of Care 112 mg/dL (70-110)
[2020-02-07 13:00] VITALS: BP 148/73; RESP 18; TEMP 36.7
[2020-02-07 13:13] VITALS: BP 137/90; PULSE 102; RESP 22; TEMP 37.1; O2SAT 94
--- NOTE | 2020-02-07 14:51 | PC.NURSE ---
Patient discharge to [facility] at this time discharge instructions and all belonging with patient transported by EMS.
--- NOTE | 2020-02-07 18:00 | PM.PN ---
Subjective Subjective: Interval history: No more pauses. Remained stable heart rate camarena heart rate in the 70s. Medications: Reviewed: Yes Medication Review Details: Current Medications Hydrocodone Bitart/Acetaminophen ([place] 10-325 Mg) 1 tab PO 5XD PRN PRN Reason: pain Last Admin: 02/04/20 20:09 Dose: 1 tab Documented by: Dextrose (D50w) 25 ml IVP ONCE PRN; Protocol PRN Reason: hypoglycemia protocol Dextrose (D50w) 50 ml IVP PRN PRN; Protocol PRN Reason: hypoglycemia protocol Glucagon (Glucagen) 1 mg IM ONCE PRN; Protocol PRN Reason: Adult Acute Hypoglycemia Prot. Haloperidol Lactate (Haldol Inj) 2 mg IM Q6H PRN PRN Reason: AGITATION Last Admin: 02/04/20 22:19 Dose: 2 mg Documented by: Heparin Sodium (Beef Lung) (Heparin) 5,000 unit SUBCUT Q8H MASOUD Last Admin: 02/05/20 00:01 Dose: 5,000 unit Documented by: Norepinephrine Bitartrate 4 mg (/ Dextrose) 254 mls @ 0 mls/hr IV .Q0M MASOUD; Protocol Last Titration: 02/03/20 02:45 Dose: 0 mcg/min, 0 mls/hr Documented by: Dextrose (D5w) 500 mls @ 100 mls/hr IV ONCE PRN; Protocol PRN Reason: Adult Acute Hypoglycemia Prot Amiodarone HCl 900 mg/Dextrose/ IV Miscellaneous Supplies 518 mls @ 0 mls/hr IV .Q0M MASOUD; Protocol Last Titration: 02/03/20 14:40 Dose: 0.5 mg/min, 17.3 mls/hr Documented by: Vancomycin HCl 2,000 mg/ (Sodium Chloride) 500 mls @ 250 mls/hr IV Q24H MASOUD Last Infusion: 02/05/20 00:33 Dose: Infused Documented by: Cefepime HCl 1,000 mg/ Sodium (Chloride) 50 mls @ 100 mls/hr IV Q12H MASOUD; Protocol Last Infusion: 02/05/20 05:54 Dose: Infused Documented by: Dexmedetomidine HCl 400 mcg/ (Sodium Chloride) 104 mls @ 0 mls/hr IV .Q0M MASOUD; Protocol Last Titration: 02/05/20 06:25 Dose: 0.1 mcg/kg/hr, 5 mls/hr Documented by: Insulin Aspart (Novolog) 0 unit SUBCUT TIDWM [facility]; Protocol Last Admin: 02/04/20 17:17 Dose: 2 unit Documented by: Lorazepam (Ativan) 1 mg IVP Q6H PRN PRN Reason: ANXIETY Last Admin: 02/04/20 20:11 Dose: 1 mg Documented by: Metoprolol Tartrate (Lopressor) 75 mg PO BID [facility] Last Admin: 02/04/20 17:17 Dose: 75 mg Documented by: Morphine Sulfate (Morphine) 4 mg IVP Q8H PRN PRN Reason: SEVERE PAIN Last Admin: 02/04/20 22:00 Dose: 4 mg Documented by: Nystatin (Nystatin Powder) 1 applic TOPICAL BID [facility] Last Admin: 02/04/20 17:17 Dose: 1 applic Documented by: Nystatin (Nystatin Cream) 1 applic TOPICAL BID [facility] Last Admin: 02/04/20 12:21 Dose: 1 appful Documented by: Pantoprazole Sodium (Protonix) 40 mg IVP DAILY [facility] Last Admin: 02/04/20 08:12 Dose: 40 mg Documented by: Sodium Bicarbonate (Sodium Bicarbonate) 650 mg PO TID [facility] Last Admin: 02/04/20 22:00 Dose: 650 mg Documented by: Tramadol HCl (Ultram) 50 mg PO QID PRN PRN Reason: PAIN Last Admin: 02/04/20 21:09 Dose: 50 mg Documented by: Vitals/I&O/Wt Last Vital Signs Temp 98.7 F 02/07/20 13:13 Pulse 102 H 02/07/20 13:13 Resp 22 H 02/07/20 13:13 BP 137/90 02/07/20 13:13 Pulse Ox 94 02/07/20 13:13 02/07/20 02/07/20 02/07/20 06:59 14:59 22:59 Intake Total 50 / 1230.205 Output Total 650 / 1150 Balance -600 / 80.205 Physical Exam Narrative: EXAM NARRATIVE: GENERAL: Patient is awake and oriented x2. NECK: No jugular vein distension. HEENT: No cyanosis. No icterus. No pallor. HEART: Regularly irregular S1 and S2. No murmur, rub or gallop. LUNGS: Clear to auscultate bilaterally. ABDOMEN: Soft, nontender and nondistended. Positive bowel sounds. No guarding, rebound or tenderness. CENTRAL NERVOUS SYSTEM: Grossly nonfocal. EXTREMITIES: Lower extremities without edema bilaterally. Urinary Catheter Management^: Min: Cath Placed During This Visit: yes Reason for Continuing Indwelling Catheter: Acute Urinary Retention or Obstruction Urinary Catheter Date of Insertion: 02/01/20 Urinary Catheter Time of Insertion: 22:20 Data : 02/07/20 03:30 02/07/20 03:30 Micro: Microbiology 02/01/20 20:38 Blood Culture - Final Blood NO GROWTH AFTER 5 DAYS 02/01/20 20:34 Blood Culture - Final Blood NO GROWTH AFTER 5 DAYS A&P Assessment and plan (1) Anemia: Stable continue to monitor Status: Acute (2) Bradycardia: No more bradycardic event. Will reduce metoprolol to 50 mg twice a day for 100 mg. Most likely patient has underlying severe obstructive sleep apnea advised to wear CPAP. Follow up with your cardiology clinic Status: Acute (3) Cellulitis: As per medicine. Status: Acute (4) Encephalopathy acute: Better and improved Status: Acute (5) Acute renal failure: Improved and resolved.Nephrology is on board Status: Acute Qualifiers: Acute renal failure type: unspecified Qualified Code(s): N17.9 - Acute kidney failure, unspecified (6) Congestive heart failure: Compensated. Status: Acute Qualifiers: Heart failure chronicity: acute on chronic Heart failure type: unspecified Qualified Code(s): I50.9 - Heart failure, unspecified (7) Atrial fibrillation: Rate controlled continue to monitor. Status: Acute Attestations Medical Necessity Statement*: Require continuation of hospitalization for above defined care. Coding Level of Care Code Established Pt Acute [employer]er [employer]ger for g Fwd Patient Type Established History Expanded Problem Focused Exam Expanded Problem Focused Medical Decision Making Moderate Complexity Diagnoses Anemia D64.9 Bradycardia R00.1 Cellulitis L03.90 Encephalopathy acute G93.40 Acute renal failure N17.9 Acute renal failure type: unspecified Congestive heart failure I50.9 Heart failure chronicity: acute on chronic Heart failure type: unspecified Atrial fibrillation I48.91
--- NOTE | 2020-02-13 11:05 | PM.DCS ---
Discharge Providers Date of Admission: 02/01/20 23:21 Date of Discharge: February 13, 2020 Attending Provider at Admission: Wes Millan MD Attending Provider at Discharge: Abdelrahman Yeh MD Primary Care Provider: LISHA Torres Diagnoses at Discharge Discharge Diagnosis (1) Anemia: Status: Resolved (2) Bradycardia: Status: Resolved (3) Cellulitis: Status: Resolved (4) Encephalopathy acute: Status: Resolved (5) Acute renal failure: Status: Resolved Qualifiers: Acute renal failure type: unspecified Qualified Code(s): N17.9 - Acute kidney failure, unspecified (6) Congestive heart failure: Status: Acute Problem details: 20-25% EF pulmonary hypertension Qualifiers: Heart failure chronicity: acute on chronic Heart failure type: unspecified Qualified Code(s): I50.9 - Heart failure, unspecified (7) Atrial fibrillation: Status: Acute Reason for Visit Reason for Visit: AMS Hospital Course Discharge Summary: This is a 64-year-old male with a past medical history of anasarca, severely reduced ejection fraction 20 to 25%, history of chronic catheterization, chronic atrial fibrillation, chronic anticoagulation with Coumadin, chronic kidney disease, who presents [facility] due to complaints of confusion. Patient was found to have hyperkalemia with EKG changes on admission, supratherapeutic INR, acute on chronic CKD, severe panniculitis and UTI, septic encephalopathy, hyperactive delirium Patient was admitted to the intensive care unit: -For his hyperkalemia, nephrology was consulted, received Kayexalate, -For his supratherapeutic INR and low blood pressures, received fluid hydration, FFP, vitamin K, INR was reversed -For his UTI and panniculitis received broad-spectrum antibiotics -For sepsis, he received broad-spectrum antibiotics, did require pressors at one time, eventually weaned off -He was monitored in the ICU for septic encephalopathy and hyperactive delirium For his acute on chronic CKD, nephrology was consulted, received IV fluids, no dialysis required -Patient's urine cultures grew Pseudomonas -For patient's hyperactive delirium, septic encephalopathy secondary to panniculitis, UTI, sepsis, dementia, ICU related delirium, opiate withdrawal he received Precedex, Haldol, at times required Zyprexa Patient's condition generally improved, sepsis resolved, delirium resolved, panniculitis resolved, he was moved to the cardiac stepdown unit, mentation improved back to baseline -Hyperkalemia resolved, kidney function improved, but patient was advised to hold Lasix for a week until renal function can be checked before resuming Lasix, patient is to follow-up with nephrology as outpatient -supra therapeutic INR resolved, INR discharge was 1.25, continue Coumadin 5 mg daily, recheck INR in 1 week -For patient's anemia, hemoglobin on discharge was 8.2, patient remains between 7-8, discharged on Protonix, Reglan, with monitoring of hemoglobin as outpatient, follow-up with general surgery for consideration for EGD and colonoscopy -For his sepsis secondary to UTI, panniculitis, he was discharged on Zyvox, Levaquin, Flagyl for 14 days -For his hyperactive delirium, he was discharged on olanzapine 2.5 mg p.o. twice daily -For his atrial fibrillation, patient did have episodes of sinus bradycardia, and sinus pauses, cardiology was consulted, recommended decreasing metoprolol to 50 twice daily, with close follow-up with cardiology as outpatient -For his type 2 diabetes mellitus discharged on sliding scale -Patient was discharged to half-way for short-term rehab Physical Exam Const: COMMON NORMALS: no acute distress and patient oriented x3 HENMT: COMMON NORMALS: normocephalic HEAD & SCALP: normocephalic Neck/C-Spine: COMMON NORMALS: no JVD Resp: COMMON NORMALS: normal respiratory effort, No retractions, No use of accessory muscles and clear to auscultation bilaterally AUSCULTATION: clear to auscultation bilaterally Cardio: COMMON NORMALS: no JVD, regular rate, regular rhythm, S1 normal heart sound present and S2 normal heart sound present RATE: regular rate RHYTHM: regular rhythm HEART SOUNDS: S1 normal heart sound present and S2 normal heart sound present GI: COMMON NORMALS: Normal to inspection, nondistended, normoactive bowel sounds present, Soft to palpation and non-tender PALPATION: Yes Soft to palpation Extremity: COMMON NORMALS: capillary refill normal, no clubbing, cyanosis or edema, no calf tenderness and no pedal edema Neuro: COMMON NORMALS: patient oriented x3 Psych: COMMON NORMALS: mental status grossly normal Urinary Catheter Management^: Min: Cath Placed During This Visit: yes Reason for Continuing Indwelling Catheter: Acute Urinary Retention or Obstruction Urinary Catheter Date of Insertion: 02/01/20 Urinary Catheter Time of Insertion: 22:20 Discharge Data Data Completed and Pending: Completed Studies During Hospitalization Category Date Time Status CT head wo con* 7 0450 Stat Cat Scan 02/01/20 20:02 Completed XR chest 1V wendy ble 71030 Routine Exams 02/04/20 07:32 Completed XR chest 1V wendy ble 03272 Stat Exams 02/01/20 20:02 Completed XR hip BI 2V wo/w pel 96986 Routine Exams 02/05/20 08:21 Completed CV ankle brachial index 21820 Routi ne Ultrasound 02/05/20 08:13 Completed CV echo complete* 10800 Routine Ultrasound 02/02/20 10:05 Completed US renal BI* 7677 0 Routine Ultrasound 02/02/20 04:52 Completed Vitals: Last Vital Signs Temp 98.7 F 02/07/20 13:13 Pulse 102 H 02/07/20 13:13 Resp 22 H 02/07/20 13:13 BP 137/90 02/07/20 13:13 Pulse Ox 94 02/07/20 13:13 Discharge Plan Discharge Patient Disposition: Home, Self-Care Condition: Stable Prescriptions: New hydrocodone-acetaminophen 10-325 mg Tablet 1 tab PO Q6H PRN (Reason: pain) 7 Days RF: 0 Novolog U-100 Insulin aspart 100 unit/mL Solution See Rx Instructions .ROUTE .COMPLEX Qty: 10 RF: 0 metoprolol tartrate 50 mg Tablet 50 mg PO BID 30 Days Qty: 60 RF: 0 nystatin 100,000 unit/gram Cream 1 applic topical BID 30 Days Qty: 30 RF: 0 Nyamyc 100,000 unit/gram Powder 1 applic topical BID 30 Days Qty: 60 RF: 0 olanzapine 5 mg Tablet 2.5 mg PO BID 30 Days Qty: 30 RF: 0 sodium bicarbonate 650 mg Tablet 650 mg PO BID 30 Days Qty: 60 RF: 0 pantoprazole 40 mg Tablet,Delayed Release (Dr/Ec) 40 mg PO BIDWM 30 Days Qty: 60 RF: 0 Carafate 1 gram tablet 1 gm PO BID 210 Days Qty: 60 RF: 0 Zyvox 600 mg tablet 600 mg PO BID 14 Days Qty: 28 RF: 0 Flagyl 500 mg tablet 500 mg PO Q8H 14 Days Qty: 42 RF: 0 Levaquin 750 mg tablet 750 mg PO Q24H 14 Days Qty: 14 RF: 0 Continued (DME) DME: Walker Unit See Rx Instructions .ROUTE .MEDSUPPLY Qty: 1 RF: 0 tramadol 50 mg Tablet 50 mg PO PER PKG DIR RF: 0 warfarin 5 mg Tablet 5 mg PO DAILY RF: 0 buspirone 15 mg Tablet 15 mg PO BID RF: 0 Changed pregabalin 150 mg Capsule 75 mg PO TID Qty: 0 RF: 0 Held furosemide 80 mg Tablet 80 mg PO DAILY RF: 0 Hold Instructions: Resume on 02/14/20. hold for one week Discontinued hydrocodone-acetaminophen 10-325 mg tablet 1 tab PO .FIVE TIMES DAILY PRN (Reason: pain) 30 Days Qty: 150 RF: 0 nystatin 100,000 unit/gram ointment 1 applic TOPICAL BID 30 Days Qty: 60 RF: 5 glyburide 2.5 mg Tablet 2.5 mg PO DAILY RF: 0 metoprolol tartrate 100 mg Tablet 100 mg PO BID RF: 0 duloxetine 20 mg Capsule,Delayed Release(Dr/Ec) 20 mg PO BID RF: 0 Discharge Orders: Discharge Order (Routine); Ordered 02/07/20 Ordered By: Abdelrahman Yeh Other Ambulatory Orders: Complete Blood Count w/Auto (WEEKLY) Timeframe: 20200214 Location: Determined by Patient Ordered By: Abdelrahman Yeh Complete Blood Count w/Auto (WEEKLY) Timeframe: 20200215 Location: Determined by Patient Ordered By: Abdelrahman Yeh Complete Blood Count w/Auto (WEEKLY) Timeframe: 20200216 Location: Determined by Patient Ordered By: Abdelrahman Yeh Complete Blood Count w/Auto (WEEKLY) Timeframe: 20200217 Location: Determined by Patient Ordered By: Abdelrahman Yeh Comprehensive Metabolic Panel (WEEKLY) Timeframe: 20200214 Facility: [facility] - Location: Lab - Main Lab Ordered By: Abdelrahman Yeh Comprehensive Metabolic Panel (WEEKLY) Timeframe: 20200215 Facility: [facility] - Location: Lab - Main Lab Ordered By: Abdelrahman Yeh Comprehensive Metabolic Panel (WEEKLY) Timeframe: 20200216 Facility: [facility] - Location: Lab - Main Lab Ordered By: Abdelrahman Yeh Comprehensive Metabolic Panel (WEEKLY) Timeframe: 20200217 Facility: [facility] - Location: Lab - Main Lab Ordered By: Abdelrahman Yeh Referrals: [facility] [Outside] FAITH Castanon, LIBRARY 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 [Primary Care Provider] - Noé Da Silva MD [Physician] - 1 month (colonscopy +egd, pannus surgery) Wes Saeed MD [Physician] - 2 weeks [facility], [Staff Physician] - 1-3 days Discharge Diet: Cardiac Discharge Activity: Resume usual activity Discharge Date/Time: 02/07/20 14:53 Discharge Attestations Time Spent in Discharge Care*: less than 30 min Quality Metrics Clinical Quality Measures During this hospital stay, did patient experience: None Coding Level of Care Code Acute Agriscience Instructor for Chg Fwd Exam Comprehensive Diagnoses Anemia D64.9 Bradycardia R00.1 Cellulitis L03.90 Encephalopathy acute G93.40 Acute renal failure N17.9 Acute renal failure type: unspecified Congestive heart failure I50.9 Heart failure chronicity: acute on chronic Heart failure type: unspecified Atrial fibrillation I48.91
== END 2020-02-07 14:53 | disposition home or self-care (01) | DRG 871 ==
LOC: ER 23:05 → ICU 23:45 → CSU 02-06 15:04
PROVIDERS: Emergency Medicine; Internal Medicine; Internal Medicine Nephrology; Admitting Provider Internal Medicine; PCP Nurse Practitioner Family; Visit Provider Family Medicine
DX: A41.9 Sepsis, unspecified organism (principal); G93.41 Metabolic encephalopathy; N17.9 Acute kidney failure, unspecified; E87.2 Acidosis; I48.20 Chronic atrial fibrillation, unspecified; L03.319 Cellulitis of trunk, unspecified; N39.0 Urinary tract infection, site not specified; Z68.43 Body mass index [BMI] 50.0-59.9, adult; E87.5 Hyperkalemia; M79.3 Panniculitis, unspecified; I50.9 Heart failure, unspecified; I27.20 Pulmonary hypertension, unspecified; R00.1 Bradycardia, unspecified; Z79.01 Long term (current) use of anticoagulants; N18.9 Chronic kidney disease, unspecified; D63.1 Anemia in chronic kidney disease; E11.22 Type 2 diabetes mellitus with diabetic chronic kidney disease; Z79.84 Long term (current) use of oral hypoglycemic drugs; F41.9 Anxiety disorder, unspecified; G89.29 Other chronic pain; E66.01 Morbid (severe) obesity due to excess calories; M54.5 Low back pain
CPT/HCPCS: 12345; 36415; 36416; 36430; 36600; 51702; 70450; 71045; 73521; 76770; 80048; 80051; 80053; 80202; 80306; 80307; 81001; 82009; 82140; 82274; 82550; 82570; 82728; 82810; 82962; 83540; 83550; 83605; 83690; 83735; 83880; 83883; 83986; 84100; 84145; 84300; 84443; 84484; 84540; 84550; 85014; 85018; 85025; 85045; 85610; 86140; 86850; 86900; 86920; 86927; 87040; 87077; 87086; 87186; 93005; 93306; 93922; 94640; 96372; 96375; 97110; 97161; 97166; 97530; 97535; 99284; C9113; J0282; J0610; J0692; J0743; J1170; J1630; J1644; J1815; J2060; J2270; J3010; J3370; J3430; J3475; J3486; J3490; J7030; J7040; J7050; J7060; J7611; P9016; P9017; P9040; Q3014

== ENCOUNTER → 2020-03-08 09:59 | Outpatient (BNVA) | payer MEDICARE, SELFPAY | PROVIDERS: PCP Nurse Practitioner Family; Visit Provider Anesthesiology | DX: G89.29 Other chronic pain (principal); M54.42 Lumbago with sciatica, left side; M54.41 Lumbago with sciatica, right side; Z79.891 Long term (current) use of opiate analgesic | CPT/HCPCS: 99213; 99214 ==

== ENCOUNTER 2020-04-05 09:18 | Outpatient (CLI) | payer MEDICARE, SELFPAY | END 2020-04-05 09:19 | disposition home or self-care (01) | LOC: WOUND 09:19 | PROVIDERS: PCP Nurse Practitioner Family; Visit Provider Surgery | DX: E11.621 Type 2 diabetes mellitus with foot ulcer (principal); L97.512 Non-pressure chronic ulcer of other part of right foot with fat layer exposed | CPT/HCPCS: 97597; G0463 ==

== ENCOUNTER 2020-04-12 09:24 | Outpatient (CLI) | payer MEDICARE, SELFPAY | END 2020-04-12 09:25 | disposition home or self-care (01) | PROVIDERS: PCP Nurse Practitioner Family; Visit Provider Surgery | DX: Z09 Encounter for follow-up examination after completed treatment for conditions other than malignant neoplasm (principal) | CPT/HCPCS: 99212 ==

== ENCOUNTER → 2020-05-07 10:51 | Outpatient (BNVA) | payer MEDICARE, SELFPAY | PROVIDERS: PCP Nurse Practitioner Family; Visit Provider Anesthesiology | DX: G89.29 Other chronic pain (principal); M54.5 Low back pain; Z79.891 Long term (current) use of opiate analgesic | CPT/HCPCS: 99213; 99214 ==

== ENCOUNTER 2020-05-14 22:51 | Inpatient (IN) | payer MEDICARE, SELFPAY ==
--- NOTE | 2020-05-14 22:59 | XRR_ITS ---
PROCEDURE INFORMATION: Exam: XR Chest, 1 View Exam date and time: 05/14/2020 11:28 PM Age: 65 years old Clinical indication: Dyspnea TECHNIQUE: Imaging protocol: XR of the chest Views: 1 view. COMPARISON: CR XR chest 1V portable [id number] 02/04/2020 9:58 AM FINDINGS: Lungs: Bilateral central bronchial wall thickening and haziness. Bibasilar airspace disease, more so on the left. Pleural space: No right pleural effusion. Possible trace left pleural effusion. No pneumothorax. Heart/Mediastinum: The cardiac silhouette is enlarged. The mediastinal contours are normal. Bones/joints: No acute osseous abnormality. XR/XR chest 1V portable [id number] IMPRESSION: Findings which could be due to congestive heart failure with central bronchial/interstitial edema.
--- NOTE | 2020-05-14 23:00 | ECG_ITS ---
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 Measurements Intervals [place] Rate: 128 P: DC: -1 QRS: -45 QRSD: 94 T: 55 QT: 309 QTc: 452 Interpretive Statements ATRIAL FIBRILLATION WITH RAPID VENTRICULAR RESPONSE LOW QRS VOLTAGE IN PRECORDIAL LEADS [QRS DEFLECTION < 1.0 mV IN CHEST LEADS] INFERIOR MYOCARDIAL INFARCTION , PROBABLY OLD [40+ ms Q WAVE AND/OR ST/T ABNORMALITY IN II/aVF] ANTEROSEPTAL MYOCARDIAL INFARCTION , PROBABLY OLD [40+ ms Q WAVE IN V1-V4] Compared to ECG 02/02/2020 22:51:40 Aberrant conduction of supraventricular beat(s) no longer present Ventricular premature complex(es) no longer present Myocardial infarct finding still present Electronically Signed On 05-16-2020 20:36:37 CDT by Caesar Webber M.D. [id number]
[2020-05-14 23:01] VITALS: BP 152/76; PULSE 140; RESP 26; TEMP 36.9; O2SAT 95; BMI 57.7
[2020-05-14 23:04] VITALS: BP 152/76; PULSE 131; RESP 25; O2SAT 95
[2020-05-14 23:19] VITALS: BP 152/76; PULSE 131; RESP 26; O2SAT 95
[2020-05-14 23:27] LABS: Basophils # 0.2 10^3/uL (0.0-0.1); Basophils % 0.7 %; Eosinophils # 0.1 10^3/uL (0.0-0.8); Eosinophils % 0.3 %; Hematocrit 27.7 % (42.0-52.0); Hemoglobin 7.7 g/dL (11.7-16.6); Lymphocytes # 0.2 10^3/uL (0.8-4.8); Lymphocytes % 0.8 %; Mean Corpuscular HGB Conc 27.8 g/dL (30.0-36.0); Mean Corpuscular Hemoglobin 19.5 pg (28.0-34.0); Mean Corpuscular Volume 70.3 fL (80-94); Mean Platelet Volume 10.2 fL (7.4-10.4); Monocytes # 0.2 10^3/uL (0.2-0.9); Monocytes % 0.9 %; Neutrophils # 22.46 10^3/uL (1.8-7.7); Neutrophils % 96.7 %; Nucleated Red Blood Cells % 0.2 %; Platelet Count 510 10^3/cmm (130-400); Red Blood Count 3.94 10^6/uL (4.1-5.3); Red Cell Distribution Width 19.7 % (12.1-15.1); White Blood Count 23.2 10^3/uL (4.0-10.0)
[2020-05-14 23:34] VITALS: BP 120/73; PULSE 112; RESP 28; O2SAT 95
[2020-05-14 23:38] LABS: Partial Thromboplastin Time 48.5 SECONDS (23.9-36.7)
[2020-05-14 23:50] LABS: Troponin(5th) Baseline 31 ng/L (0-15)
[2020-05-14 23:57] LABS: Alanine Aminotransferase 11 U/L (0-41); Albumin Level 3.3 g/dL (3.5-5.2); Alkaline Phosphatase 209 IU/L (40-130); Anion Gap 16.8 (5-19); Aspartate Amino Transferase 18 U/L (0-40); Blood Urea Nitrogen 18 mg/dL (8-23); Calcium 8.5 mg/dL (8.5-10.5); Carbon Dioxide 25 mmol/L (22-29); Chloride 97 mmol/L (98-107); Globulin 3.4 g/dL (1.3-4.6); Glucose 145 mg/dL (65-115); Magnesium 1.6 mg/dL (1.7-2.3); NT Pro B Type Natriuretic Pept 4331 pg/mL (0-125); Osmolality Calculated 284 mOsm/kg (285-295); Potassium 3.8 mmol/L (3.5-5.1); Sodium 135 mmol/L (136-145); Thyroid Stimulating Hormone 1.62 uIU/mL (0.27-4.20); Total Bilirubin 1.1 mg/dL (0.15-1.2); Total Protein 6.7 g/dL (6.6-8.7)
[2020-05-15] VITALS (18 sets, daily range): BP systolic 98–144; BP diastolic 57–95; PULSE 79–125; RESP 19–31; TEMP 36.3–36.9; O2SAT 92–99
--- NOTE | 2020-05-15 00:14 | PC.NURSE ---
Patient not given IV fluid per physician for sepsis protocol due to patient in fluid overload.
[2020-05-15 00:22] LABS: ABG PCO2 33.3 mmHg (35-45); ABG PH Result 7.51 (7.35-7.45); Arterial Blood Gas Hematocrit 24.1 % (42-52); Base Excess ABG 3.4 mmol/L (-2.0-2.0); Blood Gas Allen Test Pos; Blood Gas Sample Site Radial, right; Blood Gas Sample Type Arterial; HCO3 ABG 26.5 mmol/L (22-26); Oxygen Device NC
[2020-05-15 00:26] LABS: Free T4 Free Thyroxine 1.31 ng/dL (0.82-1.77)
[2020-05-15] MEDS: FUROsemide 10 mg/mL SDV 4mL 40 MG IVP (00:33)
[2020-05-15 00:57] LABS: Lactic Sepsis W/Reflex 1.8 mmol/L (0.5-2.2)
--- NOTE | 2020-05-15 01:00 | ECG_ITS ---
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 Measurements Intervals [place] Rate: 117 P: MO: -1 QRS: -37 QRSD: 85 T: 24 QT: 329 QTc: 460 Interpretive Statements ATRIAL FIBRILLATION WITH RAPID VENTRICULAR RESPONSE WITH ABERRANT CONDUCTION OR VENTRICULAR PREMATURE COMPLEXES LOW QRS VOLTAGE [QRS DEFLECTION < 0.5/1.0 mV IN LIMB/CHEST LEADS] INFERIOR MYOCARDIAL INFARCTION , PROBABLY OLD [40+ ms Q WAVE AND/OR ST/T ABNORMALITY IN II/aVF] ANTEROSEPTAL MYOCARDIAL INFARCTION , OF INDETERMINATE AGE [40+ ms Q WAVE IN V1-V4] Compared to ECG 05/14/2020 23:07:17 Ventricular premature complex(es) now present Aberrant conduction of supraventricular beat(s) now present Myocardial infarct finding still present Electronically Signed On 05-16-2020 20:54:49 CDT by Caesar Webber M.D. [id number]
[2020-05-15 01:09] LABS: Troponin 5 2HR 34.92 ng/L (0-15); Troponin 5 2HR Delta 3.92 ABS# (0-10)
[2020-05-15] MEDS: magnesium sulfate premix 2 GM/50 ML PIGGYBACK IV (01:31)
--- NOTE | 2020-05-15 01:50 | ED_ITS ---
HPI - SOB/Dyspnea General: Chief Complaint: Shortness of Breath/Dyspnea Stated Complaint: SOB Time Seen by Provider: 05/14/20 22:55 Source: patient, family and EMS Mode of arrival: EMS Limitations: no limitations History of Present Illness: HPI Narrative: Jacob is a 65-year-old male who comes in complaining of dyspnea. He states he is retaining fluid and has orthopnea. He denies cough or fever. Patient has history of A. fib and takes Coumadin for this. His heart rate was extremely rapid tonight and he felt like his A. fib was out of control. He is denying any chest pain. Patient states that he overall just feels poorly. Denies any abdominal pain or back pain. Does have some urinary discomfort. Patient is morbidly obese and he is cared for at home by his . He does say that he has some yeast infection under the skin of his pannus. Patient denies any fevers at home. He denies any possibility of COVID-19 exposure. Associated symptoms: Reports palpitations; Deny abdominal pain, chest congestion, chest pain, diaphoresis, dizziness, extremity pain, fever(s), hemoptysis, lightheadedness, nausea, syncope or vomiting Review of Systems Const: Denies: fever(s), chills, body aches, fatigue, malaise or diaphoresis Eyes: Denies: change in vision, blurry vision, photophobia, eye discomfort, eye discharge, eye redness or yellow eyes ENMT: Denies: throat pain, odynophagia, hoarseness, swelling of lips/tongue, ear or mastoid pain, ear discharge, change in hearing or nasal discharge Card: Reports: palpitations and swelling of feet/ankles; Denies: chest pain, irregular heart rhythm, edema, lightheadedness, syncope, pre-syncope or dyspnea on exertion Resp: Reports: dyspnea; Denies: productive cough, non-productive cough, wheezing, hemoptysis or chest congestion GI: Denies: abdominal pain, nausea, vomiting, hematemesis, coffee ground emesis, heartburn, diarrhea, constipation, GI cramping, hematochezia or melena : Denies: flank pain, dysuria, urinary frequency, urinary urgency or hematuria Musc: Denies: neck pain, back pain, extremity pain, extremity swelling, joint pain, joint swelling, joint redness, joint warmth or joint stiffness Skin/Breast: Denies: rash, pruritus, erythema, skin pain or skin tenderness Neuro: Denies: headache(s), numbness in extremities, weakness in extremities, sensory changes, lack of coordination, difficulty walking, dizziness, vertigo, confusion, Slurred speech present or seizure-like activity Glen/Lymph: Denies: easy bruising, easy bleeding, petechiae, purpura or enlarged lymph nodes All/Imm: Denies: urticaria, throat swelling, tongue swelling, facial swelling or acute wheezing PFSH ED PFSH: Medical History Anasarca Anxiety Atrial fibrillation Cardiomyopathy Chronic bilateral low back pain Chronic idiopathic pain syndrome Chronic kidney disease (CKD) Congestive heart failure 20-25% EF pulmonary hypertension Diabetes mellitus Encounter for long-term opiate analgesic use GERD (gastroesophageal reflux disease) History of cardioversion Failed electrical cardioversion in 2011 for A. fib Morbid obesity Venous stasis Warfarin anticoagulation Surgical History S/P ankle fusion LEFT S/P cholecystectomy Family History Father Diabetes Social History Smoking and tobacco status: never smoked Second hand smoke exposure: No Alcohol intake: never Marital status: History of recent travel: No Physical Exam Const: COMMON NORMALS: no acute distress, patient oriented x3, no limitations and alert GENERAL APPEARANCE: cooperative HENMT: COMMON NORMALS: normocephalic, atraumatic, external ears normal, EAC's normal and Normal external nose present HEAD & SCALP: normal to inspection, normocephalic and atraumatic FACE & SINUS: normal facial exam and face symmetric NOSE: Normal external nose present and Normal nares present EXTERNAL EAR: Yes external ears normal EXTERNAL AUDITORY CANAL: EAC's normal MOUTH: Normal oral and palatal mucosa present, lip normal and tongue normal Eye: COMMON NORMALS: Equal, round and reactive pupils present and conjunctivae normal GENERAL EYE: appearance normal, both eyes and all related structures ALIGNMENT: Yes alignment normal PERIORBITAL: periorbital findings normal EYELID: eyelids normal CONJUNCTIVA: Yes conjunctivae normal SCLERA: sclerae normal PUPIL: Yes Equal, round and reactive pupils present Neck/C-Spine: COMMON NORMALS: full ROM, no lymphadenopathy, supple, no meningeal signs and no JVD GENERAL: Yes normal visual inspection and Yes trachea midline Chest: COMMONS NORMALS: normal inspection of the chest and normal palpation of entire chest wall Resp: COMMON NORMALS: normal respiratory effort, No retractions, No use of accessory muscles and clear to auscultation bilaterally EFFORT & INSPECTION: Yes able to speak in complete sentences and Yes symmetric chest movement AUSCULTATION: clear to auscultation bilaterally, no crackles, rales, rhonchi and no wheezes Cardio: COMMON NORMALS: no JVD, regular rate, regular rhythm, S1 normal heart sound present and S2 normal heart sound present RATE: regular rate RHYTHM: regular rhythm HEART SOUNDS: S1 normal heart sound present, S2 normal heart sound present, no click, no gallops, no murmurs and no rubs GI: COMMON NORMALS: Soft to palpation and No hepatosplenomegaly present PALPATION: Yes Soft to palpation, No Tenderness to palpation present (GI), No Guarding due to palpation present (GI), No Rigid due to palpation, Yes No hepatosplenomegaly present, No Hernia present, No Palpable mass present, No Pulsatile mass present and Yes Other GI palpation findings present (Candidal yeast infection under the pannus.) : COMMON NORMALS: Yes no CVA tenderness BLADDER/KIDNEY EXAM: Yes no CVA tenderness Back/Pelvis: COMMON NORMALS: no CVA tenderness, thoracic and lumbar spine normal to inspection, no thoracic nor lumbar tenderness and thoraco-lumbar ROM normal Extremity: COMMON NORMALS: normal to inspection, full ROM, capillary refill normal, no joint enlargement, no clubbing, cyanosis or edema and no calf tenderness Neuro: COMMON NORMALS: patient oriented x3, CN's II-XII intact bilaterally, moves all extremities, no focal motor deficits and no sensory deficits noted SENSORIUM/ORIENTATION: Yes alert MENINGEAL SIGNS: Yes no meningeal signs SPEECH: speech normal Psych: COMMON NORMALS: mental status grossly normal, Normal thought process present, cooperative, normal affect, speech normal and activity/motor behavior normal SPEECH: Yes normal speech THOUGHT PROCESS: Normal thought process present Skin: COMMON NORMALS: no rashes or lesions noted, turgor normal, no jaundice, no petechiae and no mottling GENERAL SKIN EXAM: no rashes or lesions noted and turgor normal Course Vital Signs: Vital signs: Vital Signs Temperature 98.5 F 05/14/20 23:01 Pulse Rate 102 H 05/15/20 04:15 Respiratory Rate 26 H 05/15/20 04:15 Blood Pressure 144/71 05/15/20 04:15 Pulse Oximetry 95 05/15/20 04:15 MDM - SOB/Dyspnea MDM Narrative: Medical decision making narrative: Mr. Ibarra is a nice 65-year- old male comes in with shortness of breath. Believe shortness of breath secondary to A. fib with RVR mild congestive heart failure. Patient has a UTI and meets criteria for sepsis. He has been given empiric antibiotics and he was started on Cardizem to improve his heart rate. This time is doing much better and his pressure stable. Case was endorsed to Dr. Millan he agrees to admit the patient for further evaluation and care. Lab Data: Attestation: I reviewed the patient's lab results. Labs: Lab Results 05/14/20 05/14/20 05/14/20 Range/Units 00:31 23:14 23:14 WBC 23.2 H (4.0-10.0) 10^3/ uL RBC 3.94 L (4.1-5.3) 10^6/u L Hgb 7.7 L (11.7-16.6) g/dL Hct 27.7 L (42.0-52.0) % MCV 70.3 L (80-94) fL MCH 19.5 L (28.0-34.0) pg MCHC 27.8 L (30.0-36.0) g/dL RDW 19.7 H (12.1-15.1) % Plt Count 510 H (130-400) 10^3/c mm MPV 10.2 (7.4-10.4) fL Neut % (Auto) 96.7 % Lymph % (Auto) 0.8 % [place] % (Auto) 0.9 % Eos % (Auto) 0.3 % Baso % (Auto) 0.7 % Neut # (Auto) 22.46 H (1.8-7.7) 10^3/u L Lymph # (Auto) 0.2 L (0.8-4.8) 10^3/u L [place] # (Auto) 0.2 (0.2-0.9) 10^3/u L Eos # (Auto) 0.1 (0.0-0.8) 10^3/u L Baso # (Auto) 0.2 H (0.0-0.1) 10^3/u L Nucleated RBC % (a uto) 0.2 % Nucleated RBCs # 0.0 /100WBC PT 28.80 H (12.1-14.9) SECO NDS INR 2.60 H (0.8-1.2) APTT 48.5 H (23.9-36.7) SECO NDS Specimen Type Sample Site ABG pH (7.35-7.45) ABG pCO2 (35-45) mmHg ABG pO2 (80.0-100.0) mmH g ABG HCO3 (22-26) mmol/L ABG Base Excess (-2.0-2.0) mmol/ L Gautam Test Hematocrit (42-52) % O2 Delivery Device O2 Liters/Min % Lunchroom Mother ID Sodium (136-145) mmol/L Potassium (3.5-5.1) mmol/L Chloride (98-107) mmol/L Carbon Dioxide (22-29) mmol/L Anion Gap (5-19) BUN (8-23) mg/dL Creatinine (0.7-1.2) mg/dL GFR Calculation (90-130) mL/min Glucose (65-115) mg/dL Calculated Osmolal ity (285-295) mOsm/k g Lactic Acid 1.8 (0.5-2.2) mmol/L Calcium (8.5-10.5) mg/dL Magnesium (1.7-2.3) mg/dL Total Bilirubin (0.15-1.2) mg/dL AST (0-40) U/L ALT (0-41) U/L Alkaline Phosphata se (40-130) IU/L Troponin T Baselin e (0-15) ng/L Troponin T 120 Min [place] (0-15) ng/L Delta Troponin T (0-10) ABS# NT-Pro-B Natriuret Pep (0-125) pg/mL Total Protein (6.6-8.7) g/dL Albumin (3.5-5.2) g/dL Globulin (1.3-4.6) g/dL TSH (0.27-4.20) uIU/ mL Free T4 (0.82-1.77) ng/d L Urine Color (Yellow) Urine Appearance (CLEAR) Urine pH (5-7) Ur Specific Gravit y (1.005-1.030) Urine Protein (Negative) Urine Glucose (UA) (Normal) Urine Ketones (Negative) Urine Blood (Negative) Urine Nitrate (Negative) Urine Bilirubin (Negative) Urine Urobilinogen (Negative) mg/dL Ur Leukocyte Christa ase (Negative) Urine RBC (0-2) /hpf Urine WBC (0-5) /hpf Ur Squamous Epith Cells (0-5) /hpf Amorphous Sediment Urine Bacteria (NONE) /hpf 05/14/20 05/14/20 05/14/20 Range/Units 23:14 23:14 23:36 WBC (4.0-10.0) 10^3/ uL RBC (4.1-5.3) 10^6/u L Hgb (11.7-16.6) g/dL Hct (42.0-52.0) % MCV (80-94) fL MCH (28.0-34.0) pg MCHC (30.0-36.0) g/dL RDW (12.1-15.1) % Plt Count (130-400) 10^3/c mm MPV (7.4-10.4) fL Neut % (Auto) % Lymph % (Auto) % [place] % (Auto) % Eos % (Auto) % Baso % (Auto) % Neut # (Auto) (1.8-7.7) 10^3/u L Lymph # (Auto) (0.8-4.8) 10^3/u L [place] # (Auto) (0.2-0.9) 10^3/u L Eos # (Auto) (0.0-0.8) 10^3/u L Baso # (Auto) (0.0-0.1) 10^3/u L Nucleated RBC % (a uto) % Nucleated RBCs # /100WBC PT (12.1-14.9) SECO NDS INR (0.8-1.2) APTT (23.9-36.7) SECO NDS Specimen Type Arterial Sample Site Radial, right ABG pH 7.51 H (7.35-7.45) ABG pCO2 33.3 L (35-45) mmHg ABG pO2 108.0 H (80.0-100.0) mmH g ABG HCO3 26.5 H (22-26) mmol/L ABG Base Excess 3.4 H (-2.0-2.0) mmol/ L Gautam Test Pos Hematocrit 24.1 L (42-52) % O2 Delivery Device Nc O2 Liters/Min 2.0 % Lunchroom Mother ID Hinja Sodium 135 L (136-145) mmol/L Potassium 3.8 (3.5-5.1) mmol/L Chloride 97 L (98-107) mmol/L Carbon Dioxide 25 (22-29) mmol/L Anion Gap 16.8 (5-19) BUN 18 (8-23) mg/dL Creatinine 1.2 (0.7-1.2) mg/dL GFR Calculation 61.0 L (90-130) mL/min Glucose 145 H (65-115) mg/dL Calculated Osmolal ity 284 L (285-295) mOsm/k g Lactic Acid (0.5-2.2) mmol/L Calcium 8.5 (8.5-10.5) mg/dL Magnesium 1.6 L (1.7-2.3) mg/dL Total Bilirubin 1.1 (0.15-1.2) mg/dL AST 18 (0-40) U/L ALT 11 (0-41) U/L Alkaline Phosphata se 209 H (40-130) IU/L Troponin T Baselin e 31 H (0-15) ng/L Troponin T 120 Min [place] (0-15) ng/L Delta Troponin T (0-10) ABS# NT-Pro-B Natriuret Pep 4331 H (0-125) pg/mL Total Protein 6.7 (6.6-8.7) g/dL Albumin 3.3 L (3.5-5.2) g/dL Globulin 3.4 (1.3-4.6) g/dL TSH 1.62 (0.27-4.20) uIU/ mL Free T4 1.31 (0.82-1.77) ng/d L Urine Color (Yellow) Urine Appearance (CLEAR) Urine pH (5-7) Ur Specific Gravit y (1.005-1.030) Urine Protein (Negative) Urine Glucose (UA) (Normal) Urine Ketones (Negative) Urine Blood (Negative) Urine Nitrate (Negative) Urine Bilirubin (Negative) Urine Urobilinogen (Negative) mg/dL Ur Leukocyte Christa ase (Negative) Urine RBC (0-2) /hpf Urine WBC (0-5) /hpf Ur Squamous Epith Cells (0-5) /hpf Amorphous Sediment Urine Bacteria (NONE) /hpf 05/15/20 05/15/20 Range/Units 00:31 01:20 WBC (4.0-10.0) 10^3/ uL RBC (4.1-5.3) 10^6/u L Hgb (11.7-16.6) g/dL Hct (42.0-52.0) % MCV (80-94) fL MCH (28.0-34.0) pg MCHC (30.0-36.0) g/dL RDW (12.1-15.1) % Plt Count (130-400) 10^3/c mm MPV (7.4-10.4) fL Neut % (Auto) % Lymph % (Auto) % [place] % (Auto) % Eos % (Auto) % Baso % (Auto) % Neut # (Auto) (1.8-7.7) 10^3/u L Lymph # (Auto) (0.8-4.8) 10^3/u L [place] # (Auto) (0.2-0.9) 10^3/u L Eos # (Auto) (0.0-0.8) 10^3/u L Baso # (Auto) (0.0-0.1) 10^3/u L Nucleated RBC % (a uto) % Nucleated RBCs # /100WBC PT (12.1-14.9) SECO NDS INR (0.8-1.2) APTT (23.9-36.7) SECO NDS Specimen Type Sample Site ABG pH (7.35-7.45) ABG pCO2 (35-45) mmHg ABG pO2 (80.0-100.0) mmH g ABG HCO3 (22-26) mmol/L ABG Base Excess (-2.0-2.0) mmol/ L Gautam Test Hematocrit (42-52) % O2 Delivery Device O2 Liters/Min % Lunchroom Mother ID Sodium (136-145) mmol/L Potassium (3.5-5.1) mmol/L Chloride (98-107) mmol/L Carbon Dioxide (22-29) mmol/L Anion Gap (5-19) BUN (8-23) mg/dL Creatinine (0.7-1.2) mg/dL GFR Calculation (90-130) mL/min Glucose (65-115) mg/dL Calculated Osmolal ity (285-295) mOsm/k g Lactic Acid (0.5-2.2) mmol/L Calcium (8.5-10.5) mg/dL Magnesium (1.7-2.3) mg/dL Total Bilirubin (0.15-1.2) mg/dL AST (0-40) U/L ALT (0-41) U/L Alkaline Phosphata se (40-130) IU/L Troponin T Baselin e (0-15) ng/L Troponin T 120 Min [place] 34.92 H (0-15) ng/L Delta Troponin T 3.92 (0-10) ABS# NT-Pro-B Natriuret Pep (0-125) pg/mL Total Protein (6.6-8.7) g/dL Albumin (3.5-5.2) g/dL Globulin (1.3-4.6) g/dL TSH (0.27-4.20) uIU/ mL Free T4 (0.82-1.77) ng/d L Urine Color Dark yellow (Yellow) Urine Appearance Cloudy (CLEAR) Urine pH 5 (5-7) Ur Specific Gravit y 1.015 (1.005-1.030) Urine Protein 1+ H (Negative) Urine Glucose (UA) Norm (Normal) Urine Ketones 1+ H (Negative) Urine Blood 3+ H (Negative) Urine Nitrate Negative (Negative) Urine Bilirubin 1+ H (Negative) Urine Urobilinogen 4 H (Negative) mg/dL Ur Leukocyte Christa ase 2+ H (Negative) Urine RBC 25-40 H (0-2) /hpf Urine WBC Too numerous to c nt H (0-5) /hpf Ur Squamous Epith Cells 0-4 H (0-5) /hpf Amorphous Sediment Not Reportable Urine Bacteria 3+ H (NONE) /hpf Imaging Data^: CXR: Attestation: I personally reviewed and interpreted this imaging study as follows: My impression: Cardiomegaly, mild pulmonary vascular congestion EKG Data^: EKG 1: Attestation: I personally reviewed and interpreted this EKG as follows: EKG Interpretation Date: 05/14/20 EKG interpretation time: 23:07 Interpretation: Atrial fibrillation with a rapid ventricular response at 128 beats a minute, left axis deviation, no acute ST-T wave changes. EKG 2: Attestation: I personally reviewed and interpreted this EKG as follows: EKG Interpretation Date: 05/15/20 EKG interpretation time: 01:18 Interpretation: Atrial fibrillation 117 beats a minute, left axis deviation, PVCs noticed. No acute ST or T wave changes. Discharge Plan Discharge Patient Disposition: Admitted As Inpatient Admit Provider: Wes Millan Clinical Impression: Sepsis, Acute UTI, Atrial fibrillation with rapid ventricular response Condition: Stable Coding Level of Care Code ED Vp Ad Products And Planning for Chg Fwd Exam Comprehensive
[2020-05-15 02:26] LABS: Add Urine Microscopic? YES; Bilirubin Urine 1+ (Negative); Blood Urine 3+ (Negative); Glucose Urine UA Norm (Normal); Ketones Urine 1+ (Negative); Leukocyte Esterase Urine 2+ (Negative); Nitrate Urine Negative (Negative); Protein Urine 1+ (Negative); Specific Gravity, Urine 1.015 (1.005-1.030); Urine Appearance Cloudy (CLEAR); Urine Color Dark Yellow (Yellow); Urobilinogen Urine 4 mg/dL (Negative); pH Urine 5 (5-7)
[2020-05-15 02:27] LABS: Add Urine Culture? Yes; Bacteria Urine 3+ /hpf; RBC Urine 25-40 /hpf (0-2); Squamous Epithelial Cell Urine 0-4 /hpf (0-5); WBC Urine TOO NUMEROUS TO CNT /hpf (0-5)
--- NOTE | 2020-05-15 03:09 | P.HP_ITS ---
Providers/Chief Complaint Primary Care Provider: LISHA Torres Chief Complaint: SOB History of Present Illness Jacob Ibarra is a 65 year old male anasarca, improved ejection fraction congestive heart failure (EF 55% improved from 30%), chronic atrial fibrillation, chronic anticoagulation with Coumadin because of his BMI, chronic kidney disease, came in for chief complaint of shortness of breath. is at the bedside who is endorsing that since his previous admission he has not improved at all, at home he mostly stays in his recliner and only gets up to use the bathroom, despite using nystatin powder his abdominal pannus infection does not seem to get better, is stating that his skin was much better when he was at senior care getting daily wound care. At home he does not do much and is eating a sedentary lifestyle. Today he decided to come to the hospital because of increased heart rate in the 150s and shortness of breath. He has not noticed recent fever, diarrhea, vomiting, excessive sputum production or cough.` On previous admission he was treated for hyperactive delirium, urine culture grew Pseudomonas pansensitive, he has been treated for paniculitis as well, s/p transfusion with 1 unit PRBC, patient refused colonoscopy for iron deficiency anemia work-up Diagnosis in the ER reveals sepsis secondary to UTI, he was given vancomycin and imipenem, hemoglobin at baseline, Review of Systems Const: Reports: body aches, change in appetite, fatigue and malaise; Denies: fever(s) or chills Eyes: Denies: change in vision ENMT: Denies: throat pain Card: Reports: swelling of feet/ankles and orthopnea; Denies: chest pain Resp: Reports: dyspnea; Denies: productive cough or non-productive cough GI: Reports: abdominal pain; Denies: nausea or vomiting : Denies: flank pain Musc: Reports: neck pain, joint swelling, joint warmth and joint stiffness Skin/Breast: Reports: rash and lesions (Panniculitis, lower extremity venous stasis dermatitis,) Neuro: Denies: headache(s) Psych: Reports: depression Endo: Denies: polyuria Glen/Lymph: Denies: easy bruising All/Imm: Denies: urticaria Medications/Allergies Home Medications Medication Instructions Recorded Confirmed Last Taken Type walker #1 each 11/17/19 05/07/20 Unknown Rx buspirone 15 mg PO BID 02/07/20 05/07/20 Unknown History insulin aspart U-100 [Novolog See Rx Instructions .ROUTE 02/07/20 05/07/20 Unknown Rx U-100 Insulin aspart] .COMPLEX #10 ml ondansetron HCl 4 mg tablet 4 mg PO Q6H PRN 03/08/20 05/07/20 Unknown History pregabalin 75 mg capsule 75 mg PO TID 30 Days #90 cap 03/08/20 05/07/20 Unknown Rx nystatin 100,000 unit/gram topical 1 applic TOPICAL TID #60 gm 03/19/20 05/07/20 Unknown Rx powder olanzapine 2.5 mg tablet 2.5 mg PO BID #60 tab 03/29/20 05/07/20 Unknown Rx pantoprazole 40 mg tablet,delayed 40 mg PO BID 30 Days #60 tab 03/29/20 05/07/20 Unknown Rx release sodium bicarbonate 650 mg tablet 650 mg PO BID 30 Days #60 tab 03/29/20 05/07/20 Unknown Rx sucralfate 1 gram tablet 1 gm PO BID 210 Days #60 tab 03/29/20 05/07/20 Unknown Rx furosemide 80 mg tablet 80 mg PO DAILY #30 tab 04/26/20 05/07/20 Unknown Rx metoprolol tartrate 50 mg tablet 50 mg PO BID #60 tab 04/26/20 05/07/20 Unknown Rx warfarin 5 mg tablet 5 mg PO DAILY #90 tab 04/26/20 05/07/20 Unknown Rx hydrocodone 10 mg-acetaminophen 1 tab PO Q6H PRN 30 Days #120 tab 05/07/20 05/07/20 Unknown Rx 325 mg tablet hydrocodone 10 mg-acetaminophen 1 tab PO QID 30 Days #120 tab 05/07/20 05/07/20 Unknown Rx 325 mg tablet tramadol 50 mg tablet 50 mg PO QID PRN 30 Days #120 tab 05/07/20 05/07/20 Unknown Rx Allergies Allergy/AdvReac Type Severity Reaction Status Date / Time Penicillins Allergy Unknown Unknown Verified 05/14/20 23:04 PFSH Acute PFSH: Medical History Anasarca Anxiety Atrial fibrillation Cardiomyopathy Chronic bilateral low back pain Chronic idiopathic pain syndrome Chronic kidney disease (CKD) Congestive heart failure 20-25% EF pulmonary hypertension Diabetes mellitus Encounter for long-term opiate analgesic use GERD (gastroesophageal reflux disease) History of cardioversion Failed electrical cardioversion in 2012 for A. fib Morbid obesity Venous stasis Warfarin anticoagulation Surgical History S/P ankle fusion LEFT S/P cholecystectomy Family History Father Diabetes Social History Smoking and tobacco status: never smoked Second hand smoke exposure: No Alcohol intake: never Marital status: History of recent travel: No Vitals/I&O/Wt Last Vital Signs Temp 98.5 F 05/14/20 23:01 Pulse 106 H 05/15/20 02:30 Resp 25 H 05/15/20 02:30 BP 119/63 05/15/20 02:30 Pulse Ox 95 05/15/20 02:30 05/14/20 05/14/20 05/15/20 14:59 22:59 06:59 Intake Total 156.833 / 156.833 Balance 156.833 / 156.833 Weight last 48 hrs Weight 204.117 kg Physical Exam Narrative: EXAM NARRATIVE: Morbidly obese male laying in his bed, saturating well on 2 L nasal cannula No active respiratory distress S1, S2, still difficult to assess his fluid volume status, however I could appreciate some skin wrinkling of lower extremities, Poor hygiene, Extensive panniculitis, Min catheter draining concentrated cloudy urine Huge abdominal pannus, nonpurulent cellulitis, moist abdominal fold, extensive scaling of anterior abdominal wall with hyperemia EOMI, PERRLA Bilateral breath sounds with expiratory wheezing Patient seems to be motivated to get out of bed and walk with the help of walker A. fib RVR heart rate 110, blood pressure normal Urinary Catheter Management^: Min: Cath Placed During This Visit: yes Reason for Continuing Indwelling Catheter: Acute Urinary Retention or Obstruction Urinary Catheter Date of Insertion: 05/15/20 Urinary Catheter Time of Insertion: 01:13 Data : 05/14/20 23:14 05/14/20 23:14 Micro: Microbiology 05/14/20 00:31 Blood Culture - Preliminary Blood SPECIMEN COLLECTED 05/14/20 00:31 Blood Culture - Preliminary Blood SPECIMEN COLLECTED A&P Assessment and plan (1) Sepsis: Status: Acute Qualifiers: Sepsis acute organ dysfunction status: unspecified Sepsis type: sepsis due to unspecified organism Qualified Code(s): A41.9 - Sepsis, unspecified organism (2) Acute UTI: Status: Acute (3) Atrial fibrillation with rapid ventricular response: Status: Acute (4) Warfarin anticoagulation: Status: Acute Additional A&P Information Sepsis secondary to UTI Sepsis criteria met with tachypnea, leukocytosis, Recurrent UTIs, previous urine culture grew Pseudomonas, cefazolin sensitive, Considering pending colitis and UTI and previous urine culture Pseudomonas positivity, I would use vancomycin for MRSA coverage and imipenem to cover ESBL Source of infection should be controlled, kindly consider surgical consult for debridement of her abdominal pannus Symptomatic A. fib with RVR Continue Coumadin, currently on Cardizem drip heart rate fluctuating between 100-1 10, most likely his shortness of breath was secondary to rapid ventricular response Hypomagnesemia: Magnesium repleted Preserved ejection fraction heart failure: Hard to assess his volume status however BNP 4000, I would use Bumex start of Lasix, Full code Cardiac diet DVT prophylaxis not indicated because of current use of Coumadin Attestations Medical Necessity Statement*: During stay in the hospital cross more than 2 midnights currently need IV antibiotics for sepsis secondary to UTI Cardizem drip for A. fib RVR Time Spent in Patient Care: Greater than 35 minutes (>than 50% of time spent in counselling and/or direct pt care on unit) . 50 minutes Coding Level of Care Code Acute Turbine Measurements Engineer for Chg Fwd Diagnoses Sepsis A41.9 Sepsis acute organ dysfunction status: unspecified Sepsis type: sepsis due to unspecified organism Acute UTI N39.0 Atrial fibrillation with rapid ventricular response I48.91 Warfarin anticoagulation Z79.01
--- NOTE | 2020-05-15 05:12 | PC.PHAR ---
Vancomycin is dosed at 2000mg IVPB every 12 hours to produce a predicted trough level of 12.51 (population based pharmacokinetic analysis). A trough level has been ordered from the lab to be obtained before the fourth dose to confirm and adjust if needed.
[2020-05-15] MEDS: HYDROcodone-acetaminophen 10-325 mg Tablet 1 TAB PO ×3 (06:45→19:20)
--- NOTE | 2020-05-15 06:46 | PC.NURSE ---
Patient arrived to the floor from the ED after report was received via phone. Patient is alert and oriented. Patient is in bariatric bed. Patient has been oriented to his room and call light within reach. Patient is on 2 L NC. Cardizem drip at 10 with heart rate in 80s. Other VSS. Patient has several reddened areas on skin folds with foul odor. Will monitor.
[2020-05-15 07:04] LABS: Glucose Point of Care 219 mg/dL (70-110)
--- NOTE | 2020-05-15 07:48 | P.PN_ITS ---
Subjective Subjective: Interval history: Patient reports chronic dyspnea on exertion especially when he is in the shower. Reports that he has not been able to take shower for a long time. Denies excessive drinking of fluids. Has good appetite and oral intake. Reports that his opioid medications were recently adjusted and finally his peripheral neuropathy got under control. Reports that he did not have any bowel movements for the last 5 days. Reports having atrial fibrillation for the last 9 years. His heart rate currently in the 90s and he is on diltiazem drip. He denies shortness of breath or chest pain this morning. Denies abdominal pain. Patient reports an allergic reaction to penicillin only. It is currently unknown how much urine was obtained after Min catheter was placed. Vitals/I&O/Wt Last Vital Signs Temp 98.0 F 05/15/20 07:28 Pulse 91 05/15/20 07:28 Resp 19 H 05/15/20 07:28 BP 108/57 05/15/20 07:28 Pulse Ox 99 05/15/20 07:28 05/14/20 05/15/20 05/15/20 22:59 06:59 14:59 Intake Total 729.583 / 729.583 Output Total 600 / 600 Balance 129.583 / 129.583 Weight last 48 hrs Weight 204.117 kg Physical Exam Const: COMMON NORMALS: no acute distress and patient oriented x3 Resp: OTHER: Bibasilar Rales. Cardio: RHYTHM: abnormal rhythm irregularly irregular OTHER: 3+ bilateral lower extremity and severe abdominal swelling. Wooden lower extremity and abdominal wall appearance GI: COMMON NORMALS: Normal to inspection, nondistended, normoactive bowel sounds present, Soft to palpation and non-tender PALPATION: Yes Soft to palpation Neuro: COMMON NORMALS: patient oriented x3 and no focal motor deficits Skin: NARRATIVE SKIN EXAM: Some redness of abdominal wall noted which appears to be secondary to extensive swelling/pitting edema Urinary Catheter Management^: Min: Cath Placed During This Visit: yes Reason for Continuing Indwelling Catheter: Acute Urinary Retention or O bstruction Urinary Catheter Date of Insertion: 05/15/20 Urinary Catheter Time of Insertion: 01:13 Data : 05/14/20 23:14 05/14/20 23:14 Micro: Microbiology 05/14/20 00:31 Blood Culture - Preliminary Blood SPECIMEN COLLECTED 05/14/20 00:31 Blood Culture - Preliminary Blood SPECIMEN COLLECTED A&P Assessment and plan (1) Sepsis: Status: Acute Qualifiers: Sepsis acute organ dysfunction status: unspecified Sepsis type: sepsis due to unspecified organism Qualified Code(s): A41.9 - Sepsis, unspecified organism (2) Acute UTI: Status: Acute (3) Atrial fibrillation with rapid ventricular response: Status: Acute (4) Warfarin anticoagulation: Status: Acute Additional A&P Information Sepsis secondary to UTI Sepsis criteria met with tachypnea, leukocytosis, Recurrent UTIs, previous urine culture grew Pseudomonas, cefazolin sensitive, Considering pending colitis and UTI and previous urine culture Pseudomonas positivity, I would use vancomycin for MRSA coverage and imipenem to cover ESBL Source of infection should be controlled, kindly consider surgical consult for debridement of her abdominal pannus Symptomatic A. fib with RVR Warfarin coagulopathy. Hypomagnesemia: Magnesium repleted Acute on chronic diastolic CHF exacerbation with severe anasarca. Present on admission Opiate-induced constipation, present on admission Suspected opiate induced urinary retention predisposing patient to frequent UTIs. Chronic microcytic anemia. Acute component cannot be completely ruled out Morbid obesity due to increased calorie intake with a BMI 57.8 Full code Cardiac diet DVT prophylaxis not indicated because of current use of Coumadin PLAN: Stop warfarin for now and repeat labs including CBC. Continue high-dose PPI Depending on labs will consider reversing warfarin and transfusing with PRBC Discontinue D5W Switch patient to IV Lasix and limited fluid intake. Start patient on scheduled potassium and recheck magnesium level. Decrease Heber and restart pregabalin Start patient on senna/Colace as well as daily MiraLAX. We will add Levaquin and further adjust antibiotics depending on culture results. We will try to find out how much urine was obtained after Min catheter was placed to make decision regarding removal. Continue oral metoprolol and gradually wean off diltiazem drip Discussed extensively regarding importance of fluid restriction. Patient voiced understanding. Once patient clinically improves will start patient on Flomax depending on blood pressure. Low threshold for ICU transfer. Attestations Medical Necessity Statement*: Patient with acute CHF exacerbation as well as severe anasarca and sepsis requires close inpatient monitoring and treatment. 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
[2020-05-15 08:28] LABS: Basophils # 0.2 10^3/uL (0.0-0.1); Basophils % 0.6 %; Eosinophils % 0.1 %; Hematocrit 27.3 % (42.0-52.0); Hemoglobin 7.4 g/dL (11.7-16.6); Lymphocytes # 0.5 10^3/uL (0.8-4.8); Lymphocytes % 1.7 %; Mean Corpuscular HGB Conc 27.1 g/dL (30.0-36.0); Mean Corpuscular Hemoglobin 19.4 pg (28.0-34.0); Mean Corpuscular Volume 71.5 fL (80-94); Mean Platelet Volume 9.9 fL (7.4-10.4); Monocytes # 0.8 10^3/uL (0.2-0.9); Monocytes % 2.7 %; Neutrophils # 27.43 10^3/uL (1.8-7.7); Nucleated Red Blood Cells % 0 %; Platelet Count 455 10^3/cmm (130-400); Red Blood Count 3.82 10^6/uL (4.1-5.3); Red Cell Distribution Width 19.8 % (12.1-15.1); White Blood Count 29.2 10^3/uL (4.0-10.0)
[2020-05-15] MEDS: metoprolol tartrate 50 mg Tablet PO ×2 (08:28→17:51)
[2020-05-15] MEDS: sucralfate 1 gm Tablet PO ×2 (08:28→17:51)
[2020-05-15] MEDS: sodium bicarbonate 650 mg Tablet PO ×2 (08:28→17:51)
[2020-05-15] MEDS: OLANZapine 5 mg TABLET 2.5 MG PO ×2 (08:28→17:51)
[2020-05-15] MEDS: pregabalin 75 mg Capsule PO ×3 (08:32→20:33)
[2020-05-15] MEDS: potassium chloride ER 10 mEq Tablet 40 MEQ PO ×2 (08:32→16:16)
[2020-05-15] MEDS: sennosides-docusate Tablet 2 TAB PO ×2 (08:32→17:51)
[2020-05-15] MEDS: polyethylene glycol 3350 Pkt 17 gm PO (08:32)
[2020-05-15] MEDS: levofloxacin-dextrose 5 % 750 MG/150 ML PREMIX 100 MG IV (08:33)
[2020-05-15] MEDS: FUROsemide 10 mg/mL SDV 10mL 60 MG IVP ×2 (08:33→16:16)
[2020-05-15 08:54] LABS: Alanine Aminotransferase 10 U/L (0-41); Alkaline Phosphatase 181 IU/L (40-130); Anion Gap 16.9 (5-19); Aspartate Amino Transferase 18 U/L (0-40); Blood Urea Nitrogen 18 mg/dL (8-23); Calcium 8.6 mg/dL (8.5-10.5); Carbon Dioxide 25 mmol/L (22-29); Chloride 100 mmol/L (98-107); Globulin 3.9 g/dL (1.3-4.6); Glomerular Filtration Rate 67.4 mL/min (90-130); Glucose 247 mg/dL (65-115); Osmolality Calculated 296 mOsm/kg (285-295); Potassium 3.9 mmol/L (3.5-5.1); Sodium 138 mmol/L (136-145); Total Protein 6.9 g/dL (6.6-8.7)
[2020-05-15] MEDS: nystatin powder 15 gm Btl 1 APPLIC TOPICAL ×3 (09:06→20:33)
[2020-05-15 11:26] LABS: Glucose Point of Care 229 mg/dL (70-110)
--- NOTE | 2020-05-15 12:59 | PC.NURSE ---
Patient reports severe pain in his feet and legs reports he takes tramodol and hydrocodone at home for pain explained to patient that he could have another hydrocodone at 1500 patient states I can't go that long without pain medications because I will start withdrawing and having convulsions see my arms are starting to shake. noted trembling in right arm notified Dr Marroquin of patient concern Instructions to reschedule patient current hydrocodone order for every 6 hours and give a dose now
[2020-05-15 16:52] LABS: Glucose Point of Care 181 mg/dL (70-110)
[2020-05-15] MEDS: pantoprazole DR 40 mg Tablet PO (17:51)
[2020-05-15 20:45] LABS: Glucose Point of Care 198 mg/dL (70-110)
--- NOTE | 2020-05-15 21:11 | PC.NURSE ---
Patient has no complaints at this time. Will monitor.
[2020-05-16] VITALS (9 sets, daily range): BP systolic 115–150; BP diastolic 72–91; PULSE 83–109; RESP 19–28; TEMP 36.6–36.8; O2SAT 90–98
[2020-05-16] MEDS: HYDROcodone-acetaminophen 10-325 mg Tablet 1 TAB PO ×4 (01:03→18:50)
[2020-05-16] MEDS: FUROsemide 10 mg/mL SDV 10mL 60 MG IVP ×3 (01:03→17:31)
--- NOTE | 2020-05-16 01:23 | PC.NURSE ---
Patient complained of a little bit of shortness of breath. Patient oxygen saturation WNL on room air, however 2 L NC helped patient's shortness of breath. Patient states the oxygen helped his shortness of breath. Will monitor.
[2020-05-16 04:55] LABS: Basophils # 0.1 10^3/uL (0.0-0.1); Basophils % 0.8 %; Eosinophils # 0.4 10^3/uL (0.0-0.8); Hematocrit 27.4 % (42.0-52.0); Hemoglobin 7.3 g/dL (11.7-16.6); Lymphocytes # 0.7 10^3/uL (0.8-4.8); Lymphocytes % 3.9 %; Mean Corpuscular HGB Conc 26.6 g/dL (30.0-36.0); Mean Corpuscular Hemoglobin 19.2 pg (28.0-34.0); Mean Corpuscular Volume 71.9 fL (80-94); Mean Platelet Volume 9.8 fL (7.4-10.4); Monocytes # 1.1 10^3/uL (0.2-0.9); Monocytes % 6.2 %; Neutrophils # 14.81 10^3/uL (1.8-7.7); Neutrophils % 86.5 %; Nucleated Red Blood Cells % 0 %; Platelet Count 464 10^3/cmm (130-400); Red Blood Count 3.81 10^6/uL (4.1-5.3); Red Cell Distribution Width 19.7 % (12.1-15.1); White Blood Count 17.1 10^3/uL (4.0-10.0)
[2020-05-16 05:06] LABS: INR 2.65 (0.8-1.2)
[2020-05-16 05:15] LABS: Alanine Aminotransferase 9 U/L (0-41); Albumin Level 3.1 g/dL (3.5-5.2); Alkaline Phosphatase 178 IU/L (40-130); Anion Gap 14.2 (5-19); Aspartate Amino Transferase 19 U/L (0-40); Blood Urea Nitrogen 20 mg/dL (8-23); Calcium 8.4 mg/dL (8.5-10.5); Carbon Dioxide 27 mmol/L (22-29); Chloride 100 mmol/L (98-107); Glucose 158 mg/dL (65-115); Osmolality Calculated 290 mOsm/kg (285-295); Potassium 4.2 mmol/L (3.5-5.1); Sodium 137 mmol/L (136-145); Total Bilirubin 0.8 mg/dL (0.15-1.2); Total Protein 7.1 g/dL (6.6-8.7)
[2020-05-16 05:16] LABS: Magnesium 1.9 mg/dL (1.7-2.3)
--- NOTE | 2020-05-16 05:48 | PC.NURSE ---
PATIENT STATED I THINK I AM HAVING WITHDRAWLS FROM MY PAIN PILLS. PATIENT'S DWIGHT/GROIN AREA HAS BEEN CLEANSED 2 TIMES THROUGHOUT SHIFT.
[2020-05-16 06:12] LABS: Glucose Point of Care 171 mg/dL (70-110)
--- NOTE | 2020-05-16 06:23 | PC.NURSE ---
Patient's urine is a yellow color this morning. Earlier in the shift, it had been a dark brownish color.
[2020-05-16] MEDS: sodium bicarbonate 650 mg Tablet PO ×2 (08:17→17:28)
[2020-05-16] MEDS: OLANZapine 5 mg TABLET 2.5 MG PO ×2 (08:17→17:29)
[2020-05-16] MEDS: sennosides-docusate Tablet 2 TAB PO ×2 (08:17→17:29)
[2020-05-16] MEDS: levofloxacin-dextrose 5 % 750 MG/150 ML PREMIX 100 MG IV (08:17)
[2020-05-16] MEDS: pregabalin 75 mg Capsule PO ×3 (08:17→20:24)
[2020-05-16] MEDS: sucralfate 1 gm Tablet PO ×2 (08:17→17:28)
[2020-05-16] MEDS: metoprolol tartrate 50 mg Tablet PO ×2 (08:18→17:29)
[2020-05-16] MEDS: nystatin powder 15 gm Btl 1 APPLIC TOPICAL ×3 (08:18→20:25)
[2020-05-16] MEDS: pantoprazole DR 40 mg Tablet PO ×2 (08:18→17:29)
--- NOTE | 2020-05-16 10:42 | P.PN_ITS ---
Subjective Subjective: Interval history: Patient reports feeling better this morning. He reports that last night he had episodes of anxiety. He denies any pain including chest. Reports that his breathing is comfortable. He had normal bowel movement yesterday without evidence of melena or hematochezia. He had approximately 3 L of urinary output since yesterday. White blood cell count is down to 17.1. Platelets and hemoglobin appears stable. His urine is growing gram-negative rods. Reports that he is compliant with fluid restriction. Vitals/I&O/Wt Last Vital Signs Temp 98.0 F 05/16/20 08:00 Pulse 105 H 05/16/20 08:00 Resp 23 H 05/16/20 08:00 BP 126/83 05/16/20 08:00 Pulse Ox 93 05/16/20 08:00 05/15/20 05/16/20 05/16/20 22:59 06:59 14:59 Intake Total 100 / 467.583 900 / 1367.583 340 / 340 Output Total 2450 / 3250 Balance 100 / -332.417 -1550 / -1882.417 340 / 340 Weight last 48 hrs Weight 204.117 kg Physical Exam Const: COMMON NORMALS: no acute distress and patient oriented x3 Resp: OTHER: Bibasilar Rales. Cardio: RHYTHM: abnormal rhythm irregularly irregular OTHER: 2+ bilateral lower extremity and severe abdominal swelling. Wooden lower extremity and abdominal wall slightly improved GI: COMMON NORMALS: Normal to inspection, nondistended, normoactive bowel sounds present, Soft to palpation and non-tender PALPATION: Yes Soft to palpation Neuro: COMMON NORMALS: patient oriented x3 and no focal motor deficits Skin: NARRATIVE SKIN EXAM: Some redness of abdominal wall noted which appears to be secondary to extensive swelling/pitting edema Urinary Catheter Management^: Min: Cath Placed During This Visit: yes Reason for Continuing Indwelling Catheter: Acute Urinary Retention or O bstruction Urinary Catheter Date of Insertion: 05/15/20 Urinary Catheter Time of Insertion: 01:13 Data : 05/16/20 04:18 05/16/20 04:18 Micro: Microbiology 05/15/20 01:20 Urine Culture - Preliminary Urine,Clean Catch Gram Negative Rods 05/14/20 00:31 Blood Culture - Preliminary Blood NEGATIVE TO DATE 05/14/20 00:31 Blood Culture - Preliminary Blood NEGATIVE TO DATE A&P Assessment and plan (1) Sepsis: Status: Acute Qualifiers: Sepsis acute organ dysfunction status: unspecified Sepsis type: sepsis due to unspecified organism Qualified Code(s): A41.9 - Sepsis, unspecified organism (2) Acute UTI: Status: Acute (3) Atrial fibrillation with rapid ventricular response: Status: Acute (4) Warfarin anticoagulation: Status: Acute Additional A&P Information Sepsis secondary to UTI Sepsis criteria met with tachypnea, leukocytosis, Recurrent UTIs, previous urine culture grew Pseudomonas, cefazolin sensitive, Considering pending colitis and UTI and previous urine culture Pseudomonas positivity, I would use vancomycin for MRSA coverage and imipenem to cover ESBL Source of infection should be controlled, kindly consider surgical consult for debridement of her abdominal pannus Symptomatic A. fib with RVR Warfarin coagulopathy. Hypomagnesemia: Magnesium repleted Acute on chronic diastolic CHF exacerbation with severe anasarca. Present on admission Opiate-induced constipation, present on admission Suspected opiate induced urinary retention predisposing patient to frequent UTIs. Chronic microcytic anemia. Acute component cannot be completely ruled out Morbid obesity due to increased calorie intake with a BMI 57.8 Full code Cardiac diet DVT prophylaxis not indicated because of current use of Coumadin PLAN: Continue current monitoring and treatment and add Flomax as blood pressure appears to improve. Consider removing Min catheter tomorrow or next day. It is unclear how much urine was obtained when Min was placed. Continue holding Coumadin and consider restarting tomorrow. Continue current antibiotics. Awaiting urine culture results. Continue aggressive diuresis. Will request physical therapy to get patient up and walk. Attestations Medical Necessity Statement*: Patient with severe anasarca and heart failure as well as UTI requires close inpatient monitoring and treatment until deemed safe for discharge. 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
--- NOTE | 2020-05-16 11:14 | PC.CHAP ---
Pastoral Care Encounter/Spiritual Assessment Type of Contact [] Declined continuous improvement consultant visit [] Patient/Family/Request visit [] Outpatient visit [] Follow-up visit [] Physician referral [] Code/Alert [x] Routine visit [] Staff referral [] Actively dying [] Patient sleeping [] Family support [] [] Out of room [] Palliative care [] [x] Receiving care in room [] Pre-surgical visit [] Trauma [] Long length of stay [] ICU visit [] Other: Relational/Emotional Strength [x] Patient feels connected with others/family/visitors/staff [] Distress [] Loneliness/isolation [] Abandonment Spirituality of Patient [x] Person of Gini [] Attends Sabianist of their Gini [x] Believes in Prayer [] Reads Bible or Sikhism materials [] There are Spiritual issues to be addressed Train Announcer Interventions [x] Prayer [x] Active listening [x] Non-anxious presence [x] Spiritual/emotional support [] Crisis/trauma care [x] Spiritual counseling [] Bereavement support [] Provided bereavement packet [] Provided Bible/devotional materials [] Provided toy/stuffed animal, coloring book to patient or family member [] Provided Communion [] Anointing/[place] [] Salvation [x] Completed spiritual assessment [] Other: Impact on Illness or Injury [] Angry [] Fearful [] Anxious [] Often cries [] Exhaustion [] Unable to work [] Unable to attend alevism [] Unable to walk/stand [] Unable to read [] Unable to drive [] Unable to eat/drink [] Unable to sleep [] Unable to be with family [] Patient intubated [] Other: Summary Has high Anxiety feeling better, getting read to go home Time spent with patient 10 mins
[2020-05-16 11:33] LABS: Glucose Point of Care 205 mg/dL (70-110)
[2020-05-16] MEDS: tamsulosin 0.4 mg Capsule PO (11:50)
[2020-05-16 14:16] LABS: Vancomycin Trough 21.1 ug/mL (10-15)
[2020-05-16 16:23] LABS: Glucose Point of Care 217 mg/dL (70-110)
--- NOTE | 2020-05-16 19:41 | PC.NURSE ---
Rounding: Patient resting in bed. He denies any pain or needs at this time.
[2020-05-16 20:13] LABS: Glucose Point of Care 193 mg/dL (70-110)
[2020-05-17] MEDS: FUROsemide 10 mg/mL SDV 10mL 60 MG IVP ×3 (00:28→16:42)
[2020-05-17] MEDS: HYDROcodone-acetaminophen 10-325 mg Tablet 1 TAB PO ×4 (00:53→19:28)
[2020-05-17 03:37] VITALS: BP 129/98; PULSE 100; RESP 19; TEMP 36.6; O2SAT 94
[2020-05-17 05:41] LABS: INR 2.72 (0.8-1.2)
[2020-05-17 05:52] LABS: Alanine Aminotransferase 11 U/L (0-41); Albumin Level 2.7 g/dL (3.5-5.2); Alkaline Phosphatase 182 IU/L (40-130); Anion Gap 13.7 (5-19); Aspartate Amino Transferase 24 U/L (0-40); Blood Urea Nitrogen 19 mg/dL (8-23); Calcium 8.8 mg/dL (8.5-10.5); Carbon Dioxide 30 mmol/L (22-29); Chloride 98 mmol/L (98-107); Globulin 4.1 g/dL (1.3-4.6); Glucose 157 mg/dL (65-115); Magnesium 1.7 mg/dL (1.7-2.3); Osmolality Calculated 292 mOsm/kg (285-295); Potassium 3.7 mmol/L (3.5-5.1); Sodium 138 mmol/L (136-145); Total Bilirubin 0.7 mg/dL (0.15-1.2); Total Protein 6.8 g/dL (6.6-8.7)
[2020-05-17 06:21] LABS: Glucose Point of Care 150 mg/dL (70-110)
[2020-05-17 07:34] VITALS: BP 148/93; PULSE 102; RESP 20; TEMP 36.7; O2SAT 98
[2020-05-17] MEDS: levofloxacin-dextrose 5 % 750 MG/150 ML PREMIX 100 MG IV (08:42)
[2020-05-17] MEDS: metoprolol tartrate 50 mg Tablet PO ×2 (08:45→18:38)
[2020-05-17] MEDS: OLANZapine 5 mg TABLET 2.5 MG PO ×2 (08:46→18:35)
[2020-05-17] MEDS: pregabalin 75 mg Capsule PO ×3 (08:48→20:46)
[2020-05-17] MEDS: pantoprazole DR 40 mg Tablet PO ×2 (08:48→18:38)
[2020-05-17] MEDS: polyethylene glycol 3350 Pkt 17 gm PO (08:48)
[2020-05-17] MEDS: sennosides-docusate Tablet 2 TAB PO (08:49)
[2020-05-17] MEDS: sodium bicarbonate 650 mg Tablet PO ×2 (08:50→18:38)
[2020-05-17] MEDS: tamsulosin 0.4 mg Capsule PO (08:51)
[2020-05-17] MEDS: sucralfate 1 gm Tablet PO ×2 (08:51→18:35)
[2020-05-17] MEDS: nystatin powder 15 gm Btl 1 APPLIC TOPICAL ×3 (08:54→20:46)
[2020-05-17 11:29] LABS: Glucose Point of Care 228 mg/dL (70-110)
[2020-05-17 11:46] VITALS: BP 146/82; PULSE 106; RESP 18; TEMP 36.7; O2SAT 97
--- NOTE | 2020-05-17 12:04 | PM.PN ---
Subjective Subjective: Interval history: Patient had very good diuresis. Reports that his breathing much improved. Denies chest pain or abdominal pain. His urine is growing ESBL E. coli. Vitals/I&O/Wt Last Vital Signs Temp 98.0 F 05/17/20 11:46 Pulse 106 H 05/17/20 11:46 Resp 18 05/17/20 11:46 BP 146/82 05/17/20 11:46 Pulse Ox 97 05/17/20 11:46 05/16/20 05/17/20 05/17/20 22:59 06:59 14:59 Intake Total 175 / 765 350 / 1115 436 / 436 Output Total 1500 / 3100 2900 / 6000 3476 / 3476 Balance -1325 / -2335 -2550 / -4885 -3040 / -3040 Physical Exam Const: COMMON NORMALS: no acute distress and patient oriented x3 Resp: OTHER: Bibasilar Rales. Cardio: RHYTHM: abnormal rhythm irregularly irregular OTHER: 2+ bilateral lower extremity and severe abdominal swelling. Wooden lower extremity and abdominal wall slightly improved GI: COMMON NORMALS: Normal to inspection, nondistended, normoactive bowel sounds present, Soft to palpation and non-tender PALPATION: Yes Soft to palpation Neuro: COMMON NORMALS: patient oriented x3 and no focal motor deficits Skin: NARRATIVE SKIN EXAM: Some redness of abdominal wall noted which appears to be secondary to extensive swelling/pitting edema Urinary Catheter Management^: Min: Cath Placed During This Visit: yes Reason for Continuing Indwelling Catheter: Acute Urinary Retention or Obstruction Urinary Catheter Date of Insertion: 05/15/20 Urinary Catheter Time of Insertion: 01:13 Data : 05/16/20 04:18 05/17/20 04:30 Micro: Microbiology 05/15/20 01:20 Urine Culture - Final Urine,Clean Catch Escherichia coli esbl 05/14/20 00:31 Blood Culture - Preliminary Blood Gram Negative Rods A&P Assessment and plan (1) Sepsis: Improved Status: Acute Qualifiers: Sepsis acute organ dysfunction status: unspecified Sepsis type: sepsis due to unspecified organism Qualified Code(s): A41.9 - Sepsis, unspecified organism (2) Acute UTI: Acute pyelonephritis with ESBL E. coli. Status: Acute (3) Atrial fibrillation with rapid ventricular response: Status: Acute (4) Warfarin anticoagulation: Status: Acute Additional A&P Information Sepsis secondary to UTI Sepsis criteria met with tachypnea, leukocytosis, Recurrent UTIs, previous urine culture grew Pseudomonas, cefazolin sensitive, Considering pending colitis and UTI and previous urine culture Pseudomonas positivity, I would use vancomycin for MRSA coverage and imipenem to cover ESBL Source of infection should be controlled, kindly consider surgical consult for debridement of her abdominal pannus Symptomatic A. fib with RVR Warfarin coagulopathy. Hypomagnesemia: Magnesium repleted Acute on chronic diastolic CHF exacerbation with severe anasarca. Present on admission Opiate-induced constipation, present on admission Suspected opiate induced urinary retention predisposing patient to frequent UTIs. Chronic microcytic anemia. Acute component cannot be completely ruled out Morbid obesity due to increased calorie intake with a BMI 57.8 E. coli bacteremia. Secondary to acute pyelonephritis Full code Cardiac diet DVT prophylaxis not indicated because of current use of Coumadin PLAN: Discontinue Levaquin and vancomycin and continue Primaxin Continue aggressive diuresis and will continue using Min catheter for 1 more day. Will request PICC line placement as patient would require IV ertapenem 1 g daily for 2 weeks. Attestations Medical Necessity Statement*: Patient with acute pyelonephritis and severe anasarca requires close inpatient monitoring and treatment until deemed safe for discharge Time Spent in Patient Care: 16 - 35 minutes Coding Level of Care Code Acute Director Of Photography for [facility] Diagnoses Sepsis A41.9 Sepsis acute organ dysfunction status: unspecified Sepsis type: sepsis due to unspecified organism Acute UTI N39.0 Atrial fibrillation with rapid ventricular response I48.91 Warfarin anticoagulation Z79.01
--- NOTE | 2020-05-17 12:30 | PC.NURSE ---
Notified [facility] for Picc line order in place
[2020-05-17 16:00] VITALS: BP 129/66; PULSE 98; RESP 18; TEMP 36.6; O2SAT 97
[2020-05-17 16:58] LABS: Glucose Point of Care 179 mg/dL (70-110)
[2020-05-17 19:14] VITALS: BP 129/65; PULSE 94; RESP 22; TEMP 36.8; O2SAT 91
--- NOTE | 2020-05-17 19:48 | PC.NURSE ---
Rounding: Patient alert and oriented. Patient given his PRN pain medication for leg pain see EMAR. Patient denies any further needs at this time.
[2020-05-17 20:14] LABS: Glucose Point of Care 225 mg/dL (70-110)
[2020-05-17 23:13] VITALS: BP 120/65; PULSE 86; RESP 16; TEMP 36.5; O2SAT 97
[2020-05-18] VITALS (7 sets, daily range): BP systolic 72–147; BP diastolic 42–77; PULSE 85–112; RESP 18–26; TEMP 36.4–36.7; O2SAT 91–96
[2020-05-18] MEDS: FUROsemide 10 mg/mL SDV 10mL 60 MG IVP ×2 (00:26→09:34)
[2020-05-18] MEDS: HYDROcodone-acetaminophen 10-325 mg Tablet 1 TAB PO ×4 (01:42→21:55)
[2020-05-18 05:34] LABS: Basophils # 0.2 10^3/uL (0.0-0.1); Basophils % 1.4 %; Eosinophils % 9.2 %; Hematocrit 28.9 % (42.0-52.0); Hemoglobin 7.7 g/dL (11.7-16.6); Lymphocytes # 0.8 10^3/uL (0.8-4.8); Lymphocytes % 7.4 %; Mean Corpuscular HGB Conc 26.6 g/dL (30.0-36.0); Mean Corpuscular Hemoglobin 19.2 pg (28.0-34.0); Mean Corpuscular Volume 71.9 fL (80-94); Mean Platelet Volume 9.7 fL (7.4-10.4); Monocytes % 8.6 %; Neutrophils # 8.01 10^3/uL (1.8-7.7); Neutrophils % 72.3 %; Nucleated Red Blood Cells % 0 %; Platelet Count 474 10^3/cmm (130-400); Red Blood Count 4.02 10^6/uL (4.1-5.3); Red Cell Distribution Width 19.9 % (12.1-15.1); White Blood Count 11.1 10^3/uL (4.0-10.0)
[2020-05-18 05:48] LABS: INR 2.28 (0.8-1.2)
[2020-05-18 06:00] LABS: Alanine Aminotransferase 11 U/L (0-41); Albumin Level 2.8 g/dL (3.5-5.2); Alkaline Phosphatase 177 IU/L (40-130); Anion Gap 13.7 (5-19); Aspartate Amino Transferase 23 U/L (0-40); Blood Urea Nitrogen 17 mg/dL (8-23); Calcium 8.8 mg/dL (8.5-10.5); Carbon Dioxide 29 mmol/L (22-29); Chloride 98 mmol/L (98-107); Glomerular Filtration Rate 67.4 mL/min (90-130); Glucose 162 mg/dL (65-115); Osmolality Calculated 289 mOsm/kg (285-295); Potassium 3.7 mmol/L (3.5-5.1); Sodium 137 mmol/L (136-145); Total Bilirubin 0.7 mg/dL (0.15-1.2); Total Protein 6.8 g/dL (6.6-8.7)
[2020-05-18 06:38] LABS: Glucose Point of Care 164 mg/dL (70-110)
[2020-05-18] MEDS: metoprolol tartrate 50 mg Tablet PO ×2 (09:33→17:38)
[2020-05-18] MEDS: pregabalin 75 mg Capsule PO ×3 (09:33→20:49)
[2020-05-18] MEDS: tamsulosin 0.4 mg Capsule PO (09:33)
[2020-05-18] MEDS: polyethylene glycol 3350 Pkt 17 gm PO (09:34)
[2020-05-18] MEDS: pantoprazole DR 40 mg Tablet PO ×2 (09:34→17:37)
[2020-05-18] MEDS: sennosides-docusate Tablet 2 TAB PO ×2 (09:34→17:37)
[2020-05-18] MEDS: sucralfate 1 gm Tablet PO ×2 (09:34→17:37)
[2020-05-18] MEDS: sodium bicarbonate 650 mg Tablet PO ×2 (09:34→17:37)
[2020-05-18] MEDS: OLANZapine 5 mg TABLET 2.5 MG PO ×2 (09:34→17:38)
[2020-05-18] MEDS: nystatin powder 15 gm Btl 1 APPLIC TOPICAL ×3 (09:35→20:50)
--- NOTE | 2020-05-18 09:40 | PC.SOCIAL ---
Pg 2 IMM Explained to pt Pg 2 IMM. No questions voiced. Provided pt a copy. Signed, dated, & timed a copy & placed in chart.
--- NOTE | 2020-05-18 10:54 | PM.PN ---
Subjective Subjective: Interval history: Patient continues to have good urinary output. This morning patient denies shortness of breath or chest pain. He was not wearing oxygen when I saw him this morning. He was saturating 93% on room air. White blood cell count further improved. Hemoglobin remained stable. Vitals/I&O/Wt Last Vital Signs Temp 98.0 F 05/18/20 07:21 Pulse 90 05/18/20 07:21 Resp 18 05/18/20 07:21 BP 72/42 05/18/20 09:36 Pulse Ox 93 05/18/20 07:21 05/17/20 05/18/20 05/18/20 22:59 06:59 14:59 Intake Total 100 / 736 100 / 836 240 / 240 Output Total 3800 / 7276 3000 / 52114 Balance -3700 / -6540 -2900 / -9440 240 / 240 Physical Exam Const: COMMON NORMALS: no acute distress and patient oriented x3 Resp: OTHER: Clear Cardio: RHYTHM: abnormal rhythm irregularly irregular OTHER: 1+ bilateral lower extremity and severe abdominal swelling. Wooden lower extremity and abdominal wall slightly improved GI: COMMON NORMALS: Normal to inspection, nondistended, normoactive bowel sounds present, Soft to palpation and non-tender PALPATION: Yes Soft to palpation Neuro: COMMON NORMALS: patient oriented x3 and no focal motor deficits Skin: NARRATIVE SKIN EXAM: Redness is much improved. Urinary Catheter Management^: Min: Cath Placed During This Visit: yes Reason for Continuing Indwelling Catheter: Acute Urinary Retention or Obstruction Urinary Catheter Date of Insertion: 05/15/20 Urinary Catheter Time of Insertion: 01:13 Data : 05/18/20 05:18 05/18/20 05:18 Micro: Microbiology 05/18/20 05:18 Blood Culture - Preliminary Blood SPECIMEN COLLECTED 05/18/20 05:18 Blood Culture - Preliminary Blood SPECIMEN COLLECTED 05/15/20 01:20 Urine Culture - Final Urine,Clean Catch Escherichia coli esbl 05/14/20 00:31 Blood Culture - Preliminary Blood Gram Negative Rods A&P Assessment and plan (1) Sepsis: Improved Status: Acute Qualifiers: Sepsis acute organ dysfunction status: unspecified Sepsis type: sepsis due to unspecified organism Qualified Code(s): A41.9 - Sepsis, unspecified organism (2) Acute UTI: Acute pyelonephritis with ESBL E. coli. Status: Acute (3) Atrial fibrillation with rapid ventricular response: Status: Acute (4) Warfarin anticoagulation: Status: Acute Additional A&P Information Sepsis secondary to UTI Sepsis criteria met with tachypnea, leukocytosis, Recurrent UTIs, previous urine culture grew Pseudomonas, cefazolin sensitive, Considering pending colitis and UTI and previous urine culture Pseudomonas positivity, I would use vancomycin for MRSA coverage and imipenem to cover ESBL Source of infection should be controlled, kindly consider surgical consult for debridement of her abdominal pannus Symptomatic A. fib with RVR Warfarin coagulopathy. Hypomagnesemia: Magnesium repleted Acute on chronic diastolic CHF exacerbation with severe anasarca. Present on admission Opiate-induced constipation, present on admission Suspected opiate induced urinary retention predisposing patient to frequent UTIs. Chronic microcytic anemia. Acute component cannot be completely ruled out Morbid obesity due to increased calorie intake with a BMI 57.8 E. coli bacteremia. Secondary to acute pyelonephritis Full code Cardiac diet DVT prophylaxis not indicated because of current use of Coumadin PLAN: Patient wants to keep Min cath until later this afternoon. We will transition patient to oral Lasix and give 1 dose of albumin. Remove Min catheter later this afternoon and make sure patient can urinate. Continue with physical therapy and if patient continues to improve we will likely be able to dismiss him home tomorrow. Discussed case with patient's Jaki and updated. She thinks she will be able to administer IV antibiotic at home. We have discussed regarding importance of fluid restriction if patient shows evidence of worsening edema and she will monitor. Awaiting PICC line placement later today or tomorrow. Attestations Medical Necessity Statement*: Patient with UTI and bacteremia as well as severe fluid overload requires close inpatient monitoring and treatment until deemed safe for discharge. 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
[2020-05-18 11:30] LABS: Glucose Point of Care 207 mg/dL (70-110)
[2020-05-18] MEDS: iron sucrose 200 MG in sodium chloride 0.9% (100 ml) 100 ML 220 MG IV (12:07)
[2020-05-18] MEDS: FUROsemide 40 mg Tablet PO (15:51)
[2020-05-18 16:08] LABS: Glucose Point of Care 223 mg/dL (70-110)
--- NOTE | 2020-05-18 18:34 | PC.NURSE ---
PATIENT WILL HAVE PICC LINE PLACED AFTER 1900. PT IV LINE IS NOW LEAKING. PER DR. MURO, MAY LEAVE OUT IV AND START 1800 PRIMAXIN AFTER PICC LINE IS PLACED. WILL RETIME MEDICATION TO [address] MURO.
--- NOTE | 2020-05-18 20:02 | XRR_ITS ---
PROCEDURE INFORMATION: Exam: XR Chest, 1 View Exam date and time: 05/18/2020 8:03 PM Age: 65 years old Clinical indication: Device placement; Patient HX: R picc placement TECHNIQUE: Imaging protocol: XR of the chest Views: 1 view. Other technique: The patient is rotated to the right. COMPARISON: CR XR chest 1V portable [id number] 05/14/2020 11:35 PM FINDINGS: Tubes, catheters and devices: Interval placement of a right upper extremity PICC with the tip at the proximal SVC. Lungs: The lower lobes are incompletely visualized. There is moderate interstitial pulmonary edema in the visualized lungs with superimposed alveolar edema versus atelectasis versus pneumonia in the visualized lower lobes. Findings have increased compared with the previous study. Pleural space: No pleural effusion. No pneumothorax. Heart/Mediastinum: The visualized cardiac silhouette is moderately enlarged. Findings are stable. Mediastinal contours are unremarkable for technique. Bones/joints: Unremarkable for age. XR/XR chest 1V portable [id number] IMPRESSION: 1. Interval placement of a right upper extremity PICC with the tip at the proximal SVC. 2. The lower lobes are incompletely visualized. There is moderate interstitial pulmonary edema in the visualized lungs with superimposed alveolar edema versus atelectasis versus pneumonia in the visualized lower lobes. Findings have increased compared with the previous study. Recommend followup chest x-ray to ensure resolution. 3. Incidental/nonacute findings are listed in the report.
--- NOTE | 2020-05-18 20:10 | PC.NURSE ---
Rounding: Patient is alert and oriented. Resting in bed watching TV. PICC is being placed at this time.
[2020-05-18 20:41] LABS: Glucose Point of Care 180 mg/dL (70-110)
--- NOTE | 2020-05-18 20:43 | PC.NURSE ---
PICC placed right basilic.
[2020-05-19] VITALS (11 sets, daily range): BP systolic 106–148; BP diastolic 63–91; PULSE 78–108; RESP 14–23; TEMP 36.3–37; O2SAT 88–97
[2020-05-19] MEDS: HYDROcodone-acetaminophen 10-325 mg Tablet 1 TAB PO ×3 (03:58→16:16)
[2020-05-19 05:52] LABS: Basophils # 0.2 10^3/uL (0.0-0.1); Basophils % 1.7 %; Eosinophils # 1.2 10^3/uL (0.0-0.8); Eosinophils % 10.9 %; Hematocrit 28.1 % (42.0-52.0); Hemoglobin 7.5 g/dL (11.7-16.6); Lymphocytes # 0.8 10^3/uL (0.8-4.8); Lymphocytes % 6.9 %; Mean Corpuscular HGB Conc 26.7 g/dL (30.0-36.0); Mean Corpuscular Hemoglobin 19.3 pg (28.0-34.0); Mean Corpuscular Volume 72.2 fL (80-94); Mean Platelet Volume 9.4 fL (7.4-10.4); Monocytes # 1.1 10^3/uL (0.2-0.9); Monocytes % 9.8 %; Neutrophils # 7.54 10^3/uL (1.8-7.7); Neutrophils % 69.3 %; Nucleated Red Blood Cells % 0.2 %; Platelet Count 481 10^3/cmm (130-400); Red Blood Count 3.89 10^6/uL (4.1-5.3); Red Cell Distribution Width 19.9 % (12.1-15.1); White Blood Count 10.9 10^3/uL (4.0-10.0)
[2020-05-19 06:15] LABS: Glucose Point of Care 176 mg/dL (70-110)
[2020-05-19 06:29] LABS: Alanine Aminotransferase 9 U/L (0-41); Albumin Level 2.9 g/dL (3.5-5.2); Alkaline Phosphatase 186 IU/L (40-130); Anion Gap 12.7 (5-19); Aspartate Amino Transferase 25 U/L (0-40); Blood Urea Nitrogen 17 mg/dL (8-23); Calcium 8.7 mg/dL (8.5-10.5); Carbon Dioxide 31 mmol/L (22-29); Chloride 97 mmol/L (98-107); Globulin 3.5 g/dL (1.3-4.6); Glomerular Filtration Rate 67.4 mL/min (90-130); Glucose 173 mg/dL (65-115); Magnesium 1.7 mg/dL (1.7-2.3); Osmolality Calculated 290 mOsm/kg (285-295); Potassium 3.7 mmol/L (3.5-5.1); Sodium 137 mmol/L (136-145); Total Bilirubin 0.7 mg/dL (0.15-1.2); Total Protein 6.4 g/dL (6.6-8.7)
[2020-05-19] MEDS: metoprolol tartrate 50 mg Tablet 75 MG PO (08:52)
[2020-05-19] MEDS: sucralfate 1 gm Tablet PO (08:53)
[2020-05-19] MEDS: tamsulosin 0.4 mg Capsule PO (08:53)
[2020-05-19] MEDS: sodium bicarbonate 650 mg Tablet PO (08:53)
[2020-05-19] MEDS: potassium chloride ER 10 mEq Tablet 20 MEQ PO (08:53)
[2020-05-19] MEDS: pregabalin 75 mg Capsule PO ×2 (08:54→15:41)
[2020-05-19] MEDS: pantoprazole DR 40 mg Tablet PO (08:54)
[2020-05-19] MEDS: OLANZapine 5 mg TABLET 2.5 MG PO (08:54)
[2020-05-19] MEDS: sennosides-docusate Tablet 2 TAB PO (08:54)
[2020-05-19] MEDS: FUROsemide 40 mg Tablet PO (08:54)
[2020-05-19 09:07] LABS: Folate Level 6.9 ng/mL (4.5-32.2)
[2020-05-19 09:08] LABS: Vitamin B12 764 pg/mL (232-1245)
[2020-05-19 10:54] LABS: Glucose Point of Care 236 mg/dL (70-110)
[2020-05-19] MEDS: sodium chloride 0.9% (100 ml) 100 ML 25 ML (11:20)
[2020-05-19] MEDS: ertapenem 1,000 MG in sodium chloride 0.9% (plus) 100 ML 200 MG IV (14:32)
--- NOTE | 2020-05-19 14:43 | P.DS_ITS ---
Discharge Providers Date of Admission: 05/15/20 03:28 Date of Discharge: May 19, 2020 Attending Provider at Admission: Wes Millan MD Attending Provider at Discharge: Rafy Marroquin MD Primary Care Provider: LISHA Torres Diagnoses at Discharge Discharge Diagnosis (1) Sepsis: Status: Acute Problem details: Resolved Qualifiers: Sepsis acute organ dysfunction status: unspecified Sepsis type: sepsis due to unspecified organism Qualified Code(s): A41.9 - Sepsis, unspecified organism (2) Acute UTI: Status: Acute Problem details: Acute pyelonephritis with evidence of bacteremia due to ESBL E. coli. (3) Atrial fibrillation with rapid ventricular response: Status: Acute Problem details: Improved (4) Warfarin anticoagulation: Status: Acute (5) Anasarca: Status: Acute (6) GERD (gastroesophageal reflux disease): Status: Acute (7) Diabetes mellitus: Status: Chronic (8) Morbid obesity: Status: Chronic Problem details: Due to increased calorie intake and anasarca with BMI 57.8 (9) Microcytic hypochromic anemia: Status: Acute Problem details: Secondary to iron deficiency. (10) Acute noncardiogenic pulmonary edema: Status: Acute Problem details: Present on admission. Related to anasarca and severe fluid overload. Reason for Visit Reason for Visit: SOB Hospital Course Discharge Summary: Patient presented with shortness of breath secondary to acute what appears to be noncardiogenic pulmonary edema secondary to severe anasarca. Patient also found to have acute pyelonephritis with bacteremia with culture growing ESBL E. coli. Patient was aggressively diuresed and treated with Primaxin and gradually improved. This afternoon patient reports feeling much better and wants to go home. Reports that he is very uncomfortable in hospital bed. We had extensive discussion regarding importance of fluid restriction when patient notices worsening peripheral edema and shortness of breath. Patient voiced understanding. I will increase Lasix to 80 mg twice daily with potassium supplements and request repeat blood work in several days prior to primary care physician follow-up. Patient was started on Flomax and appears to be tolerating well. His Min catheter was removed and he is urinating without any difficulty. I will continue ertapenem for 2 more weeks. Outpatient follow-up with cardiology service also be made. We will check patient for home O2. He was given 1 unit of PRBC as he appears to have chronic microcytic anemia of iron deficiency. His hemoglobin remained stable and patient does not have evidence of GI bleed currently. Patient was told to check INR more frequently while taking antibiotic to make sure his INR is therapeutic. Patient's oral intake otherwise is very good and he eats 100% of his meals. I have discussed regard importance of decreasing amount of opioids he takes. Patient to discontinue tramadol. We will continue Justin. Patient's heart rate was on the higher side and he required some support of Cardizem drip. Metoprolol dose was increased to 75 g twice daily and appears to be controlling heart rate much better. Patient will be discharged with home health to continue with PT/OT. He appears to be doing much better with physical therapy and once he diuresed very large amount of fluids. Physical Exam Const: COMMON NORMALS: no acute distress and patient oriented x3 Resp: COMMON NORMALS: normal respiratory effort and clear to auscultation bilaterally AUSCULTATION: clear to auscultation bilaterally Cardio: COMMON NORMALS: regular rate, regular rhythm and S2 normal heart sound present RATE: regular rate RHYTHM: regular rhythm HEART SOUNDS: S2 normal heart sound present OTHER: 1+ lower extremity edema. Patient continues to have significant abdominal wall edema which overall improved GI: COMMON NORMALS: Normal to inspection, nondistended, normoactive bowel sounds present, Soft to palpation and non-tender PALPATION: Yes Soft to palpation Neuro: COMMON NORMALS: patient oriented x3 and no focal motor deficits Urinary Catheter Management^: Min: Cath Placed During This Visit: yes, but has since been removed by the nurse Reason for Continuing Indwelling Catheter: Acute Urinary Retention or Obstruction Urinary Catheter Date of Insertion: 05/15/20 Urinary Catheter Time of Insertion: 01:13 Date Urinary Catheter Removed: 05/18/20 Time Urinary Catheter Discontinued: 15:55 Discharge Data Data Completed and Pending: Completed Studies During Hospitalization Category Date Time Status XR chest 1V wendy ble 88255 Stat Exams 05/14/20 22:59 Completed XR chest 1V wendy ble 72809 Stat Exams 05/18/20 20:02 Completed Pending at discharge Category Date Time Status Blood Culture AM LABS Lab 05/18/20 05:18 Results Blood Culture AM LABS Lab 05/19/20 05:36 Results Blood Culture Sta t Lab 05/14/20 00:31 Results Complete Blood Co unt w/Auto AM LABS Lab 05/20/20 04:00 Ordered Complete Blood Co unt w/Auto AM LABS Lab 05/20/20 04:00 Ordered Complete Blood Co unt w/Auto AM LABS Lab 05/21/20 04:00 Ordered Comprehensive Met abolic Panel AM LA BS Lab 05/20/20 04:00 Ordered Comprehensive Met abolic Panel AM LA BS Lab 05/21/20 04:00 Ordered Magnesium AM LABS Lab 05/20/20 04:00 Ordered Magnesium AM LABS Lab 05/21/20 04:00 Ordered Labs from last 24 hours 05/19/20 05/19/20 05/19/20 10:47 08:51 06:05 WBC RBC Hgb Hct MCV MCH MCHC RDW Plt Count MPV Neut % (Auto) Lymph % (Auto) [place] % (Auto) Eos % (Auto) Baso % (Auto) Neut # (Auto) Lymph # (Auto) [place] # (Auto) Eos # (Auto) Baso # (Auto) Nucleated RBC % (a uto) Nucleated RBCs # Sodium Potassium Chloride Carbon Dioxide Anion Gap BUN Creatinine GFR Calculation Glucose POC Glucose 236 176 Calculated Osmolal ity Calcium Magnesium Total Bilirubin AST ALT Alkaline Phosphata se Total Protein Albumin Globulin Vitamin B12 Folate Blood Type A Positive Rho(D) Type Positive Antibody Screen Negative Crossmatch See Detail 05/19/20 05/19/20 05/19/20 05:33 05:33 05:33 WBC 10.9 H RBC 3.89 L Hgb 7.5 L Hct 28.1 L MCV 72.2 L MCH 19.3 L MCHC 26.7 L RDW 19.9 H Plt Count 481 H MPV 9.4 Neut % (Auto) 69.3 Lymph % (Auto) 6.9 [place] % (Auto) 9.8 Eos % (Auto) 10.9 Baso % (Auto) 1.7 Neut # (Auto) 7.54 Lymph # (Auto) 0.8 [place] # (Auto) 1.1 H Eos # (Auto) 1.2 H Baso # (Auto) 0.2 H Nucleated RBC % (a uto) 0.2 Nucleated RBCs # 0.0 Sodium 137 Potassium 3.7 Chloride 97 L Carbon Dioxide 31 H Anion Gap 12.7 BUN 17 Creatinine 1.1 GFR Calculation 67.4 L Glucose 173 H POC Glucose Calculated Osmolal ity 290 Calcium 8.7 Magnesium 1.7 Total Bilirubin 0.7 AST 25 ALT 9 Alkaline Phosphata se 186 H Total Protein 6.4 L Albumin 2.9 L Globulin 3.5 Vitamin B12 764 Folate Blood Type Rho(D) Type Antibody Screen Crossmatch 05/19/20 05/18/20 05/18/20 05:33 20:37 15:43 WBC RBC Hgb Hct MCV MCH MCHC RDW Plt Count MPV Neut % (Auto) Lymph % (Auto) [place] % (Auto) Eos % (Auto) Baso % (Auto) Neut # (Auto) Lymph # (Auto) [place] # (Auto) Eos # (Auto) Baso # (Auto) Nucleated RBC % (a uto) Nucleated RBCs # Sodium Potassium Chloride Carbon Dioxide Anion Gap BUN Creatinine GFR Calculation Glucose POC Glucose 180 223 Calculated Osmolal ity Calcium Magnesium Total Bilirubin AST ALT Alkaline Phosphata se Total Protein Albumin Globulin Vitamin B12 Folate 6.9 Blood Type Rho(D) Type Antibody Screen Crossmatch Vitals: Last Vital Signs Temp 97.4 F L 05/19/20 11:23 Pulse 87 05/19/20 11:00 Resp 18 05/19/20 11:23 BP 119/67 05/19/20 11:23 Pulse Ox 91 05/19/20 11:00 Discharge Plan Discharge Patient Disposition: Home Health Service Condition: Stable Prescriptions: New tamsulosin 0.4 mg Capsule 0.4 mg PO DAILY Qty: 30 RF: 0 potassium chloride 10 mEq Tablet Extended Release 20 meq PO BID Qty: 60 RF: 0 metoprolol tartrate 50 mg Tablet 75 mg PO BID Qty: 90 RF: 0 Ferretts 325 mg (106 mg iron) tablet 325 mg PO EVERY OTHER DAY Qty: 30 RF: 0 polyethylene glycol 3350 17 gram Powder In Packet 17 g PO DAILY PRN (Reason: constipation) Qty: 30 RF: 0 sennosides-docusate sodium 8.6-50 mg Tablet 1 tab PO BID Qty: 60 RF: 0 ertapenem [Invanz] 1 gram recon soln 1 gm IV DAILY 14 Days RF: 0 Continued (DME) DME: [facility] See Rx Instructions .ROUTE .MEDSUPPLY Qty: 1 RF: 0 ondansetron HCl [Zofran] 4 mg tablet 4 mg PO Q6H PRN (Reason: NAUSEA) RF: 0 pregabalin 75 mg capsule 75 mg PO TID 30 Days Qty: 90 RF: 1 hydrocodone-acetaminophen 10-325 mg tablet 1 tab PO Q6H PRN (Reason: pain) 30 Days Qty: 120 RF: 0 nystatin [Nyamyc] 100,000 unit/gram powder 1 applic TOPICAL TID Qty: 60 RF: 2 sodium bicarbonate 650 mg tablet 650 mg PO BID 30 Days Qty: 60 RF: 2 pantoprazole 40 mg tablet,delayed release (DR/EC) 40 mg PO BID 30 Days Qty: 60 RF: 2 olanzapine 2.5 mg tablet 2.5 mg PO BID Qty: 60 RF: 5 warfarin 5 mg tablet 5 mg PO DAILY Qty: 90 RF: 2 buspirone 15 mg Tablet 15 mg PO BID RF: 0 insulin aspart U-100 [Novolog U-100 Insulin aspart] 100 unit/mL Solution See Rx Instructions .ROUTE .COMPLEX Qty: 10 RF: 0 Changed furosemide 80 mg tablet 80 mg PO BID Qty: 30 RF: 0 Discontinued tramadol 50 mg tablet 50 mg PO QID PRN (Reason: pain) 30 Days Qty: 120 RF: 1 Carafate 1 gram tablet 1 gm PO BID 210 Days Qty: 60 RF: 2 metoprolol tartrate 50 mg tablet 50 mg PO BID Qty: 60 RF: 0 Discharge Orders: Discharge Order (Routine); Ordered 05/19/20 Ordered By: Rafy Marroquin Other Ambulatory Orders: Complete Blood Count w/Auto (Routine) Timeframe: 20200523 Location: Determined by Patient Ordered By: Rafy Marroquin Comprehensive Metabolic Panel (Routine) Timeframe: 20200523 Facility: [facility] - Location: Lab - Main Lab Ordered By: Rafy Marroquin Prothrombin Time INR (Routine) Timeframe: 20200523 Facility: [facility] - Location: Lab - Main Lab Ordered By: Rafy Marroquin Referrals: [facility] [Other] [facility] [Outside] Rafael Mcginnis MD [Physician] - 07/02/20 10:20 am (60 day follow up) FAITH Castanon FNP [Primary Care Provider] - 4-7 days Caesar Webber M.D [Physician] - 1 week (3 month follow up) Discharge Diet: Advance as tolerated Discharge Activity: Increase activity as tolerated Activity Restrictions/Additional Instructions: Please call your doctor or present to emergency department if your condition worsens or you develop diarrhea, lightheadedness, fatigue or see blood in your stool or black stool. Please keep blood pressure and heart rate log 3 times daily to present to primary care physician next visit for medication adjustment. Please limit fluid intake if you notice worsening lower extremity and abdominal wall swelling and shortness of breath. Please note that you have to take all this Lasix with potassium and cannot take 1 without other. If Lasix in future stopped or changed same should be done with potassium. Please note that you will require INR check more often while taking antibiotic as it may predispose you to bleeding. 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
[2020-05-19] MEDS: nystatin powder 15 gm Btl 1 APPLIC TOPICAL (15:37)
[2020-05-19 16:19] LABS: Glucose Point of Care 182 mg/dL (70-110)
== END 2020-05-19 18:15 | disposition home health service (06) | DRG 871 ==
LOC: ER 23:27 → CSU 05-15 04:08
PROVIDERS: Emergency Medicine; Admitting Provider Internal Medicine; PCP Nurse Practitioner Family; Visit Provider Internal Medicine
DX: A41.9 Sepsis, unspecified organism (principal); I50.33 Acute on chronic diastolic (congestive) heart failure; J81.0 Acute pulmonary edema; N39.0 Urinary tract infection, site not specified; I48.20 Chronic atrial fibrillation, unspecified; Z68.43 Body mass index [BMI] 50.0-59.9, adult; I42.9 Cardiomyopathy, unspecified; N10 Acute pyelonephritis; N18.9 Chronic kidney disease, unspecified; E11.22 Type 2 diabetes mellitus with diabetic chronic kidney disease; Z79.01 Long term (current) use of anticoagulants; E66.01 Morbid (severe) obesity due to excess calories; F41.9 Anxiety disorder, unspecified; M54.5 Low back pain; G89.4 Chronic pain syndrome; I27.20 Pulmonary hypertension, unspecified; K21.9 Gastro-esophageal reflux disease without esophagitis; E83.42 Hypomagnesemia; B96.5 Pseudomonas (aeruginosa) (mallei) (pseudomallei) as the cause of diseases classified elsewhere; Z79.891 Long term (current) use of opiate analgesic; R33.0 Drug induced retention of urine; T40.605A Adverse effect of unspecified narcotics, initial encounter; K59.03 Drug induced constipation; D50.0 Iron deficiency anemia secondary to blood loss (chronic)
CPT/HCPCS: 12345; 36415; 36416; 36430; 36569; 36592; 36600; 51702; 71045; 80053; 80202; 81001; 82607; 82746; 82803; 82962; 83605; 83735; 83880; 84439; 84443; 84484; 85025; 85610; 85730; 86850; 86900; 86920; 87040; 87077; 87086; 87186; 93005; 96372; 96375; 97110; 97162; 97530; 99284; J0743; J1335; J1756; J1815; J1940; J1956; J3370; J3475; J3490; J7040; J7050; P9016; P9047

== ENCOUNTER 2020-05-23 10:10 | Outpatient (CLI) | payer MEDICARE, SELFPAY ==
[2020-05-23 10:53] LABS: Basophils # 0.2 10^3/uL (0.0-0.1); Basophils % 1.9 %; Eosinophils # 1.2 10^3/uL (0.0-0.8); Eosinophils % 11.4 %; Hemoglobin 8.5 g/dL (11.7-16.6); Mean Corpuscular HGB Conc 26.6 g/dL (30.0-36.0); Mean Corpuscular Hemoglobin 20.2 pg (28.0-34.0); Mean Platelet Volume 10.1 fL (7.4-10.4); Monocytes # 0.9 10^3/uL (0.2-0.9); Monocytes % 8.9 %; Neutrophils % 66.9 %; Nucleated Red Blood Cells % 0 %; Platelet Count 566 10^3/cmm (130-400); Red Blood Count 4.21 10^6/uL (4.1-5.3); Red Cell Distribution Width 23.1 % (12.1-15.1); White Blood Count 10.2 10^3/uL (4.0-10.0)
[2020-05-23 11:21] LABS: Alanine Aminotransferase 9 U/L (0-41); Albumin Level 3.5 g/dL (3.5-5.2); Alkaline Phosphatase 194 IU/L (40-130); Anion Gap 14.2 (5-19); Aspartate Amino Transferase 24 U/L (0-40); Blood Urea Nitrogen 15 mg/dL (8-23); Calcium 8.7 mg/dL (8.5-10.5); Carbon Dioxide 31 mmol/L (22-29); Chloride 97 mmol/L (98-107); Globulin 3.6 g/dL (1.3-4.6); Glomerular Filtration Rate 67.4 mL/min (90-130); Glucose 182 mg/dL (65-115); Osmolality Calculated 291 mOsm/kg (285-295); Potassium 4.2 mmol/L (3.5-5.1); Sodium 138 mmol/L (136-145); Total Bilirubin 0.7 mg/dL (0.15-1.2); Total Protein 7.1 g/dL (6.6-8.7)
== END 2020-05-23 10:11 | disposition home or self-care (01) ==
LOC: LAB 10:12
PROVIDERS: PCP Nurse Practitioner Family; Visit Provider Internal Medicine
DX: N39.0 Urinary tract infection, site not specified (principal); A41.9 Sepsis, unspecified organism; R65.20 Severe sepsis without septic shock; Z79.01 Long term (current) use of anticoagulants
CPT/HCPCS: 80053; 85025

== ENCOUNTER 2020-05-28 10:38 | Emergency (ER) | payer MEDICARE, SELFPAY ==
[2020-05-28 10:44] VITALS: BP 145/81; PULSE 87; RESP 18; TEMP 36.7; O2SAT 95; BMI 56.5
--- NOTE | 2020-05-28 11:13 | ED_ITS ---
HPI - Recheck/Abnormal Lab/Rx General: Chief Complaint: Recheck/Abnormal Lab/Rx Stated Complaint: WEAKNESS, LOW HEMOGLOBIN Time Seen by Provider: 05/28/20 10:42 History of Present Illness: HPI narrative: 65 yo male presents emergency room via EMS. They relate that they were called by the primary care doctor after some abnormal labs that his hemoglobin is low. He has been tired and short of breath but is not any more than usual. Denies any abdominal or chest pain. He was recently in the hospital those records were reviewed as well. He also closed each called DJ ailin the nurse practitioner who we usually sees she was unaware that he been directed to the emergency room initially. MD complaint: abnormal lab Initial visit (ago): day(s) Context: called for abnormal lab result Associated symptoms: none Review of Systems Const: Reports: fatigue and malaise; Denies: fever(s), chills, body aches or change in appetite ENMT: Denies: throat pain, ear or mastoid pain, nasal discharge or nasal congestion Card: Reports: dyspnea on exertion; Denies: chest pain, edema or orthopnea Resp: Denies: productive cough or non-productive cough GI: Denies: abdominal pain, nausea, vomiting, hematemesis, coffee ground emesis, diarrhea, constipation, bloating, hematochezia or melena : Denies: flank pain, dysuria, urinary frequency or urinary urgency Skin/Breast: Denies: rash or pruritus PFSH ED PFSH: Medical History Anasarca Anxiety Atrial fibrillation Cardiomyopathy Chronic bilateral low back pain Chronic idiopathic pain syndrome Chronic kidney disease (CKD) Congestive heart failure 20-25% EF pulmonary hypertension Diabetes mellitus Encounter for long-term opiate analgesic use GERD (gastroesophageal reflux disease) History of cardioversion Failed electrical cardioversion in 2011 for A. fib Microcytic hypochromic anemia Secondary to iron deficiency. Morbid obesity Due to increased calorie intake and anasarca with BMI 57.8 Venous stasis Warfarin anticoagulation Surgical History S/P ankle fusion LEFT S/P cholecystectomy Family History Father Diabetes Social History Smoking and tobacco status: never smoked Second hand smoke exposure: No Alcohol intake: never Marital status: History of recent travel: No Physical Exam Const: COMMON NORMALS: no acute distress GENERAL APPEARANCE: cooperative and comfortable ORIENTATION/CONSCIOUSNESS: Yes awake, Yes oriented to person, Yes oriented to place and Yes oriented to time HENMT: COMMON NORMALS: normocephalic, atraumatic and hearing grossly normal bilaterally HEAD & SCALP: normocephalic and atraumatic Neck/C-Spine: COMMON NORMALS: no JVD Resp: COMMON NORMALS: normal respiratory effort, No retractions, No use of accessory muscles and clear to auscultation bilaterally AUSCULTATION: clear to auscultation bilaterally Cardio: COMMON NORMALS: no JVD, regular rate, regular rhythm and No murmurs present (Cardio) RATE: regular rate RHYTHM: regular rhythm GI: COMMON NORMALS: Soft to palpation and No hepatosplenomegaly present AUSCULTATION: Yes normoactive bowel sounds PALPATION: Yes Soft to palpation, No Tenderness to palpation present (GI), No Guarding due to palpation present (GI) and Yes No hepatosplenomegaly present Extremity: COMMON NORMALS: normal to inspection, capillary refill normal, no clubbing, cyanosis or edema, no calf tenderness and no pedal edema Neuro: SENSORIUM/ORIENTATION: Yes oriented to person, Yes oriented to place and Yes oriented to time Skin: COMMON NORMALS: no rashes or lesions noted GENERAL SKIN EXAM: no rashes or lesions noted Course Vital Signs: Vital signs: Vital Signs Temperature 98.1 F 05/28/20 10:44 Pulse Rate 87 05/28/20 10:44 Respiratory Rate 18 05/28/20 10:44 Blood Pressure 145/81 05/28/20 10:44 Pulse Oximetry 95 05/28/20 10:44 MDM - Recheck/Abnormal Lab/Rx MDM Narrative: Medical decision making narrative: Past is actually a little bit under his goal at this point. No change in plans at this point discussion DJ gross the nurse practitioner usually sees they just been monitoring him through home health. His hemoglobin today is better than its been in nearly a y ear and on the he requires any transfusion at this point continue to follow-up with his primary care doctor.Hemoglobin stable the remainder of the labs look good he has had Lab Data: Labs: Lab Results 05/28/20 05/28/20 Range/Units 11:50 11:50 WBC 9.7 (4.0-10.0) 10^3/ uL RBC 4.06 L (4.1-5.3) 10^6/u L Hgb 8.2 L (11.7-16.6) g/dL Hct 30.2 L (42.0-52.0) % MCV 74.4 L (80-94) fL MCH 20.2 L (28.0-34.0) pg MCHC 27.2 L (30.0-36.0) g/dL RDW 23.7 H (12.1-15.1) % Plt Count 452 H (130-400) 10^3/c mm MPV 9.5 (7.4-10.4) fL Neut % (Auto) 73.3 % Lymph % (Auto) 6.6 % [place] % (Auto) 8.5 % Eos % (Auto) 8.7 % Baso % (Auto) 2.3 % Neut # (Auto) 7.08 (1.8-7.7) 10^3/u L Lymph # (Auto) 0.6 L (0.8-4.8) 10^3/u L [place] # (Auto) 0.8 (0.2-0.9) 10^3/u L Eos # (Auto) 0.8 (0.0-0.8) 10^3/u L Baso # (Auto) 0.2 H (0.0-0.1) 10^3/u L Nucleated RBC % (a uto) 0 % Nucleated RBCs # 0.0 /100WBC PT 22.80 H (12.1-14.9) SECO NDS INR 1.94 H (0.8-1.2) Discharge Plan Discharge Patient Disposition: Home Clinical Impression: Anemia, Morbid obesity, Diabetes mellitus, Atrial fibrillation, Congestive heart failure, Chronic kidney disease (CKD) Condition: Stable Prescriptions: No Action (DME) DME: [facility] See Rx Instructions .ROUTE .MEDSUPPLY Qty: 1 RF: 0 ondansetron HCl [Zofran] 4 mg tablet 4 mg PO Q6H PRN (Reason: NAUSEA) RF: 0 pregabalin 75 mg capsule 75 mg PO TID 30 Days Qty: 90 RF: 1 hydrocodone-acetaminophen 10-325 mg tablet 1 tab PO Q6H PRN (Reason: pain) 30 Days Qty: 120 RF: 0 nystatin [Nyamyc] 100,000 unit/gram powder 1 applic TOPICAL TID Qty: 60 RF: 2 sodium bicarbonate 650 mg tablet 650 mg PO BID 30 Days Qty: 60 RF: 2 pantoprazole 40 mg tablet,delayed release (DR/EC) 40 mg PO BID 30 Days Qty: 60 RF: 2 olanzapine 2.5 mg tablet 2.5 mg PO BID Qty: 60 RF: 5 warfarin 5 mg tablet 5 mg PO DAILY Qty: 90 RF: 2 polyethylene glycol 3350 17 gram Powder In Packet 17 g PO DAILY PRN (Reason: constipation) Qty: 30 RF: 0 sennosides-docusate sodium 8.6-50 mg Tablet 1 tab PO BID Qty: 60 RF: 0 potassium chloride 10 mEq Tablet Extended Release 20 meq PO BID Qty: 60 RF: 0 tamsulosin 0.4 mg Capsule 0.4 mg PO DAILY Qty: 30 RF: 0 metoprolol tartrate 50 mg Tablet 75 mg PO BID Qty: 90 RF: 0 Invanz 1 gram recon soln 1 gm IV DAILY 14 Days RF: 0 furosemide 80 mg tablet 80 mg PO BID Qty: 30 RF: 0 Ferretts 325 mg (106 mg iron) tablet 325 mg PO EVERY OTHER DAY Qty: 30 RF: 0 buspirone 15 mg Tablet 15 mg PO BID RF: 0 insulin aspart U-100 [Novolog U-100 Insulin aspart] 100 unit/mL Solution See Rx Instructions .ROUTE .COMPLEX Qty: 10 RF: 0 Discharge Orders: Discharge Order (Routine); Ordered 05/28/20 Ordered By: Tevin Carranza Referrals: Ailin,FAITH, [facility] MAKER [Primary Care Provider] - Discharge Diet: Usual diet Discharge Activity: Increase activity as tolerated Activity Restrictions/Additional Instructions: Follow-up with your primary care doctor as needed. Coding Level of Care Code ED Environmental Health Aide for Elvira Flowers
[2020-05-28 12:00] LABS: Basophils # 0.2 10^3/uL (0.0-0.1); Basophils % 2.3 %; Eosinophils # 0.8 10^3/uL (0.0-0.8); Eosinophils % 8.7 %; Hematocrit 30.2 % (42.0-52.0); Hemoglobin 8.2 g/dL (11.7-16.6); Lymphocytes # 0.6 10^3/uL (0.8-4.8); Lymphocytes % 6.6 %; Mean Corpuscular HGB Conc 27.2 g/dL (30.0-36.0); Mean Corpuscular Hemoglobin 20.2 pg (28.0-34.0); Mean Corpuscular Volume 74.4 fL (80-94); Mean Platelet Volume 9.5 fL (7.4-10.4); Monocytes # 0.8 10^3/uL (0.2-0.9); Monocytes % 8.5 %; Neutrophils # 7.08 10^3/uL (1.8-7.7); Neutrophils % 73.3 %; Nucleated Red Blood Cells % 0 %; Platelet Count 452 10^3/cmm (130-400); Red Blood Count 4.06 10^6/uL (4.1-5.3); Red Cell Distribution Width 23.7 % (12.1-15.1); White Blood Count 9.7 10^3/uL (4.0-10.0)
[2020-05-28 12:08] LABS: INR 1.94 (0.8-1.2)
[2020-05-28 13:46] VITALS: BP 111/52; PULSE 83; RESP 20; O2SAT 94
== END 2020-05-28 13:47 | disposition home or self-care (01) ==
PROVIDERS: Emergency Provider Family Medicine; PCP Nurse Practitioner Family
DX: D64.9 Anemia, unspecified (principal); E66.01 Morbid (severe) obesity due to excess calories; I48.91 Unspecified atrial fibrillation; E11.22 Type 2 diabetes mellitus with diabetic chronic kidney disease; I13.0 Hypertensive heart and chronic kidney disease with heart failure and stage 1 through stage 4 chronic kidney disease, or unspecified chronic kidney disease; N18.9 Chronic kidney disease, unspecified; I50.9 Heart failure, unspecified; Z79.4 Long term (current) use of insulin; Z79.01 Long term (current) use of anticoagulants
CPT/HCPCS: 12345; 85025; 85610; 99282

== ENCOUNTER 2020-06-07 15:21 | Outpatient (CLI) | payer MEDICARE, SELFPAY ==
[2020-06-07 16:11] LABS: Basophils # 0.2 10^3/uL (0.0-0.1); Hematocrit 32.8 % (42.0-52.0); Hemoglobin 8.9 g/dL (11.7-16.6); Lymphocytes # 1.1 10^3/uL (0.8-4.8); Lymphocytes % 9.8 %; Mean Corpuscular HGB Conc 27.1 g/dL (30.0-36.0); Mean Corpuscular Hemoglobin 20.7 pg (28.0-34.0); Mean Corpuscular Volume 76.3 fL (80-94); Mean Platelet Volume 10.7 fL (7.4-10.4); Monocytes # 1.1 10^3/uL (0.2-0.9); Monocytes % 9.6 %; Neutrophils # 6.58 10^3/uL (1.8-7.7); Nucleated Red Blood Cells % 0 %; Platelet Count 395 10^3/cmm (130-400); Red Cell Distribution Width 24.5 % (12.1-15.1)
[2020-06-07 16:38] LABS: Alanine Aminotransferase 11 U/L (0-41); Albumin Level 3.6 g/dL (3.5-5.2); Alkaline Phosphatase 171 IU/L (40-130); Anion Gap 17.8 (5-19); Aspartate Amino Transferase 26 U/L (0-40); Blood Urea Nitrogen 19 mg/dL (8-23); Calcium 8.8 mg/dL (8.5-10.5); Carbon Dioxide 29 mmol/L (22-29); Chloride 96 mmol/L (98-107); Ferritin 75 ng/mL (30-400); Glomerular Filtration Rate 75.2 mL/min (90-130); Glucose 136 mg/dL (65-115); Iron 28 ug/dL (59-158); Osmolality Calculated 290 mOsm/kg (285-295); Potassium 4.8 mmol/L (3.5-5.1); Sodium 138 mmol/L (136-145); Total Bilirubin 0.7 mg/dL (0.15-1.2); Total Iron Binding Capacity 253 mcg/dl; Total Protein 7.6 g/dL (6.6-8.7); Unsaturated Iron Binding 225 ug/dL (112-347)
[2020-06-07 17:31] LABS: Bilirubin Urine Neg (Negative); Blood Urine 3+ (Negative); Glucose Urine UA Norm (Normal); Ketones Urine Negative (Negative); Leukocyte Esterase Urine Negative (Negative); Nitrate Urine Negative (Negative); Protein Urine Neg (Negative); RBC Urine 40-50 /hpf (0-2); Specific Gravity, Urine 1.015 (1.005-1.030); Urine Appearance Clear (CLEAR); Urine Color Yellow (Yellow); Urobilinogen Urine 1 mg/dL (Negative); pH Urine 5 (5-7)
[2020-06-07 17:32] LABS: Add Urine Culture? Yes; Bacteria Urine 2+ /hpf; Squamous Epithelial Cell Urine 0-4 /hpf (0-5); WBC Urine 0-4 /hpf (0-5)
== END 2020-06-07 15:22 | disposition home or self-care (01) ==
LOC: LAB 15:22
PROVIDERS: PCP Nurse Practitioner Family; Visit Provider Nurse Practitioner Family
DX: D50.9 Iron deficiency anemia, unspecified (principal); N18.9 Chronic kidney disease, unspecified
CPT/HCPCS: 80053; 81001; 82728; 83540; 83550; 85025

== ENCOUNTER 2020-06-25 18:40 | Outpatient (CLI) | payer MEDICARE, SELFPAY ==
[2020-06-25 18:51] LABS: Basophils # 0.2 10^3/uL (0.0-0.1); Basophils % 2.2 %; Eosinophils # 1.8 10^3/uL (0.0-0.8); Eosinophils % 15.8 %; Hematocrit 31.8 % (42.0-52.0); Lymphocytes # 1.1 10^3/uL (0.8-4.8); Lymphocytes % 9.7 %; Mean Corpuscular HGB Conc 28.3 g/dL (30.0-36.0); Mean Corpuscular Hemoglobin 21.7 pg (28.0-34.0); Mean Corpuscular Volume 76.8 fL (80-94); Mean Platelet Volume 10.5 fL (7.4-10.4); Monocytes # 0.8 10^3/uL (0.2-0.9); Monocytes % 6.8 %; Neutrophils # 7.22 10^3/uL (1.8-7.7); Nucleated Red Blood Cells % 0 %; Platelet Count 468 10^3/cmm (130-400); Red Blood Count 4.14 10^6/uL (4.1-5.3); Red Cell Distribution Width 24.4 % (12.1-15.1); White Blood Count 11.1 10^3/uL (4.0-10.0)
[2020-06-25 19:15] LABS: Alanine Aminotransferase 14 U/L (0-41); Albumin Level 3.8 g/dL (3.5-5.2); Alkaline Phosphatase 183 IU/L (40-130); Anion Gap 15.3 (5-19); Aspartate Amino Transferase 23 U/L (0-40); Blood Urea Nitrogen 22 mg/dL (8-23); Calcium 9.2 mg/dL (8.5-10.5); Carbon Dioxide 31 mmol/L (22-29); Chloride 98 mmol/L (98-107); Globulin 3.5 g/dL (1.3-4.6); Glomerular Filtration Rate 67.4 mL/min (90-130); Glucose 187 mg/dL (65-115); Magnesium 1.9 mg/dL (1.7-2.3); Osmolality Calculated 298 mOsm/kg (285-295); Phosphorus 3.2 mg/dL (2.5-4.5); Potassium 4.3 mmol/L (3.5-5.1); Sodium 140 mmol/L (136-145); Total Bilirubin 0.6 mg/dL (0.15-1.2); Total Protein 7.3 g/dL (6.6-8.7)
[2020-06-25 19:56] LABS: Estmated Average Glucose 163; Hemoglobin A1C 7.3 % (4.0-6.0)
== END 2020-06-25 18:41 | disposition home or self-care (01) ==
LOC: LAB 18:41
PROVIDERS: PCP Nurse Practitioner Family; Visit Provider Nurse Practitioner Family
DX: E11.9 Type 2 diabetes mellitus without complications (principal); D50.9 Iron deficiency anemia, unspecified
CPT/HCPCS: 80053; 83036; 83735; 84100; 85025

== ENCOUNTER → 2020-07-02 09:59 | Outpatient (BNVA) | payer MEDICARE, SELFPAY | PROVIDERS: PCP Nurse Practitioner Family; Visit Provider Anesthesiology | DX: G89.29 Other chronic pain (principal); M54.5 Low back pain; Z79.891 Long term (current) use of opiate analgesic | CPT/HCPCS: 99213; 99214 ==

== ENCOUNTER → 2020-10-09 10:19 | Outpatient (BNVA) | payer OTHER, SELFPAY | PROVIDERS: PCP Nurse Practitioner Family; Visit Provider Nurse Practitioner | DX: G89.29 Other chronic pain (principal); M54.5 Low back pain; E66.01 Morbid (severe) obesity due to excess calories; R60.1 Generalized edema; E11.9 Type 2 diabetes mellitus without complications; Z79.4 Long term (current) use of insulin; Z79.891 Long term (current) use of opiate analgesic | CPT/HCPCS: 99215 ==

== ENCOUNTER → 2020-10-23 11:37 | Outpatient (BNVA) | payer OTHER, SELFPAY | PROVIDERS: PCP Nurse Practitioner Family; Visit Provider Nurse Practitioner Family | DX: E11.9 Type 2 diabetes mellitus without complications (principal); Z79.4 Long term (current) use of insulin; I50.9 Heart failure, unspecified; N40.0 Benign prostatic hyperplasia without lower urinary tract symptoms; E55.9 Vitamin D deficiency, unspecified; E78.5 Hyperlipidemia, unspecified; E61.1 Iron deficiency; E87.6 Hypokalemia; E78.2 Mixed hyperlipidemia; R53.83 Other fatigue | CPT/HCPCS: 85025 ==

== ENCOUNTER → 2020-10-23 15:00 | Outpatient (BNVA) | payer OTHER, SELFPAY | PROVIDERS: PCP Nurse Practitioner Family; Visit Provider Nurse Practitioner Family | DX: E11.9 Type 2 diabetes mellitus without complications (principal); I50.9 Heart failure, unspecified; N40.0 Benign prostatic hyperplasia without lower urinary tract symptoms; E55.9 Vitamin D deficiency, unspecified; E78.5 Hyperlipidemia, unspecified; E61.1 Iron deficiency; I48.91 Unspecified atrial fibrillation; Z79.4 Long term (current) use of insulin | CPT/HCPCS: 80053; 80061; 82306; 83036; 83550; 83735; 83880; 84100; 84443; G0103 ==

== ENCOUNTER 2020-11-05 14:59 | Emergency (ER) | payer OTHER, SELFPAY ==
[2020-11-05 15:06] VITALS: BP 132/88; PULSE 81; RESP 20; TEMP 36.6; O2SAT 97; BMI 49.0
--- NOTE | 2020-11-05 15:16 | ED_ITS ---
HPI - General Adult General: Chief complaint: General Medical Stated complaint: MALAISE/ RENAL INSUFFICIENCY Time Seen by Provider: 11/05/20 15:08 Source: patient Mode of arrival: EMS Limitations: no limitations History of Present Illness: HPI narrative: Patient is a 65-year-old male with a history of anasarca, CHF, chronic atrial fibrillation, CKD, and morbid obesity here for complaints of feeling unusual . When asked to clarify he states he just feels weak. He states symptoms began yesterday morning. He does not seem to be able to elaborate on his symptoms. He does tell me he takes 80 mg of Lasix daily. He states this dose usually causes him to urinate frequently however he has noticed he has not been urinating much. He is concerned regarding his kidneys. Patient denies abdominal pain, nausea, vomiting. Has not had any changes in bowel habits. He has not been running fevers. He has no neurologic complaints. No chest pain/SOB. Onset (ago): day(s) Associated symptoms: Reports malaise; Deny chest pain, confusion, dyspnea, headache(s), nausea, palpitations, syncope or vomiting Treatments prior to arrival: none Review of Systems Const: Reports: malaise; Denies: fever(s), chills, body aches or fatigue Eyes: Denies: change in vision Card: Reports: swelling of feet/ankles (chronic); Denies: chest pain, palpitations, lightheadedness or syncope Resp: Denies: dyspnea GI: Denies: abdominal pain, nausea, vomiting or diarrhea : Reports: other (decreased urine outpt per patient); Denies: flank pain or dysuria Musc: Reports: extremity swelling (chronic LE edema) Neuro: Reports: other (generalized weakness); Denies: headache(s), dizziness or confusion [facility] ED PFSH: Medical History (Updated 11/05/20 @ 16:55 by SABRINA Keita) Anasarca Anxiety Atrial fibrillation BPH (benign prostatic hyperplasia) Cardiomyopathy Chronic bilateral low back pain Chronic idiopathic pain syndrome Chronic kidney disease (CKD) Congestive heart failure 20-25% EF pulmonary hypertension Diabetes mellitus Encounter for long-term opiate analgesic use GERD (gastroesophageal reflux disease) History of cardioversion Failed electrical cardioversion in 2011 for A. fib Hyperlipemia Hypokalemia Iron deficiency Microcytic hypochromic anemia Secondary to iron deficiency. Morbid obesity Due to increased calorie intake and anasarca with BMI 57.8 Venous stasis Vitamin D deficiency Warfarin anticoagulation Yeast infection of the skin Surgical History S/P ankle fusion LEFT S/P cholecystectomy Family History Father Diabetes Social History Smoking and tobacco status: never smoked Second hand smoke exposure: No Alcohol intake: never Marital status: History of recent travel: No Physical Exam Const: COMMON NORMALS: no acute distress, patient oriented x3, no limitations and alert GENERAL APPEARANCE: cooperative NUTRITIONAL APPEARANCE: obese (morbidly obese; BMI 49.0) ORIENTATION/CONSCIOUSNESS: Yes awake, Yes oriented to person, Yes oriented to place and Yes oriented to time HENMT: COMMON NORMALS: normocephalic and atraumatic HEAD & SCALP: normocephalic and atraumatic Resp: COMMON NORMALS: normal respiratory effort and clear to auscultation bilaterally AUSCULTATION: clear to auscultation bilaterally Cardio: COMMON NORMALS: regular rate RATE: regular rate RHYTHM: abnormal rhythm irregularly irregular GI: COMMON NORMALS: Soft to palpation AUSCULTATION: Yes normoactive bowel sounds PALPATION: Yes Soft to palpation and No Tenderness to palpation present (GI) OTHER: extremely large pannus with scaling throughout lower abdomen Extremity: NARRATIVE EXTREMITY EXAM: severe bilateral edema; scaling/venous statsis present to bilateral LEs Neuro: COMMON NORMALS: patient oriented x3 SENSORIUM/ORIENTATION: Yes alert, Yes oriented to person, Yes oriented to place and Yes oriented to time Course Vital Signs: Vital signs: Vital Signs Temperature 97.8 F 11/05/20 15:06 Pulse Rate 80 11/05/20 17:43 Respiratory Rate 22 H 11/05/20 17:43 Blood Pressure 116/67 11/05/20 17:43 Pulse Oximetry 95 11/05/20 17:43 MDM - General Adult MDM Narrative: Medical decision making narrative: Patient's vital signs are stable. Labs showing chronic anemia. His hemoglobin today is 9.2 which is actually higher than he has been previously. His BNP is 1443 which is what he was a few weeks ago when he saw primary care. This is actually improved from previous labs. He has chronic elevations to his troponin-most likely from the elevated BNP. He does not complain of any chest pain or difficulty breathing. EKG does not show any ischemic changes. He has chronic atrial fibrillation. INR is 1.8. At this time I do not feel like we need to keep patient in the hospital as I do not see any acute complaints that they would be managing. Recommend he follow-up with primary care. Return to ED precautions given. Lab Data: Labs: Lab Results 11/05/20 11/05/20 11/05/20 Range/Units 15:30 15:30 15:30 WBC 11.8 H (4.0-10.0) 10^3/ uL RBC 3.75 L (4.1-5.3) 10^6/u L Hgb 9.2 L (11.7-16.6) g/dL Hct 31.6 L (42.0-52.0) % MCV 84.3 (80-94) fL MCH 24.5 L (28.0-34.0) pg MCHC 29.1 L (30.0-36.0) g/dL RDW 17.4 H (12.1-15.1) % Plt Count 400 (130-400) 10^3/c mm MPV 10.1 (7.4-10.4) fL Neut % (Auto) 64.8 % Lymph % (Auto) 7.0 % [place] % (Auto) 7.6 % Eos % (Auto) 18.1 % Baso % (Auto) 2.2 % Neut # (Auto) 7.62 (1.8-7.7) 10^3/u L Lymph # (Auto) 0.8 (0.8-4.8) 10^3/u L [place] # (Auto) 0.9 (0.2-0.9) 10^3/u L Eos # (Auto) 2.1 H (0.0-0.8) 10^3/u L Baso # (Auto) 0.3 H (0.0-0.1) 10^3/u L Nucleated RBC % (a uto) 0 % Nucleated RBCs # 0.0 /100WBC PT (12.1-14.9) SECO NDS INR (0.8-1.2) Sodium 134 L (136-145) mmol/L Potassium 4.0 (3.5-5.1) mmol/L Chloride 95 L (98-107) mmol/L Carbon Dioxide 27 (22-29) mmol/L Anion Gap 16.0 (5-19) BUN 20 (8-23) mg/dL Creatinine 1.1 (0.7-1.2) mg/dL GFR Calculation 67.4 L (90-130) mL/min Glucose 199 H (65-115) mg/dL Calculated Osmolal ity 286 (285-295) mOsm/k g Calcium 9.2 (8.5-10.5) mg/dL Total Bilirubin 0.7 (0.15-1.2) mg/dL AST 23 (0-40) U/L ALT 8 (0-41) U/L Alkaline Phosphata se 160 H (40-130) IU/L Troponin T Baselin e 29 H (0-15) ng/L NT-Pro-B Natriuret Pep 1443 H (0-125) pg/mL Total Protein 8.3 (6.6-8.7) g/dL Albumin 4.0 (3.5-5.2) g/dL Globulin 4.3 (1.3-4.6) g/dL Urine Color (Yellow) Urine Appearance (CLEAR) Urine pH (5-7) Ur Specific Gravit y (1.005-1.030) Urine Protein (Negative) Urine Glucose (UA) (Normal) Urine Ketones (Negative) Urine Blood (Negative) Urine Nitrate (Negative) Urine Bilirubin (Negative) Urine Urobilinogen (Negative) mg/dL Ur Leukocyte Christa ase (Negative) 11/05/20 11/05/20 Range/Units 15:30 16:00 WBC (4.0-10.0) 10^3/ uL RBC (4.1-5.3) 10^6/u L Hgb (11.7-16.6) g/dL Hct (42.0-52.0) % MCV (80-94) fL MCH (28.0-34.0) pg MCHC (30.0-36.0) g/dL RDW (12.1-15.1) % Plt Count (130-400) 10^3/c mm MPV (7.4-10.4) fL Neut % (Auto) % Lymph % (Auto) % [place] % (Auto) % Eos % (Auto) % Baso % (Auto) % Neut # (Auto) (1.8-7.7) 10^3/u L Lymph # (Auto) (0.8-4.8) 10^3/u L [place] # (Auto) (0.2-0.9) 10^3/u L Eos # (Auto) (0.0-0.8) 10^3/u L Baso # (Auto) (0.0-0.1) 10^3/u L Nucleated RBC % (a uto) % Nucleated RBCs # /100WBC PT 21.90 H (12.1-14.9) SECO NDS INR 1.84 H (0.8-1.2) Sodium (136-145) mmol/L Potassium (3.5-5.1) mmol/L Chloride (98-107) mmol/L Carbon Dioxide (22-29) mmol/L Anion Gap (5-19) BUN (8-23) mg/dL Creatinine (0.7-1.2) mg/dL GFR Calculation (90-130) mL/min Glucose (65-115) mg/dL Calculated Osmolal ity (285-295) mOsm/k g Calcium (8.5-10.5) mg/dL Total Bilirubin (0.15-1.2) mg/dL AST (0-40) U/L ALT (0-41) U/L Alkaline Phosphata se (40-130) IU/L Troponin T Baselin e (0-15) ng/L NT-Pro-B Natriuret Pep (0-125) pg/mL Total Protein (6.6-8.7) g/dL Albumin (3.5-5.2) g/dL Globulin (1.3-4.6) g/dL Urine Color Yellow (Yellow) Urine Appearance Clear (CLEAR) Urine pH 7 (5-7) Ur Specific Gravit y 1.005 (1.005-1.030) Urine Protein Neg (Negative) Urine Glucose (UA) Norm (Normal) Urine Ketones Negative (Negative) Urine Blood Neg (Negative) Urine Nitrate Negative (Negative) Urine Bilirubin Neg (Negative) Urine Urobilinogen 1 H (Negative) mg/dL Ur Leukocyte Christa ase Negative (Negative) Imaging Data^: CXR: Radiologist's impression: [address] [address] XRay Report Signed Patient: Jacob Ibarra Unit #: [id number] : 1955 Age/Sex: 65 / M ADM Date: 11/05/20 Loc: ER Room/Bed: Attending Dr: Ordering Provider/Ordering MD: Lidia Sabillon Date of Service: 11/05/20 Procedure(s): XR chest 1V portable [id number] Accession Number(s): [id number] Report Number: [id number] PROCEDURE INFORMATION: Exam: XR Chest Exam date and time: 11/05/2020 3:29 PM Age: 65 years old Clinical indication: Other: Malaise; Patient HX: Can't eat or drink, weakness; Additional info: Feeling ill TECHNIQUE: Imaging protocol: XR of the chest Views: Frontal portable semiupright view of the chest. COMPARISON: CR XR chest 1V portable [id number] 05/18/2020 8:05 PM FINDINGS: Tubes, catheters and devices: EKG leads are present overlying the chest. Lungs: The pulmonary vasculature is normal. Mild left lateral and right central basilar linear subsegmental atelectasis. The lungs are otherwise peripherally clear bilaterally. Pleural spaces: No pleural effusion. No pneumothorax. Heart/Mediastinum: Stable cardiomegaly. Mediastinum: Stable. Bones/joints: Stable. XR/XR chest 1V portable [id number] IMPRESSION: Mild left lateral and right central basilar linear subsegmental atelectasis. Dictated By: Bassam Torres MD Signed By: Bassam Torres MD Signed Date/Time: 11/05/20 155 DD/ 155 Discharge Plan Discharge Patient Disposition: Home Clinical Impression: Generalized weakness, Chronic anemia Chronic CHF (congestive heart failure) Qualifiers: Heart failure type: unspecified Qualified Code(s): I50.9 - Heart failure, unspecified Condition: Stable Prescriptions: No Action insulin aspart U-100 [Novolog Flexpen U-100 Insulin] 100 unit/mL (3 mL) insulin pen 5 unit SUBCUT TID Qty: 15 RF: 0 furosemide 80 mg tablet 80 mg PO BID 30 Days Qty: 60 RF: 2 (DME) DME: [facility] See Rx Instructions .ROUTE .MEDSUPPLY Qty: 1 RF: 0 ondansetron HCl [Zofran] 4 mg tablet 4 mg PO Q6H PRN (Reason: NAUSEA) RF: 0 warfarin 2.5 mg tablet 2.5 mg PO DIRECTED RF: 0 warfarin 1 mg tablet 1 mg PO DIRECTED RF: 0 buspirone 15 mg tablet 15 mg PO BID Qty: 60 RF: 0 hydrocodone-acetaminophen 10-325 mg tablet 1 tab PO .5 times daily PRN (Reason: pain) 30 Days Qty: 150 RF: 0 pregabalin 75 mg capsule 75 mg PO TID 30 Days Qty: 90 RF: 0 warfarin 5 mg tablet 5 mg PO DAILY Qty: 90 RF: 2 nystatin [Nyamyc] 100,000 unit/gram powder 1 applic TOPICAL TID 30 Days Qty: 120 RF: 2 ferrous fumarate [Ferretts] 325 mg (106 mg iron) tablet See Rx Instructions .ROUTE .COMPLEX Qty: 30 RF: 2 hydrocodone-acetaminophen 10-325 mg tablet 1 tab PO QID 5 Days Qty: 20 RF: 0 pantoprazole 40 mg tablet,delayed release (DR/EC) See Rx Instructions .ROUTE .COMPLEX Qty: 60 RF: 0 metoprolol tartrate 50 mg tablet See Rx Instructions .ROUTE .COMPLEX Qty: 90 RF: 0 potassium chloride 10 mEq tablet extended release 20 meq PO BID 30 Days Qty: 120 RF: 2 sodium bicarbonate 650 mg tablet See Rx Instructions .ROUTE .COMPLEX Qty: 60 RF: 0 tamsulosin 0.4 mg capsule See Rx Instructions .ROUTE .COMPLEX Qty: 30 RF: 0 olanzapine 2.5 mg tablet See Rx Instructions .ROUTE .COMPLEX Qty: 60 RF: 0 polyethylene glycol 3350 17 gram Powder In Packet 17 g PO DAILY PRN (Reason: constipation) Qty: 30 RF: 0 sennosides-docusate sodium 8.6-50 mg Tablet 1 tab PO BID Qty: 60 RF: 0 Discharge Orders: Discharge ED (Routine); Ordered 11/05/20 Ordered By: Lidia Sabillon Referrals: FAITH Castanon, [employer] [Primary Care Provider] - Activity Restrictions/Additional Instructions: As discussed please follow-up with your primary care provider at the end of the week or early next week for reevaluation. Return to the emergency department for worsening weakness, chest pain, shortness of breath, difficulty breathing, or any other concerns you may have. I hope you begin to feel better soon. Coding Level of Care Code ED Skein Bleacher for Teeg Fwd Exam Detailed
--- NOTE | 2020-11-05 15:16 | ECG_ITS ---
[facility] Test Date: 2020-11-05 Pat Name: Jacob Ibarra Department: Room: Gender: Male Lead Application Architect: : 1955 Requested By: Lidia Sabillon Order Number: [id number] Alfredo MD: Caesar Webber M.D. Measurements Intervals [place] Rate: 74 P: ND: QRS: -50 QRSD: 91 T: -7 QT: 408 QTc: 453 Interpretive Statements ATRIAL FIBRILLATION WITH ABERRANT CONDUCTION OR VENTRICULAR PREMATURE COMPLEXES INFERIOR MYOCARDIAL INFARCTION [40+ ms Q WAVE AND/OR ST/T ABNORMALITY IN II/aVF], OF INDETERMINATE AGE ANTEROSEPTAL MYOCARDIAL INFARCTION [40+ ms Q WAVE IN V1-V4], PROBABLY OLD Compared to ECG 05/15/2020 01:18:04 No significant changes Electronically Signed On 11-05-2020 16:58:07 CDT by Caesar Webber M.D. [id number]
[2020-11-05 15:43] LABS: Basophils # 0.3 10^3/uL (0.0-0.1); Basophils % 2.2 %; Eosinophils # 2.1 10^3/uL (0.0-0.8); Eosinophils % 18.1 %; Hematocrit 31.6 % (42.0-52.0); Hemoglobin 9.2 g/dL (11.7-16.6); Lymphocytes # 0.8 10^3/uL (0.8-4.8); Mean Corpuscular HGB Conc 29.1 g/dL (30.0-36.0); Mean Corpuscular Hemoglobin 24.5 pg (28.0-34.0); Mean Corpuscular Volume 84.3 fL (80-94); Mean Platelet Volume 10.1 fL (7.4-10.4); Monocytes # 0.9 10^3/uL (0.2-0.9); Monocytes % 7.6 %; Neutrophils # 7.62 10^3/uL (1.8-7.7); Neutrophils % 64.8 %; Nucleated Red Blood Cells % 0 %; Platelet Count 400 10^3/cmm (130-400); Red Blood Count 3.75 10^6/uL (4.1-5.3); Red Cell Distribution Width 17.4 % (12.1-15.1); White Blood Count 11.8 10^3/uL (4.0-10.0)
[2020-11-05 16:02] LABS: INR 1.84 (0.8-1.2)
[2020-11-05 16:15] LABS: Troponin(5th) Baseline 29 ng/L (0-15)
[2020-11-05 16:17] LABS: Add Urine Microscopic? NO; Charge for UA Resulting for Rev
[2020-11-05 16:21] LABS: Bilirubin Urine Neg (Negative); Blood Urine Neg (Negative); Glucose Urine UA Norm (Normal); Ketones Urine Negative (Negative); Leukocyte Esterase Urine Negative (Negative); Nitrate Urine Negative (Negative); Protein Urine Neg (Negative); Specific Gravity, Urine 1.005 (1.005-1.030); Urine Appearance Clear (CLEAR); Urine Color Yellow (Yellow); Urobilinogen Urine 1 mg/dL (Negative); pH Urine 7 (5-7)
[2020-11-05 16:22] LABS: Alanine Aminotransferase 8 U/L (0-41); Alkaline Phosphatase 160 IU/L (40-130); Aspartate Amino Transferase 23 U/L (0-40); Blood Urea Nitrogen 20 mg/dL (8-23); Calcium 9.2 mg/dL (8.5-10.5); Carbon Dioxide 27 mmol/L (22-29); Chloride 95 mmol/L (98-107); Globulin 4.3 g/dL (1.3-4.6); Glomerular Filtration Rate 67.4 mL/min (90-130); Glucose 199 mg/dL (65-115); NT Pro B Type Natriuretic Pept 1443 pg/mL (0-125); Osmolality Calculated 286 mOsm/kg (285-295); Sodium 134 mmol/L (136-145); Total Bilirubin 0.7 mg/dL (0.15-1.2); Total Protein 8.3 g/dL (6.6-8.7)
[2020-11-05 17:43] VITALS: BP 116/67; PULSE 80; RESP 22; O2SAT 95
== END 2020-11-05 17:25 | disposition home or self-care (01) ==
PROVIDERS: Emergency Provider Physician Assistant; PCP Nurse Practitioner Family
DX: R53.1 Weakness (principal); D64.89 Other specified anemias; I11.0 Hypertensive heart disease with heart failure; I50.9 Heart failure, unspecified; Z79.01 Long term (current) use of anticoagulants; Z79.4 Long term (current) use of insulin; I48.91 Unspecified atrial fibrillation; E11.9 Type 2 diabetes mellitus without complications; E78.5 Hyperlipidemia, unspecified
CPT/HCPCS: 71045; 80053; 81003; 83880; 84484; 85025; 85610; 93005; 99284

== ENCOUNTER → 2020-11-07 12:36 | Outpatient (BNVA) | payer OTHER, SELFPAY | PROVIDERS: PCP Nurse Practitioner Family; Visit Provider Anesthesiology | DX: G89.29 Other chronic pain (principal); M54.5 Low back pain; E66.01 Morbid (severe) obesity due to excess calories; Z79.891 Long term (current) use of opiate analgesic | CPT/HCPCS: 99213 ==

== ENCOUNTER → 2020-12-10 14:29 | Outpatient (BNVA) | payer OTHER, SELFPAY | PROVIDERS: PCP Nurse Practitioner Family; Visit Provider Anesthesiology | DX: G89.29 Other chronic pain (principal); M54.5 Low back pain; E66.01 Morbid (severe) obesity due to excess calories; Z79.891 Long term (current) use of opiate analgesic | CPT/HCPCS: 99213 ==